=== PATIENT | male | born 1955 | race African-American/Black ===

== ENCOUNTER 2018-06-23 20:30 | Emergency (ER) | payer BC ==
--- NOTE | 2018-06-23 20:44 | ED ---
Back Pain - HPI Summary HPI Summary: The pt is a 63 y/o male presenting to [facility] c/o sudden onset mid back pain since 2 days ago. The pain rated 7/10 in severity radiates to the neck and UE and is aggravated by lying down, turning his head and sudden movement. He took a hot bath to temporary relief. The pt denies CP, abd pain, and SOB. He has never had similar sx before. The pt reports a Mhx of hyperhidrosis and back surgery. - History of Current Complaint Chief Complaint: EDBackInjuryPain Stated Complaint: BACK PAIN Time Seen by Provider: 06/23/18 20:39 Hx Obtained From: Patient Onset/Duration: Sudden Onset, Lasting Days, Still Present Timing: Constant Back Pain Location: Is Discrete @ - mid back, Radiates To - Neck, UEs Severity Initially: Moderate Severity Currently: Moderate Pain Intensity: 7 Pain Scale Used: 0-10 Numeric Aggravating Symptom(s): Movement, Other - Turning his head, Lying down Alleviating Symptom(s): Other - Taking a hot bath - Allergies/Home Medications Allergies/Adverse Reactions: Allergies Allergy/AdvReac Type Severity Reaction Status Date / Time No Known Allergies Allergy Verified 08/15/16 09:25 PMH/Surg Hx/FS Hx/Imm Hx Previously Healthy: No - Hx of hyperhydrosis Endocrine/Hematology History: Denies: Hx Diabetes Cardiovascular History: Reports: Hx Hypertension - OFF MEDS FOR 2 YEARS Sensory History: Denies: Hx Deafness - Cancer History Cancer Type, Location and Year: None reported - Surgical History Surgery Procedure, Year, and Place: Ganglion vasectomy (pt is unsure of the full name) Infectious Disease History: No Infectious Disease History: Denies: Traveled Outside the [place] in Last 30 Days - Family History Known Family History: Positive: Hypertension - Social History Occupation: Unemployed Lives: Alone Alcohol Use: Occasionally Substance Use Type: Reports: None Smoking Status (MU): Never Smoked Tobacco Review of Systems Negative: Chest Pain Negative: Shortness Of Breath Negative: Abdominal Pain Musculoskeletal: Other - Positive: mid-back pain, UE pain, neck pain All Other Systems Reviewed And Are Negative: Yes Physical Exam - Summary Physical Exam Summary: Appearance: Well-appearing, Well-nourished, lying in bed comfortably Skin: Warm, dry, no obvious rash Eyes: sclera anicteric, no conjunctival pallor ENT: mucous membranes moist, pharynx appears normal Neck: Supple, nontender Respiratory: Clear to auscultation, no signs of respiratory distress Cardiovascular: Normal S1, S2. No murmurs. Normal distal pulses in tibial and radial bilaterally.Markedly elevated BP Abdomen: Soft, nontender, normal active bowel sounds present Musculoskeletal: Normal, Strength/ROM Intact Neurological: A&Ox3, awake and alert, mentation is normal, speech is fluent and appropriate Psychiatric: affect is normal, does not appear anxious or depressed Triage Information Reviewed: Yes Vital Signs On Initial Exam: Initial Vitals Temp Pulse Resp BP Pulse Ox 98.3 F 85 18 227/126 95 06/23/18 20:32 06/23/18 20:32 06/23/18 20:32 06/23/18 20:32 06/23/18 20:32 Vital Signs Reviewed: Yes Diagnostics - Vital Signs Vital Signs Temp Pulse Resp BP Pulse Ox 06/23/18 20:32 98.3 F 85 18 227/126 95 - Laboratory Result Diagrams: 06/23/18 20:52 06/23/18 20:52 Lab Statement: Any lab studies that have been ordered have been reviewed, and results considered in the medical decision making process. - CT Chest /Thorax CTA CT Interpretation Completed By: Radiologist - IMPRESSION: No pulmonary embolism.No aortic dissection.The ED physician reviewed this radiology report. 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 The pain rated 7/10 in severity radiates to the neck and UE and is aggravated by lying down, turning his head and sudden movement. The pt denies CP, abd pain, and SOB.A physical exam revealed markedly elevated BP. A Chest/Thorax CTA unremarkable. An EKG reveals RBBB and LAVB. In the ED course, pt was given Iodixanol 100ml IV, Labetalol 20 mg IV, Morphine 10 mg Iv and N.s 0.9% 1000 ml IV which improved the symptoms. Allergies noted. Discharge - Discharge Plan Condition: Good Disposition: HOME Prescriptions: Lisinopril/HCTZ 20/12.5(NF) [Zestoretic 20/12.5(NF)] 1 tab PO DAILY #30 tab traMADol TAB* [Ultram*] 50 mg PO Q6HR PRN #15 tab MDD 6 tabs PRN Reason: Pain Patient Education Materials: Hypertension (ED), Thoracic Back Strain (ED) Referrals: Katrin Simpson MD [Primary Care Provider] - - Attestation Statements Document Initiated by Scribe: Yes Documenting Scribe: Paula Issa Provider For Whom Scribe is Documenting (Include Credential): Dr. Mark Zurita MD Scribe Attestation: Paula Guardado , scribed for Dr. Mark Zurita MD on 06/23/18 at 2210.
[2018-06-23] MEDS ORDERED: Morphine VIAL* 4 MG/ML VIAL (1 ml vial) IV ONE (20:45)
[2018-06-23] MEDS ORDERED: Labetalol IV* 5 MG/ML 20 ML VIAL IV PUSH ONE (20:46)
[2018-06-23] MEDS ORDERED: NS 0.9% 1000 ML* 1,000 ML IV ONE (20:46)
[2018-06-23 21:04] LABS: ABS Basophils 0.1 10^3/ul (0-0.2); ABS Eosinophils 0.3 10^3/ul (0-0.6); ABS Lymphocytes 3.4 10^3/ul (1.0-4.8); ABS Monocytes 0.7 10^3/ul (0-0.8); ABS Neutrophils 4.1 10^3/ul (1.5-7.7); ABS Nucleated RBC 0 10^3/ul; Hematocrit 41 % (42-52); Lymphocyte % 39.9 % (25-47); Mean Corpuscular HGB Conc 34 g/dl (31-36); Mean Corpuscular Hemoglobin 31 pg (27-31); Mean Corpuscular Volume 91 fL (80-94); Mean Platelet Volume 8.4 fL (7.4-10.4); Nucleated Red Blood Cells % 0.2; Platelet Count 270 10^3/ul (150-450); Red Cell Distribution Width 14 % (10.5-15); White Blood Count 8.6 10^3/ul (3.5-10.8)
[2018-06-23] MEDS ORDERED: Iodixanol 320 (CONTRAST) 100 ML SDV IV ONE (21:16)
[2018-06-23 21:26] LABS: EGFR Non-African American 69.6 (>60)
[2018-06-23 22:28] VITALS: BP 157/96
== END 2018-06-23 22:29 | disposition home or self-care (01) ==
LOC: ED 20:30
DX: M54.6 Pain in thoracic spine (principal)
CPT/HCPCS: 36415; 71275; 80053; 80320; 83605; 84484; 85025; 93005; 96361; 96374; 96375; 99283; G0480; J2270; Q9967

== ENCOUNTER 2019-05-25 11:27 | Emergency (ER) | payer MEDICARE ==
[2019-05-25] MEDS ORDERED: hydrALAZINE IV* 20 MG/ML VIAL IV SLOW PU ONE ×2 (12:30→13:37)
--- NOTE | 2019-05-25 12:31 | ED ---
Hypertension - HPI Summary HPI Summary: The patient is a 64 y/o M presenting to [facility] with a chief complaint of elevated blood pressure this morning. He reports he was at Dr. Matos, urology, office because there was a tumor found in his bladder after having episodes of hematuria. While there, his blood pressure was noted to be high. He has a history of hypertension, but he states he doesnt remember the last time he took the medications because he ran out of them and didnt have them refilled. He denies any chest pain, shortness of breath, headache, or dizziness. Currently, his symptoms are rated 0/10 in severity. PMHx: HTN, hyperhidrosis. FHx: HTN. Nonsmoker, occasional EtOH, no substance use. Medications reviewed. Allergies noted. - History of Current Complaint Chief Complaint: EDHypertension Stated Complaint: HIGH BLOOD PRESSURE PER PT Hx Obtained From: Patient Onset/Duration: Started Hours Ago, Still Present Timing: Lasting Hours Aggravating Factor(s): Other: - not medication-compliant Alleviating Factor(s): Nothing Associated Signs & Symptoms: Other: - Negative: chest pain, shortness of breath , dizziness, headache - Allergies/Home Medications Allergies/Adverse Reactions: Allergies Allergy/AdvReac Type Severity Reaction Status Date / Time No Known Allergies Allergy Verified 08/15/16 09:25 PMH/Surg Hx/FS Hx/Imm Hx Endocrine/Hematology History: Denies: Hx Diabetes Cardiovascular History: Reports: Hx Hypertension - OFF MEDS FOR 2 YEARS Denies: Hx Hypercholesterolemia History: Denies: Hx Dialysis, Hx Renal Disease Sensory History: Denies: Hx Deafness - Cancer History Cancer Type, Location and Year: None reported - Surgical History Surgical History: Yes Surgery Procedure, Year, and Place: Ganglion vasectomy (pt is unsure of the full name), hyperhidrosis Infectious Disease History: No Infectious Disease History: Denies: Traveled Outside the [place] in Last 30 Days - Family History Known Family History: Positive: Hypertension - Social History Alcohol Use: Occasionally Hx Substance Use: No Substance Use Type: Reports: None Hx Tobacco Use: No Smoking Status (MU): Never Smoked Tobacco Review of Systems Positive: Other - elevated blood pressure. Negative: Chest Pain Negative: Shortness Of Breath Neurological: Other - Negative: dizziness. Positive: Headache All Other Systems Reviewed And Are Negative: Yes Physical Exam - Summary Physical Exam Summary: VITAL SIGNS: Reviewed. GENERAL: Patient is a well-developed and nourished male who is lying comfortable in the stretcher. Patient is not in any acute respiratory distress. HEAD AND FACE: No signs of trauma. No ecchymosis, hematomas or skull depressions. No sinus tenderness. EYES: PERRLA, EOMI x 2, No injected conjunctiva, no nystagmus. EARS: Hearing grossly intact. Ear canals and tympanic membranes are within normal limits. MOUTH: Oropharynx within normal limits. NECK: Supple, trachea is midline, no adenopathy, no JVD, no carotid bruit, no c- spine tenderness, neck with full ROM. CHEST: Symmetric, no tenderness at palpation. LUNGS: Clear to auscultation bilaterally. No wheezing or crackles. CVS: Regular rate and rhythm, S1 and S2 present, no murmurs or gallops appreciated. ABDOMEN: Soft, non-tender. No signs of distention. No rebound, no guarding, and no masses palpated. Bowel sounds are normal. EXTREMITIES: FROM in all major joints, no edema, no cyanosis or clubbing. NEURO: Alert and oriented x 3. No acute neurological deficits. Speech is normal and follows commands. SKIN: Dry and warm. Triage Information Reviewed: Yes Vital Signs On Initial Exam: Initial Vitals Temp Pulse Resp BP Pulse Ox 97.8 F 74 18 215/137 100 05/25/19 11:40 05/25/19 11:40 05/25/19 11:40 05/25/19 11:40 05/25/19 11:40 Vital Signs Reviewed: Yes Procedures - Sedation Patient Received Moderate/Deep Sedation with Procedure: No Diagnostics - Vital Signs Vital Signs Temp Pulse Resp BP Pulse Ox 05/25/19 11:40 97.8 F 74 18 215/137 100 - Laboratory Result Diagrams: 05/25/19 12:31 05/25/19 12:31 Lab Statement: Any lab studies that have been ordered have been reviewed, and results considered in the medical decision making process. - Radiology Chest X-Ray Radiology Interpretation Completed By: Radiologist Summary of Radiographic Findings: Impression: No active cardiopulmonary disease is noted. ED physician has reviewed this report. - EKG 1223 Cardiac Rate: NL - 70 bpm EKG Rhythm: Sinus Rhythm Summary of EKG Findings: EKG at 1223 reveals NSR at [address] elevations. ED physician has reviewed and interpreted this EKG. Re-Evaluation - Re-Evaluation First Eval Re-Evaluation Time: 13:00 Change: Unchanged Comment: Patient continues to be hypertensive after Hydralazine. Second Eval Re-Evaluation Time: 15:20 Change: Unchanged Comment: Patient continues to be hypertensive after Hydralazine. We will order Labetalol. Hypertension Course/Dx - Course Assessment/Plan: Patient is a 64 y/o M who has history of HTN with a chief complaint of elevated blood pressure this morning at Dr. Matos office without any associated symptoms of chest pain, shortness of breath, dizziness, or headache. He has not been medication compliant for an unknown amount of time. Blood work without a significant abnormality. EKG shows a normal sinus rhythm without ST elevations. Chest x-ray shows no acute pathology. In the ED course the patient was given 40 mg of hydralazine, and the patient is still hypertensive. The patient was given 20 mg of labetalol and the patient is hypotensive. The patient continues to be asymptomatic. I discussed my physical exam and findings with Dr. Sanford from the hospitalist services who accepted the patient for admission. Addendum: Dr. Snyder from the hospitalist services reports that she tried to admit the patient and he refuses. The patient will sign AGAINST MEDICAL ADVICE. I extensively discussed with the patient the benefits and risk of leaving AMA. I also discussed the alternatives to leaving AMA, however, the patient still insist to leave the hospital AMA. The patient is clinically sober, free from distracting injury, appears to have intact insight and judgment and reason and in my opinion has the capacity to make decisions. Patient has full capacity and is cognitively intact. The patient presents with uncontrolled hypertension, I have explained that I am concerned with these symptoms and may represent Angina, AR, CVA and . The patient verbalizes understanding of my concerns. I have also explained the results of the labs and even though they are normal. The primary nurse and the charge nurse also strongly recommended that the patient should not leave AMA. Patient understands the risks of leaving AMA, which includes but is not restricted to . Patient signed the AMA form. Patient was also advised to return to ED if he changes his mind or if the symptoms worsen or other symptoms appear. Patient understands and agrees. Again, I discussed all the findings and test results with the patient. Patient was instructed to return to the emergency room immediately if any of the symptoms return or worsen. Plan of care was discussed with the patient and understands and agrees. All questions were answered at patient satisfaction. There were no further complaints or concerns. Patient signed AMA and he was discharged AMA. - Diagnoses Provider Diagnoses: Uncontrolled hypertension - Physician Notifications Discussed Care Of Patient With: Nini Sanford - hospitalist Time Discussed With Above Provider: 14:20 Instructed by Provider To: Other - I discussed the patients case with Dr. Sanford, who accepts the patient for admission. Dr. Snyder from the hospitalist services reports that the patient is declining admission. She states she will send prescriptions for hypertensive medications, and she has set up an appointment for him at [facility]. Discharge ED - Sign-Out/Discharge Documenting (check all that apply): Patient Departure - Patient will leave AMA. - Discharge Plan Condition: Stable Disposition: AGAINST MEDICAL ADVICE Prescriptions: Amlodipine Besylate [Norvasc] 10 mg PO DAILY #30 tablet Hydrochlorothiazide TAB* [Hydrodiuril TAB*] 25 mg PO DAILY 30 Days #30 tab Referrals: Katrin Simpson MD [Primary Care Provider] - [facility] [Outside] - Billing Disposition and Condition Condition: STABLE Disposition: Against Medical Advice - Attestation Statements Document Initiated by Sharda: Yes Documenting Scribe: Camilla Gaming Provider For Whom Sharda is Documenting (Include Credential): Dr. Maury Fowler MD Scribe Attestation: Camilla Guardado scribed for Dr. Maury Fowler MD on 05/25/19 at 1858. Scribe Documentation Reviewed: Yes Provider Attestation: The documentation as recorded by the Camilla carrizales accurately reflects the service I personally performed and the decisions made by me, Dr. Maury Fowler MD Status of Scribdarrius Document: Viewed
[2019-05-25] MEDS ORDERED: HYDROmorphone INJ* 0.5 MG/0.5 ML SYRINGE IV ONE (12:33)
[2019-05-25] MEDS ORDERED: hydrALAZINE IV* 20 MG/ML VIAL ONE (12:35)
[2019-05-25 12:58] LABS: ABS Basophils 0.1 10^3/ul (0-0.2); ABS Eosinophils 0.1 10^3/ul (0-0.6); ABS Lymphocytes 1.5 10^3/ul (1.0-4.8); ABS Monocytes 0.5 10^3/ul (0-0.8); ABS Neutrophils 4.2 10^3/ul (1.5-7.7); Hematocrit 44 % (42-52); Hemoglobin 14.7 g/dL (14.0-18.0); Lymphocyte % 23.7 %; Mean Corpuscular HGB Conc 34 g/dL (31-36); Mean Corpuscular Hemoglobin 31 pg (27-31); Mean Corpuscular Volume 91 fL (80-94); Mean Platelet Volume 8.4 fL (7.4-10.4); Nucleated Red Blood Cells % 0.1; Platelet Count 219 10^3/uL (150-450); Red Blood Count 4.78 10^6 /uL (4.18-5.48); Red Cell Distribution Width 14 % (10-15); White Blood Count 6.4 10^3/uL (3.5-10.8)
[2019-05-25 13:14] LABS: Albumin 4.4 g/dL (3.2-5.2); Albumin/Globulin Ratio 1.8 (1-3); BUN/Creatinine Ratio 16.5 (8-20); Calcium 9.4 mg/dL (8.6-10.3); EGFR African American 87.7 (>60); EGFR Non-African American 72.5 (>60); Globulin 2.5 g/dL (2-4); Total Bilirubin 0.4 mg/dL (0.2-1.0); Total Protein 6.9 g/dL (6.4-8.9)
[2019-05-25 13:16] LABS: Troponin I 0.01 ng/mL (<0.04)
[2019-05-25 13:18] LABS: CKMB ng/mL 2.6 ng/mL (0.6-6.3)
[2019-05-25 13:39] LABS: TSH (Thyroid Stimulating Horm) 1.01 mcIU/mL (0.34-5.60)
[2019-05-25] MEDS ORDERED: Labetalol IV* 5 MG/ML 20 ML VIAL IV PUSH ONE ×2 (15:23→15:25)
--- NOTE | 2019-05-25 16:15 | CONSULT ---
Subjective Date of Service: 05/25/19 Interval History: Medicine Consult Note 64 M PMH HTN, bladder mass concerning for cancer currently in outpt workup., he presented to clinic this morning and wa found to be hypertensive to systolic 200s and thus was referred ot the ED He had no GUTIÉRREZ, visual sx, chest pain, shortness of breath, GI or MSK complaints. He has a history of HTN and has been off meds for svereal years, he otherwise considers himself healthy. He has no other complaints, he recently relocated from [place] and hasnt reestablished with primary care. He eats a fairly healthy varied diet and exercises by riding his bike daily never with chest pain ER course: 215/130s, Recd 40mg IV Hydral with improvement to 170s, Labetalol 20mg IV, mild improvement tot the 160s. I offered pt inpatient mgmt., starting oral meds and monitoring of which he has declined. He understands the risks pof being d/c to home and feels strongly he would feel calmer and have better BP at home none theless. Family History: Findings - + HTN Cataract Glaucoma Social History: Findings - Lives with sister, 20 pack year smoker quit in 2003, 1-2 beers per week, never illicits Past Medical History: Unchanged from Admission Review of Systems - Measurements Intake and Output: Intake and Output Last 24 Hours 05/23/19 05/24/19 05/25/19 05/26/19 06:59 06:59 06:59 06:59 Weight 200 lb - Review of Systems General Comments: see HPI Objective Vital Signs - 8 hr 05/25/19 05/25/19 11:40 13:32 Temperature 97.8 F Pulse Rate 74 Respiratory 18 Rate Blood Pressure 215/137 218/110 (mmHg) O2 Sat by Pulse 100 Oximetry Appearance: Pleasant man in NAD Eyes: No Scleral Icterus, PERRLA Ears/Nose/Mouth/Throat: NL Teeth, Lips, Gums Neck: NL Appearance and Movements; NL JVP, Trachea Midline Respiratory: Symmetrical Chest Expansion and Respiratory Effort, Clear to Auscultation Cardiovascular: NL Sounds; No Murmurs; No JVD, RRR Abdominal: NL Sounds; No Tenderness; No Distention Lymphatic: No Cervical Adenopathy, No Axillary Adenopathy Extremities: No Edema Skin: No Rash or Ulcers Neurological: Alert and Oriented x 3, NL Sensation, NL Gait, NL Muscle Strength and Tone Result Diagrams: 05/25/19 12:31 05/25/19 12:31 Assessment/Plan - Billing 64 M PMH HTN, bladder mass concerning for cancer currently in outpt workup presented with HTN urgency likely form untreated essential HTN #HTN Urgency: His BP has been brought down nicely in the ER to systolic 160s/ diastolic 90s, though it is still labile -We would recommend initiation of Amlodipine 5mg and HCTZ 25mg, based on dual drug therapy trials in black patients showing CCB and thiazide like diruetics most efficacious -I have actually sent these in electronically to [facility] -Needs FU with PCP and given info for [facility] #Bladder mass: FU with Dr Barlow Overall he has elected to go home against medical advice, I will optimize him to the bes tof my ability with dual agent anti HTN
[2019-05-25 16:21] VITALS: BP 188/96
== END 2019-05-25 16:21 | disposition left against medical advice (07) ==
LOC: ED 11:27
DX: I10 Essential (primary) hypertension (principal); R61 Generalized hyperhidrosis; Z87.891 Personal history of nicotine dependence
CPT/HCPCS: 36415; 71046; 80053; 82550; 82553; 83605; 83880; 84443; 84484; 85025; 93005; 96374; 96375; 96376; 99283; J0360

== ENCOUNTER 2019-08-06 06:49 | Inpatient (IN) | payer MEDICARE ==
--- NOTE | 2019-07-21 07:31 | HP ---
HISTORY AND PHYSICAL: DATE OF PLANNED ADMISSION AND SURGERY: 08/06/19 HISTORY OF PRESENT ILLNESS: Mr. Seymour is a 64-year-old male who is admitted with multiple bladder tumors for cystoscopy and transurethral resection of bladder tumors. Mr. Seymour presented to my office about 2 months ago with a 1-month history of recurrent episodes of total gross painless hematuria. There was no associated flank or abdominal pain and no voiding symptoms. He also did not have any symptoms of urinary tract infections. The patient was worked up for the gross hematuria and had a CT urogram, which showed normal kidneys without any hydronephrosis or abnormal filling defects in the collecting systems or the ureters. There were multiple bladder lesions noted involving both the right and left esparza of the bladder. No extravesical invasion by the bladder tumors. The prostate looked enlarged. There was no lymphadenopathy noted. 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 The patient was also worked up for the prostate enlargement and had a PSA, which was markedly elevated at 32, confirmed on repeat. Rectal examination showed a moderately enlarged prostate with firmness in the left lobe but no induration. Because of the elevated PSA, the patient had transrectal ultrasound and multiple prostate biopsies. Pathology showed bulky [place] 7 (3+4) adenocarcinoma of the prostate involving all the 6 biopsy cores obtained from the left lobe. There was a very small focus of Koby 6 adenocarcinoma on 1 of the 6 biopsies from the right lobe. The patient had bone scan ordered for metastatic workup of the prostate cancer. Past history is otherwise completely negative. No past history of renal diseases or calculi. No voiding symptoms. PAST MEDICAL HISTORY AND SYSTEM REVIEW: He is in very good health. He denies any cardiac or pulmonary diseases or symptoms. He has very good exercise tolerance. No history of mental health problems. MEDICATIONS: He is on no chronic medications. He denies any recreational drug use. ALLERGIES: He reports being allergic to Cephalosporins. FAMILY HISTORY: Negative for prostate carcinoma. SOCIAL HISTORY: The patient has a past history of smoking and he smoked half a pack per day for about 5 years and stopped 20 years ago. He works as a industrial custodian. PHYSICAL EXAMINATION GENERAL: Pleasant and healthy looking black male who looks his age. VITAL SIGNS: Blood pressure 130/80, pulse of 70. LUNGS: Clear. HEART: Regular and rhythmic. No murmurs. ABDOMEN: Soft. No masses, no tenderness, and no CVA tenderness. EXTERNAL GENITALIA: Circumcised. No penile lesions. Normal testes and no inguinal hernias. EXTREMITIES: no edema. RECTAL: Moderately enlarged prostate with firmness but no induration of the left lobe. IMPRESSION: 1. Multiple bladder tumors both on cystoscopy and on CT urogram with no hydronephrosis and no abnormal filling defects in the ureters or in the collecting systems. 2. Bulky Koby 7 adenocarcinoma of the prostate with PSA of 32 and pending bone scan. PLAN: Plan is for cystoscopy and transurethral resection of multiple bladder tumors. I discussed the above operation in detail with the patient, some of the potential complications including hematuria and bladder perforation. Depending upon the pathological staging of the bladder tumors, and on the result of the bone scan (which was not done yet at the time of this dictation), will decide on the definitive treatment of both the bladder cancer and the prostate cancer. [id number] #: [id number] MTDD
[~2019-08-06 06:49] MED LIST: Buffered Lidocaine 1% SYRIN* 1 ML/SYRINGE INTRADERM ONE; Lactated Ringers 1000 ML Bag* 1,000 ML IV SCH
[2019-08-06] MEDS ORDERED: Acetaminophen TAB* 325 MG ONE ×2 (07:35→10:51)
[2019-08-06] MEDS ORDERED: Gabapentin CAP(*) 300 MG ONE ×2 (07:35→10:51)
[2019-08-06] MEDS ORDERED: Famotidine IV* 10 MG/ML 2 ML (20 mg) ONE ×2 (07:36→16:37)
[2019-08-06] MEDS ORDERED: Buffered Lidocaine 1% SYRIN* 1 ML/SYRINGE INTRADERM ONE (07:36)
[2019-08-06] MEDS ORDERED: Levofloxacin 750 MG IVPREMIX(* 750 MG/150 ML BAG ONE (07:36)
[2019-08-06] MEDS: Famotidine IV* 10 MG/ML 2 ML (20 mg) IV ONE (08:08)
[2019-08-06] MEDS: Gabapentin CAP(*) 300 MG PO ONE ×2 (08:08→10:54)
[2019-08-06] MEDS: Acetaminophen TAB* 325 MG PO ONE ×2 (08:09→10:54)
[2019-08-06] MEDS ORDERED: fentaNYL* 50 MCG/ML 2 ML VIAL (100 MCG VIAL) ONE ×5 (08:23→16:43)
[2019-08-06] MEDS ORDERED: Midazolam* 1 MG/ML 2 ML VIAL (2 MG) ONE ×2 (08:23→16:43)
[2019-08-06] MEDS ORDERED: Ondansetron INJ* 2 MG/ML VIAL ONE ×2 (08:24→18:04)
[2019-08-06] MEDS ORDERED: Lidocaine 2% PF * 5 ML VIAL ONE ×2 (08:24→16:43)
[2019-08-06] MEDS ORDERED: Propofol* 10 MG/ML 20 ML BTL ONE (08:24)
[2019-08-06] MEDS ORDERED: Dexamethasone IV* 4 MG/ML 1 ML (4 MG) ONE (08:24)
[2019-08-06] MEDS ORDERED: Ketorolac INJ* 30 MG/ML 1 ML VIAL ONE (08:24)
[2019-08-06] MEDS ORDERED: EPHEDrine (Pressors)* 50 MG/ML VIAL ONE ×2 (08:56→17:35)
[2019-08-06] MEDS ORDERED: Ondansetron INJ* 2 MG/ML VIAL IV PRN ×2 (09:01→17:44)
[2019-08-06] MEDS ORDERED: Naloxone* 0.4 MG/ML 1 ML VIAL IV PRN (09:01)
[2019-08-06] MEDS ORDERED: DiMENhydriNATE IV* 50 MG/ML VIAL IV PUSH PRN ×2 (09:01→17:44)
[2019-08-06] MEDS ORDERED: diPHENhydraMINE IV* 50 MG/ML 1 ml VIAL (BENADRYL) IV PRN (09:01)
[2019-08-06] MEDS ORDERED: HYDROcodone/ACETAMIN 5-325 MG* 1 TAB PO PRN ×2 (09:01→17:44)
[2019-08-06] MEDS ORDERED: Cisatracurium* 2 MG/ML MDV 5 ML ONE ×2 (09:15→09:43)
[2019-08-06] MEDS ORDERED: Fluorescein 10% INJ* 100 MG/ML AMP ONE (09:47)
[2019-08-06] MEDS ORDERED: Neostigmine Methylsulfate* 3 MG/3 ML SYRINGE ONE (10:22)
[2019-08-06] MEDS ORDERED: Glycopyrrolate IV* 0.2 MG/ML 1 ML VIAL ONE (10:23)
[2019-08-06] MEDS ORDERED: Metoprolol Tartrate IV* 1 MG/ML 5 ML VIAL ONE (10:35)
[2019-08-06] MEDS ORDERED: Oxybutynin TAB* 5 MG ONE (10:51)
[2019-08-06] MEDS ORDERED: oxyCODONE/Acetamin 5/325 MG* TAB ONE (11:35)
[2019-08-06] MEDS: fentaNYL* 50 MCG/ML 2 ML VIAL (100 MCG VIAL) IV PRN ×4 (11:36→14:51)
[2019-08-06] MEDS: hydrALAZINE IV* 20 MG/ML VIAL IV SLOW PU PRN ×2 (14:04→14:51)
[2019-08-06] MEDS ORDERED: hydrALAZINE IV* 20 MG/ML VIAL ONE (14:15)
[2019-08-06] MEDS ORDERED: Rocuronium* 10 MG/ML VIAL ONE (16:43)
[2019-08-06] MEDS ORDERED: Succinylcholine* 20 MG/ML 10 ML VIAL ONE (16:55)
[2019-08-06] MEDS ORDERED: fentaNYL* 50 MCG/ML 2 ML VIAL (100 MCG VIAL) IV PRN (17:44)
[2019-08-06] MEDS ORDERED: Acetaminophen IV 1GM/100ML * 100 ML ONE (17:45)
[2019-08-06 17:49] LABS: Hematocrit 34 % (42-52); Hemoglobin 11.7 g/dL (14.0-18.0)
[2019-08-06 18:05] LABS: Calcium 8.3 mg/dL (8.6-10.3); EGFR African American 71.5 (>60); EGFR Non-African American 59.1 (>60); Potassium 4.1 mmol/L (3.5-5.0)
[2019-08-06] MEDS ORDERED: Labetalol IV* 5 MG/ML 20 ML VIAL ONE (18:12)
--- NOTE | 2019-08-06 19:22 | OP ---
OPERATIVE REPORT: DATE OF OPERATION: 08/06/19 DATE OF : 53 SURGEON: Dany Ho MD ANESTHESIOLOGIST: Dr. Kyler Mishra. ANESTHESIA: General endotracheal. PRE-OP DIAGNOSES: 1. Extensive multiple bladder tumors. 2. Prostate carcinoma with bladder outlet obstruction. POST-OP DIAGNOSES: 1. Extensive multiple bladder tumors. 2. Prostate carcinoma with bladder outlet obstruction. OPERATIVE PROCEDURE: 1. Cystoscopy. 2. Transurethral resection of multiple bladder tumors (6 to 7 cm). INDICATIONS FOR PROCEDURE: Mr. Seymour is a 64-year-old -Mal[place] male who presented to my office because of recurrent episodes of gross hematuria. On his initial evaluation, he was found to have a firm prostate and an elevated PSA of 32. Cystoscopy showed extensive bladder tumors. CT urogram showed normal upper tracts, normal ureters without any abnormal filling defects or any hydronephrosis. There was no evidence of extension of the tumors outside the bladder by CT scan. Prostate biopsies showed Koby 7 adenocarcinoma of the prostate. Bone scan showed no metastatic disease. The patient is admitted for transurethral resection of the bladder tumors for therapeutic and diagnostic purposes. PATHOLOGY: At cystoscopy, the penile and bulbar urethrae looked normal. The prostatic urethra was obstructing, measuring 3.5 cm in length. Examination of the bladder showed multiple bladder tumors. There were tumors involving the anterior bladder neck, extending into the proximal prostatic urethra. There were large bulk of tumors involving the right anterolateral bladder wall extending into the level of the bladder neck. There were also multiple tumors in the base of the bladder and a large bulk of tumor in the left lateral and anterolateral bladder wall. 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 The trigone was not involved with the tumors, and the ureteral orifices intact. DESCRIPTION OF PROCEDURE: After successful general anesthesia with the patient in the dorsal lithotomy position and after proper scrubbing and draping, cystoscopy was performed. The bladder was carefully inspected and the above findings were noted. The resectoscope was then introduced inside the bladder. Water was used for irrigation and the inflow and outflow were adjusted to avoid overdistention of the bladder. The bladder tumors involving the anterior bladder neck and the proximal prostatic urethra were first resected down to muscle. The bleeders were electrocoagulated. Because of an early obturator reflex that was noted when the right lateral wall tumors were resected, the patient was then converted from an LMA to an endotracheal intubation and the patient was paralyzed. Even with the paralysis, there was small degree of obturator reflex, but not enough to cause any bladder perforation. The setting on the cutting current was then reduced and the tumor was resected without triggering any obturator reflex. All the tumors that were visualized were resected down to muscle. The bleeders were electrocoagulated. Final inspection showed a deep area of resection at 1 o' clock just proximal to the bladder neck and that was the site of the first obturator reflex that was noted. There did not seem to be a bladder perforation , but the bladder wall was very thin. The bladder was irrigated and all the resected tissue was evacuated and sent for pathology. The patient was given 0.5 cc of fluorescein to allow better visualization of the ureteral orifices were. Good efflux was seen coming from the right, but no efflux was noted from the left side, although the left orifice was visualized and was intact and there was no resection or fulguration done in the left trigone. After making sure there was good hemostasis and no gross residual tumors and no residual floating tissue, the resectoscope was removed and a size 20-[place] Hill catheter was passed inside the bladder and the balloon inflated with 20 cc of water. Irrigations yielded clear returns. The patient tolerated the procedure well and left the operating room in good condition. The blood loss was estimated at less than 100 cc. The specimen was bladder tumors. Because of the extent of resection, the decision was made not to give the patient mitomycin-C for fear of systemic absorption. The plan is to discharge the patient home on a Hill catheter drainage. [id number]/[facility] #: [id number] [facility]
--- NOTE | 2019-08-06 19:29 | CONSULT ---
Subjective Date of Service: 08/06/19 Interval History: Patient seen in consultation in recovery room at the Request of Dr. Ho for Hypertension. This is a 64 y/o male admitted for Bladder tumor resection diagnosed recently as outpatient during routine work up for hematuria. He was admitted and underwent cystoscopy with transurethral resection of bladder tumore. Intra-op his BP was noted to elevated in the 160-180 and required IV labetolol. I was asked to evaluate patient and manage his BP. Patient states he normally takes HCTZ 25 mg at home. No history of CAD or DM. No chest pain no dizziness and no history of CVA. Denies tobacco or alcohol use Family History: Unchanged from Admission Social History: Findings - No Alcohol or tobacco use. Single no children Past Medical History: Findings - Hypertension, Bladder and prostate cancer Review of Systems - Measurements Intake and Output: Intake and Output Last 24 Hours 08/04/19 08/05/19 08/06/19 08/07/19 06:59 06:59 06:59 06:59 Intake Total 4500 Output Total 400 Balance 4100 Weight 185 lb 9.6 oz Intake: IV Fluids 4100 LR 4100 Oral 400 Output: Hill 400 - Review of Systems Constitutional Symptoms: Negative: Weight Gain, Fatigue Dermatology: Negative: Normal HEENT: Negative: Normal, Sinus Problem Eyes: Negative: Normal, Eye Pain Thyroid: Negative: Normal, Goiter Pulmonary: Negative: Normal, Cough Cardiology: Negative: Chest Pain, Syncope Gastroenterology: Negative: Normal, Abdominal Pain Genital - Urinary: Positive: Hematuria Genitourinary - Male: Positive: Other - prostate cancer Musculoskeletal: Negative: Joint Pain Neurology: Negative: Normal, Headache Psychiatry: Negative: Depression, Anxiety Objective Active Medications: Acetaminophen (Tylenol Tab*) 650 mg PO ONCE ONE Stop: 08/06/19 06:01 Last Admin: 08/06/19 10:54 Dose: 650 mg Hydrocodone Bitart/Acetaminophen ([place] 5-325 Tab*) 1 tab PO ONCE PRN PRN Reason: PAIN - MODERATE Hydrocodone Bitart/Acetaminophen ([place] 5-325 Tab*) 1 tab PO ONCE PRN PRN Reason: PAIN - MODERATE Dimenhydrinate (Dramamine Iv*) 25 mg IV PUSH ONCE PRN PRN Reason: NAUSEA/VOMITING Dimenhydrinate (Dramamine Iv*) 25 mg IV PUSH ONCE PRN PRN Reason: NAUSEA/VOMITING Diphenhydramine HCl (Benadryl Iv*) 25 mg IV ONCE PRN PRN Reason: ITCHING Famotidine (Pepcid Iv*) 20 mg IV ONCE ONE Stop: 08/06/19 06:01 Last Admin: 08/06/19 08:08 Dose: 20 mg Fentanyl Citrate (Fentanyl*) 50 mcg IV Q5M PRN PRN Reason: PAIN - MODERATE Last Admin: 08/06/19 14:51 Dose: 50 mcg Fentanyl Citrate (Fentanyl*) 50 mcg IV Q5M PRN PRN Reason: PAIN - MODERATE Gabapentin (Neurontin Cap(*)) 300 mg PO ONCE ONE Stop: 08/06/19 06:01 Last Admin: 08/06/19 10:54 Dose: 300 mg Hydralazine HCl (Apresoline Iv*) 5 mg IV SLOW PU Q20M PRN PRN Reason: SBP greater than 170 Last Admin: 08/06/19 14:51 Dose: 5 mg Lactated Ringer's (Lactated Ringers 1000 Ml Bag*) 1,000 mls @ 125 mls/hr IV PER RATE [facility] Last Admin: 08/06/19 08:07 Dose: 125 mls/hr Lidocaine/Sodium Bicarbonate (Buffered Lidocaine 1% Syrin*) 0.2 ml INTRADERM ONCE ONE Stop: 08/05/19 11:11 Last Admin: 08/06/19 08:07 Dose: 0.2 ml Naloxone HCl (Narcan*) 0.08 mg IV Q2M PRN PRN Reason: severe induced resp depression Ondansetron HCl (Zofran Inj*) 4 mg IV ONCE PRN PRN Reason: NAUSEA/VOMITING Ondansetron HCl (Zofran Inj*) 4 mg IV ONCE PRN PRN Reason: NAUSEA/VOMITING Vital Signs - 8 hr 08/06/19 08/06/19 08/06/19 11:36 11:42 12:00 Temperature Pulse Rate 62 65 Respiratory 18 12 11 Rate Blood Pressure 198/106 (mmHg) O2 Sat by Pulse 100 99 Oximetry 08/06/19 08/06/19 08/06/19 12:01 12:30 12:32 Temperature Pulse Rate 70 82 Respiratory 15 18 16 Rate Blood Pressure 195/105 193/115 (mmHg) O2 Sat by Pulse 99 100 Oximetry 08/06/19 08/06/19 08/06/19 14:07 14:11 14:13 Temperature Pulse Rate 92 95 Respiratory 18 Rate Blood Pressure 223/131 (mmHg) O2 Sat by Pulse 100 100 Oximetry 08/06/19 08/06/19 08/06/19 14:16 14:31 14:46 Temperature Pulse Rate 95 84 Respiratory Rate Blood Pressure 212/135 198/115 172/104 (mmHg) O2 Sat by Pulse 100 98 Oximetry 08/06/19 08/06/19 08/06/19 14:51 15:00 15:01 Temperature 98.6 F Pulse Rate 82 91 Respiratory 14 Rate Blood Pressure 152/80 (mmHg) O2 Sat by Pulse 100 99 Oximetry 08/06/19 08/06/19 08/06/19 15:15 15:31 16:02 Temperature Pulse Rate 96 95 Respiratory Rate Blood Pressure 157/88 173/90 181/105 (mmHg) O2 Sat by Pulse 98 99 Oximetry 08/06/19 08/06/19 08/06/19 16:05 16:15 16:31 Temperature Pulse Rate 94 101 Respiratory Rate Blood Pressure 186/110 175/96 (mmHg) O2 Sat by Pulse 98 100 Oximetry 08/06/19 08/06/19 08/06/19 18:20 18:21 18:24 Temperature 97.3 F Pulse Rate Respiratory 16 11 Rate Blood Pressure 151/88 (mmHg) O2 Sat by Pulse Oximetry 08/06/19 08/06/19 08/06/19 18:26 18:31 18:36 Temperature Pulse Rate 76 76 Respiratory 12 16 17 Rate Blood Pressure 156/106 136/81 137/79 (mmHg) O2 Sat by Pulse 100 99 Oximetry 08/06/19 08/06/19 08/06/19 18:46 19:00 19:01 Temperature Pulse Rate 77 70 Respiratory 16 15 16 Rate Blood Pressure 143/79 133/77 (mmHg) O2 Sat by Pulse 99 100 Oximetry 08/06/19 19:16 Temperature Pulse Rate Respiratory 22 Rate Blood Pressure 141/88 (mmHg) O2 Sat by Pulse Oximetry Oxygen Devices in Use Now: None Appearance: awake, alert no acute distress. Eyes: No Scleral Icterus, - - EOMI Ears/Nose/Mouth/Throat: NL Teeth, Lips, Gums, Mucous Membranes Moist Neck: Trachea Midline Respiratory: Symmetrical Chest Expansion and Respiratory Effort, Clear to Auscultation Cardiovascular: NL Sounds; No Murmurs; No JVD, RRR Abdominal: NL Sounds; No Tenderness; No Distention, No Hepatosplenomegaly, - - Hill in place with CBI in progress Extremities: No Edema Skin: No Rash or Ulcers Neurological: Alert and Oriented x 3 Result Diagrams: 08/06/19 17:30 08/06/19 17:30 Assessment/Plan - Billing Plan By Medical Problem: 64 y/o AA male admitted for Hematuria related to Bladder tumor underwent cystoscopy and transurethral bladder tumor resection currently on CBI with BP seemed to be uncontrolled 1. Hypertension - Continue HCTZ 25 mg as per home. Took his this morning will continue QAM - Will add lisinopril 10 mg tonight and QAM - Will place PRN hydralazine 10 mg IV Q4hrs PRN for SBP above 160 2. Prostate and Bladder cancer - As per Dr. Ho Thank you for allowing us to be part of [facility]. Will follow up in morning for further recommendation as required
[2019-08-06] MEDS ORDERED: hydrALAZINE IV* 20 MG/ML VIAL IV SLOW PU PRN (20:04)
[2019-08-06] MEDS ORDERED: oxyCODONE/Acetamin 5/325 MG* TAB PO PRN (23:08)
[2019-08-06] MEDS ORDERED: Oxybutynin TAB* 5 MG PO PRN (23:09)
[2019-08-06] MEDS ORDERED: Lidocaine 2% JELLY* 6 ML JELLY TOPICAL PRN (23:09)
--- NOTE | 2019-08-06 23:37 | OP ---
OPERATIVE REPORT: DATE OF OPERATION: 08/06/19 DATE OF : 53 SURGEON: Dany Ho MD ANESTHESIOLOGIST: Dr. Kyler Mishra. ANESTHESIA: General. PRE-OP DIAGNOSIS: Post transurethral resection bleeding. POST-OP DIAGNOSES: 1. Post transurethral resection bleeding. 2. Clot urinary retention. OPERATIVE PROCEDURE: 1. Cystoscopy. 2. Evacuation of clot retention. 3. Extensive fulguration of bladder bleeders. INDICATIONS: Mr. Seymour is a 64-year-old male, who was diagnosed with extensive bladder tumors. This morning, he underwent transurethral resection of all the bladder tumors seen. The resection was extensive and fulguration of all the bleeders was performed. At the end of the procedure, his urine was clear. He was kept on catheter drainage. Later on while still in the recovery room, the urine became bloody. He then went to clot retention. He was irrigated and then placed on continuous bladder irrigation. He continues to have gross hematuria. Because of the above history and the persistent hematuria, the patient is taken to the operating room on an urgent basis for cystoscopy and fulguration of the bleeders. PATHOLOGY: At cystoscopy, there were multiple clots inside the bladder. After evacuation of all the clots, there was venous oozing from several areas at the sites of the resection. There were no arterial bleeders noted. No specific area of large venous oozing that was noted that could have explained his clot retention. There was no evidence of any bladder perforation. DESCRIPTION OF PROCEDURE: After successful general anesthesia, the patient was placed in the lithotomy position and was prepped and draped for a cystoscopy. The resectoscope was introduced inside the bladder. The bladder was then thoroughly irrigated and all the clots were evacuated. Careful inspection was then carried. All the bed of the resected tumors were extensively fulgurated. All the oozing that was encountered was also fulgurated extensively. There was some oozing noted from the proximal prostatic urethra where resection was done and it also thoroughly fulgurated. Specific attention was carried to the 1 o'clock area proximal to the bladder neck where there was a deep cut when the patient had an obturator reflex. No bleeding was noted from that area and there did not seem like he had any bladder perforation there. Care was taken not to fulgurate in the area of the trigone to avoid injuring the orifices. At the end of the procedure, the irrigation was stopped and inspection was carried and there was no venous oozing noted. The resectoscope was then removed and a size 24-Kinyarwanda three-way catheter was passed inside the bladder and balloon inflated with 30 cc of water. A gentle traction was applied and the Hill was taped to the right thigh of the patient. Continuous bladder irrigation was instituted and the outflow was cleared at low CBI rate. The patient tolerated the procedure well and left the operating room in good condition. The plan is to observe the patient overnight. [id number]/[facility] #: [id number] [facility]CTOR[facility]
[2019-08-06] MEDS: Lactated Ringers 1000 ML Bag* 1,000 ML IV SCH (23:41)
[2019-08-06] MEDS: Lisinopril TAB* 10 MG PO SCH (23:41)
[2019-08-07 05:33] LABS: Hematocrit 30 % (42-52); Hemoglobin 10.7 g/dL (14.0-18.0)
[2019-08-07 05:49] LABS: BUN/Creatinine Ratio 12.9 (8-20); Calcium 8.2 mg/dL (8.6-10.3); EGFR African American 76.5 (>60); EGFR Non-African American 63.2 (>60)
[2019-08-07] MEDS: Lactated Ringers 1000 ML Bag* 1,000 ML IV SCH (06:05)
[2019-08-07] MEDS: Lisinopril TAB* 10 MG PO SCH (08:44)
[2019-08-07] MEDS ORDERED: Oxybutynin TAB* 5 MG PO PRN (09:00)
[2019-08-07] MEDS ORDERED: Levofloxacin TAB* 500 MG PO ONE (09:00)
[2019-08-07] MEDS ORDERED: Hydrochlorothiazide TAB* 25 MG PO SCH (09:00)
--- NOTE | 2019-08-07 10:20 | PN ---
Subjective Date of Service: 08/07/19 Interval History: Patient, seen BP has improved this morning BP from 223/131 to 113/56. Some of his BP most likely due to anisa-op Pain and anesthesia. nonetheless his baseline at home range in the SBP 150's. He tolerated lisinopril 10 mg well. No adverse effect. I will decrease his home HCTZ 25 mg and will change to Lisinopril -HCTZ combo 10/12.5, more effective and will have potassium sparing component to it. Currently resting in bed no chest pain. He will be going home with beltran as per urology recommendations Social History: Findings - No Alcohol or tobacco use. Single no children Past Medical History: Unchanged from Admission - Hypertension, Bladder and prostate cancer Objective Active Medications: Hydralazine HCl (Apresoline Iv*) 10 mg IV SLOW PU Q6H PRN PRN Reason: BLOOD PRESSURE Hydrochlorothiazide (Hydrodiuril Tab*) 25 mg PO DAILY [facility] Last Admin: 08/07/19 08:44 Dose: 25 mg Lactated Ringer's (Lactated Ringers 1000 Ml Bag*) 1,000 mls @ 150 mls/hr IV PER RATE [facility] Last Admin: 08/07/19 06:05 Dose: 150 mls/hr Lidocaine HCl (Lidocaine 2% Jelly*) 1 applic TOPICAL Q1H PRN PRN Reason: AROUND MEATUS Last Admin: 08/07/19 06:08 Dose: 1 applic Lisinopril (Prinivil Tab*) 10 mg PO DAILY [facility] Last Admin: 08/07/19 08:44 Dose: 10 mg Oxybutynin Chloride (Ditropan Tab*) 5 mg PO Q6H PRN PRN Reason: BLADDER SPASMS Oxycodone/Acetaminophen (Percocet 5/325 Tab*) 2 tab PO Q4H PRN PRN Reason: Pain Last Admin: 08/07/19 07:12 Dose: 1 tab Vital Signs - 8 hr 08/07/19 08/07/19 08/07/19 07:12 07:39 08:46 Temperature 99.6 F Pulse Rate 67 Respiratory 18 14 18 Rate Blood Pressure 113/56 (mmHg) O2 Sat by Pulse 98 Oximetry Oxygen Devices in Use Now: None Appearance: Awake, alert no distress Eyes: No Scleral Icterus, - - EOMI Ears/Nose/Mouth/Throat: NL Teeth, Lips, Gums, Clear Oropharnyx, Mucous Membranes Moist Neck: NL Appearance and Movements; NL JVP, Trachea Midline Respiratory: Symmetrical Chest Expansion and Respiratory Effort, Clear to Auscultation Cardiovascular: NL Sounds; No Murmurs; No JVD, RRR, No Edema Abdominal: NL Sounds; No Tenderness; No Distention Neurological: Alert and Oriented x 3, NL Muscle Strength and Tone Result Diagrams: 08/07/19 05:26 08/07/19 05:26 Assess/Plan/Problems-Billing Plan By Medical Problem: 64 y/o AA male admitted for Hematuria related to Bladder tumor underwent cystoscopy and transurethral bladder tumor resection currently on CBI with BP seemed to be uncontrolled - Patient Problems (1) Hypertension Current Visit: Yes Status: Acute Code(s): I10 - ESSENTIAL (PRIMARY) HYPERTENSION SNOMED Code(s): 78854948 Comment: - BP significantly improved - Will decrease home HCTZ to 12.5 mg daily and add lisinopril 10 mg daily - Tolerated well in house. Rx for Lisinopril/HCTZ 10/12.5 mg has been send to his pharmacy - Follow up with PCP 1-2 weeks for routine BP and Lab check in 1-2 weeks - He was instructed to stop taking his HCTZ 25 mg at home (2) Bladder cancer Current Visit: Yes Status: Acute Comment: - s/p cystoscopy and transurethral bladder tumor resection 08/06/[address] Ho (3) Prostate cancer Current Visit: Yes Status: Acute Code(s): C61 - MALIGNANT NEOPLASM OF PROSTATE SNOMED Code(s): 662159520
[2019-08-07] MEDS ORDERED: Lactated Ringers 1000 ML Bag* 1,000 ML IV SCH (11:00)
[2019-08-07 11:07] VITALS: BP 101/59
== END 2019-08-07 15:00 | disposition home or self-care (01) | DRG 663 ==
LOC: OR 06:49 → SSU 21:56
PROVIDERS: ADMIT Urology; ATTEND Urology
PROC: 0W3R8ZZ Control Bleeding in Genitourinary Tract, Via Natural or Artificial Opening Endoscopic (ICD-10-PCS; 2019-08-06)
PROC: 0TBD8ZZ Excision of Urethra, Via Natural or Artificial Opening Endoscopic (ICD-10-PCS; 2019-08-06)
PROC: 0TCB8ZZ Extirpation of Matter from Bladder, Via Natural or Artificial Opening Endoscopic (ICD-10-PCS; 2019-08-06)
PROC: 0TBC8ZZ Excision of Bladder Neck, Via Natural or Artificial Opening Endoscopic (ICD-10-PCS; principal; 2019-08-06 08:30)
DX: C67.9 Malignant neoplasm of bladder, unspecified (principal); N13.8 Other obstructive and reflux uropathy; N99.820 Postprocedural hemorrhage of a genitourinary system organ or structure following a genitourinary system procedure; I10 Essential (primary) hypertension; R31.9 Hematuria, unspecified; C61 Malignant neoplasm of prostate; R33.8 Other retention of urine; Y83.8 Other surgical procedures as the cause of abnormal reaction of the patient, or of later complication, without mention of misadventure at the time of the procedure; Y92.234 Operating room of hospital as the place of occurrence of the external cause; Z88.1 Allergy status to other antibiotic agents; Z87.891 Personal history of nicotine dependence
CPT/HCPCS: 36415; 80048; 85014; 85018; 86850; 86900; 86901; 88305; A9270-GY; J0330; J0360; J1100; J1885; J2250; J2405; J2704; J2710; J3010; J3490

== ENCOUNTER 2019-09-22 08:55 | Observation (INO) | payer MEDICARE, OTHER ==
[2019-09-22] MEDS ORDERED: NS 0.9% 1000 ML** 1,000 ML IV ONE (09:09)
[2019-09-22] MEDS ORDERED: hydrALAZINE IV* 20 MG/ML VIAL IV SLOW PU ONE (09:09)
--- NOTE | 2019-09-22 09:14 | ED ---
HPI Cardiac - HPI Summary HPI Summary: 64 year old M presenting to [facility] accompanied by EMS complains of palpitations and dizziness since this morning 09/19/2019. EMS states an EKG reported negative STEMI and that his BP was in the 200s. Patient reported mild CP but not as of now. Patient denies change in vision or abd pain. Elevated BP in the 200s with a baseline of around 150 noted. PMHx of HTN which he is on meds for. He recently switched to lisinopril/hctz a month ago. No PMHx of diabetes, GA, or thyroid problem. 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 The patient denies current pain. Symptoms aggravated by nothing. Symptoms alleviated by nothing. - History of Current Complaint Stated Complaint: PALPITATIONS/DIZZINESS PER EMS Hx Obtained From: Patient Onset/Duration: Started Hours Ago, Still Present Timing: Constant Current Severity: Mild Pain Intensity: 0 Pain Scale Used: 0-10 Numeric Aggravating Factor(s): Nothing Alleviating Factor(s): Nothing Associated Signs and Symptoms: Positive: Dizziness, Palpitations, Other: - negative - changes in vision. Negative: Chest Pain - not currently, Abdominal Pain - Additional Pertinent History Primary Care Physician: [id number] - Allergy/Home Medications Allergies/Adverse Reactions: Allergies Allergy/AdvReac Type Severity Reaction Status Date / Time No Known Allergies Allergy Verified 08/06/19 07:51 Home Medications: Home Medications Aspirin EC TAB* [Ecotrin EC TAB*] 325 mg PO DAILY PRN 09/22/19 [History Confirmed 09/22/19] PMH/Surg Hx/FS Hx/Imm Hx Endocrine/Hematology History: Denies: Hx Diabetes Cardiovascular History: Reports: Hx Hypertension - OFF MEDS FOR 2 YEARS Denies: Hx Hypercholesterolemia History: Denies: Hx Dialysis, Hx Renal Disease Sensory History: Reports: Hx Contacts or Glasses - glasses Denies: Hx Deafness, Hx Hearing Aid Opthamlomology History: Reports: Hx Contacts or Glasses - glasses Neurological History: Denies: Hx Headaches Psychiatric History: Denies: Hx Anxiety, Hx Depression - Cancer History Cancer Type, Location and Year: PROSTATE Hx Chemotherapy: No - Surgical History Surgery Procedure, Year, and Place: Ganglion vasectomy (pt is unsure of the full name), hyperhidrosis Hx Anesthesia Reactions: No Infectious Disease History: No Infectious Disease History: Denies: Traveled Outside the [place] in Last 30 Days - Family History Known Family History: Positive: Hypertension - Social History Alcohol Use: Occasionally Hx Substance Use: No Substance Use Type: Reports: None Hx Tobacco Use: No Smoking Status (MU): Never Smoked Tobacco Review of Systems Eyes: Negative - no change in vision Positive: Palpitations. Negative: Chest Pain - none right now Negative: Abdominal Pain Neurological: Other - Dizziness All Other Systems Reviewed And Are Negative: Yes Physical Exam - Summary Physical Exam Summary: Constitutional: Well-developed, Well-nourished, Alert. (-) Distressed Skin: Warm, Dry HENT: Normocephalic; Atraumatic Eyes: Conjunctiva normal Neck: Musculoskeletal ROM normal neck. (-) JVD, (-) Stridor, (-) Tracheal deviation Cardio: Rhythm regular, rate normal, Heart sounds normal; Intact distal pulses; The pedal pulses are 2+ and symmetric. Radial pulses are 2+ and symmetric. (-) Murmur Pulmonary/Chest wall: Effort normal. (-) Respiratory distress, (-) Wheezes, (-) Rales Abd: Soft, (-) tenderness, (-) Distension, (-) Guarding, (-) Rebound Musculoskeletal: (-) Edema Lymph: (-) Cervical adenopathy Neuro: Alert, Oriented x3 Psych: Mood and affect Normal Triage Information Reviewed: Yes Vital Signs On Initial Exam: Initial Vitals Temp Pulse Resp BP Pulse Ox 98.5 F 80 16 207/114 98 09/22/19 08:57 09/22/19 08:57 09/22/19 08:57 09/22/19 08:57 09/22/19 08:57 Vital Signs Reviewed: Yes - García Coma Scale Best Eye Response: 4 - Spontaneous Best Motor Response: 6 - Obeys Commands Best Verbal Response: 5 - Oriented Coma Scale Total: 15 Procedures - Sedation Patient Received Moderate/Deep Sedation with Procedure: No Diagnostics - Vital Signs Vital Signs Temp Pulse Resp BP Pulse Ox 09/22/19 08:57 98.5 F 80 16 207/114 98 - Laboratory Result Diagrams: 09/22/19 09:17 09/22/19 09:17 Lab Statement: Any lab studies that have been ordered have been reviewed, and results considered in the medical decision making process. - CT CT Brain CT Interpretation Completed By: Radiologist Summary of CT Findings: IMPRESSION: NO ACUTE INTRACRANIAL PATHOLOGY. has reviewed this report. - EKG 0917 Cardiac Rate: NL EKG Rhythm: Sinus Rhythm Summary of EKG Findings: EKG at 0917 reveal sinus rhythm at a rate of 75 bpm. RBBB. No ischemic changes. has reviewed and interpreted this EKG. Disposition - Course Course Of Treatment: 64 year old M presenting to [facility] accompanied by EMS complains of palpitations and dizziness since this morning 09/19/2019. EMS states a 12 lead EKG reported negative STEMI and that his BP was in the 200s. Physical exam findings: nml. Bloodwork results with no significant abnormalities except for L Hgb, L Hct, H Glucose. EKG at 0917 reveal sinus rhythm at a rate of [address] bpm. RBBB. No ischemic changes. CT Brain showed: NO ACUTE INTRACRANIAL PATHOLOGY per radiologist. In the ED course, the patient was given Ns, 20 mg hydralazine, 5 mg Labetalol IV, 25 mg Meclizine. We discussed patient care with at 1449 who recommended admission. The patient will be admitted to the hospitalist. The patient is agreeable with this plan. - Diagnoses Provider Diagnoses: Hypertensive urgency - Physician Notifications Discussed Care Of Patient With: Scar Mari - admit Time Discussed With Above Provider: 14:49 Instructed by Provider To: Admit As Inpatient Discharge ED - Sign-Out/Discharge Documenting (check all that apply): Patient Departure - admit - Discharge Plan Condition: Stable Disposition: ADMITTED TO [facility] - Billing Disposition and Condition Condition: STABLE Disposition: Admitted to [facility] - Attestation Statements Document Initiated by Solangee: Yes Documenting Scribe: Gee Neves Provider For Whom Sharda is Documenting (Include Credential): Skyler Fisher DO Scribe Attestation: Gee Guardado scribed for Skyler Fisher DO on 09/22/19 at 1743. Scribe Documentation Reviewed: Yes Provider Attestation: The documentation as recorded by the Gee carrizales accurately reflects the service I personally performed and the decisions made by , Skyler Fisher DO Status of Scribe Document: Viewed
[2019-09-22 09:27] LABS: ABS Basophils 0.1 10^3/ul (0-0.2); ABS Eosinophils 0.1 10^3/ul (0-0.6); ABS Lymphocytes 1.1 10^3/ul (1.0-4.8); ABS Monocytes 0.5 10^3/ul (0-0.8); ABS Neutrophils 3.7 10^3/ul (1.5-7.7); Hematocrit 40 % (42-52); Hemoglobin 13.4 g/dL (14.0-18.0); Lymphocyte % 19.7 %; Mean Corpuscular HGB Conc 34 g/dL (31-36); Mean Corpuscular Hemoglobin 30 pg (27-31); Mean Corpuscular Volume 89 fL (80-94); Mean Platelet Volume 7.7 fL (7.4-10.4); Nucleated Red Blood Cells % 0.1; Platelet Count 341 10^3/uL (150-450); Red Blood Count 4.43 10^6 /uL (4.18-5.48); Red Cell Distribution Width 14 % (10-15); White Blood Count 5.4 10^3/uL (3.5-10.8)
[2019-09-22 09:44] LABS: Albumin 4.3 g/dL (3.2-5.2); Albumin/Globulin Ratio 1.5 (1-3); BUN/Creatinine Ratio 11.8 (8-20); Calcium 9.5 mg/dL (8.6-10.3); EGFR African American 88.7 (>60); EGFR Non-African American 73.3 (>60); Globulin 2.8 g/dL (2-4); Potassium 3.8 mmol/L (3.5-5.0); Total Bilirubin 0.4 mg/dL (0.2-1.0); Total Protein 7.1 g/dL (6.4-8.9)
[2019-09-22 09:45] LABS: Troponin I 0.01 ng/mL (<0.03)
[2019-09-22 10:27] LABS: TSH (Thyroid Stimulating Horm) 1.44 mcIU/mL (0.34-5.60)
[2019-09-22] MEDS ORDERED: Labetalol IV* 5 MG/ML 20 ML VIAL IV PUSH ONE (11:42)
[2019-09-22] MEDS ORDERED: Meclizine TAB* 12.5 MG PO ONE (12:31)
[2019-09-22] MEDS ORDERED: Lisinopril TAB* 10 MG PO ONE (14:57)
[2019-09-22] MEDS ORDERED: amLODIPine TAB* 5 MG PO ONE ×2 (14:58→18:06)
[2019-09-22] MEDS ORDERED: Hydrochlorothiazide TAB* 25 MG PO SCH (15:00)
[2019-09-22] MEDS ORDERED: Lisinopril TAB* 10 MG PO SCH (15:06)
[2019-09-22] MEDS ORDERED: Lisinopril TAB* 10 MG ONE (15:07)
--- NOTE | 2019-09-22 15:57 | ADMNOTE ---
Subjective Date of Service: 09/22/19 Interval History: ADMISSION HISTORY AND PHYSICAL EXAM: Allergies Allergy/AdvReac Type Severity Reaction Status Date / Time No Known Allergies Allergy Verified 08/06/19 07:51 Home Medications Medication Instructions Recorded Confirmed Type Lisinopril/Hydrochlorothiazide 1 each PO DAILY 30 Days #30 tablet 08/07/1909/22 Rx [Lisinopril-Hctz 10-12.5 mg Tab] Aspirin EC TAB* [Ecotrin EC TAB*] 325 mg PO DAILY PRN 09/22/19 09/22/19 History HPI: The patient was in his usual state of health until this AM when he took his BP at home and it was high. He did not take his BP meds this AM, did take them yesterday. He could not say why he has not taken his meds this AM. Family History: Findings - HTN. Social History: Findings - Quit smoking 2005. No alcohol abuse. Retired. Lives with his sister who is his SDM. Never , no children. Past Medical History: Findings - Spine surgery for hyperhidrosis at [facility] 1996. HTN. Bladder and prostate cancer, s/p TURB. Review of Systems - Measurements Intake and Output: Intake and Output Last 24 Hours 09/20/19 09/21/19 09/22/19 09/23/19 06:59 06:59 06:59 06:59 Weight 180 lb - Review of Systems Constitutional Symptoms: Positive: Weight Loss Dermatology: Positive: Normal HEENT: Positive: Normal Eyes: Positive: Normal Thyroid: Positive: Normal Pulmonary: Positive: Normal Cardiology: Positive: Other - HTN Gastroenterology: Positive: Normal Genital - Urinary: Positive: Normal Objective Active Medications: Hydrochlorothiazide (Hydrodiuril Tab*) 25 mg PO DAILY [facility] Last Admin: 09/22/19 15:10 Dose: Not Given Lisinopril (Prinivil Tab*) 20 mg PO DAILY [facility] Last Admin: 09/22/19 15:10 Dose: Not Given Vital Signs - 8 hr 09/22/19 09/22/19 09/22/19 08:56 08:57 09:26 Temperature 98.5 F Pulse Rate 74 80 74 Respiratory 15 16 15 Rate Blood Pressure 207/114 207/114 170/106 (mmHg) O2 Sat by Pulse 99 98 100 Oximetry 09/22/19 09/22/19 09/22/19 09:56 10:00 10:16 Temperature Pulse Rate 67 74 Respiratory 20 17 16 Rate Blood Pressure 194/116 169/97 (mmHg) O2 Sat by Pulse 100 100 Oximetry 09/22/19 09/22/19 09/22/19 10:26 10:56 11:00 Temperature Pulse Rate 76 78 Respiratory 17 18 21 Rate Blood Pressure 195/110 183/102 (mmHg) O2 Sat by Pulse 100 100 Oximetry 09/22/19 09/22/19 09/22/19 11:29 11:50 12:00 Temperature Pulse Rate Respiratory 12 21 Rate Blood Pressure 202/107 187/105 (mmHg) O2 Sat by Pulse Oximetry 09/22/19 09/22/19 09/22/19 12:05 12:20 12:35 Temperature Pulse Rate Respiratory 16 15 Rate Blood Pressure 158/92 152/96 189/108 (mmHg) O2 Sat by Pulse Oximetry 09/22/19 09/22/19 09/22/19 12:50 13:00 13:05 Temperature Pulse Rate Respiratory 15 18 16 Rate Blood Pressure 156/93 160/101 (mmHg) O2 Sat by Pulse Oximetry 09/22/19 09/22/19 09/22/19 13:20 13:24 14:19 Temperature Pulse Rate 79 72 Respiratory 20 18 17 Rate Blood Pressure 165/98 179/108 171/97 (mmHg) O2 Sat by Pulse 99 100 Oximetry 09/22/19 09/22/19 09/22/19 14:20 14:35 14:40 Temperature Pulse Rate 74 71 Respiratory 15 17 Rate Blood Pressure 175/93 191/103 200/120 (mmHg) O2 Sat by Pulse 100 95 Oximetry 09/22/19 09/22/19 09/22/19 14:50 15:05 15:29 Temperature Pulse Rate 78 85 Respiratory Rate Blood Pressure 172/89 171/102 (mmHg) O2 Sat by Pulse 100 100 Oximetry 09/22/19 15:36 Temperature Pulse Rate Respiratory Rate Blood Pressure 158/88 (mmHg) O2 Sat by Pulse Oximetry Oxygen Devices in Use Now: None Appearance: Alert, partly up on ED stretcher. Somewhat anxious, otherwise looks comfortable. Eyes: No Scleral Icterus Ears/Nose/Mouth/Throat: Clear Oropharnyx, Mucous Membranes Moist Neck: NL Appearance and Movements; NL JVP, No Thyroid Enlargement, Masses Respiratory: Symmetrical Chest Expansion and Respiratory Effort, Clear to Auscultation, Clear to Percussion Cardiovascular: NL Sounds; No Murmurs; No JVD, RRR, No Edema, - Abdominal: NL Sounds; No Tenderness; No Distention, No Hepatosplenomegaly, - Extremities: No Edema, No Clubbing, Cyanosis, - Skin: No Rash or Ulcers, No Nodules or Sclerosis, - Neurological: Alert and Oriented x 3, NL Sensation Result Diagrams: 09/22/19 09:17 09/22/19 09:17 Assess/Plan/Problems-Billing Assessment: - Patient Problems (1) Hypertension Current Visit: No Status: Acute Code(s): I10 - ESSENTIAL (PRIMARY) HYPERTENSION SNOMED Code(s): 78199069 Comment: Given IV hydralazine and IV labetalol in ED, then lisinopril 10 mg po and amlodipine 5 mg po. Lisinopril 10 mg, amlodipine 5 mg, thiazide 25 mg ordered daily. Pt does not use a 7-day pill container and likely misses many doses. (2) Bladder cancer Current Visit: No Status: Acute Comment: - s/p cystoscopy and transurethral bladder tumor resection 08/06/[address] Ho. Pt missed his appt with Dr. Mayberry to discuss treatment (3) Prostate cancer Current Visit: No Status: Acute Code(s): C61 - MALIGNANT NEOPLASM OF PROSTATE SNOMED Code(s): 772057262 Comment: Pt missed his appt with Dr. Mayberry to discuss treatment (4) Depression Current Visit: Yes Status: Acute Code(s): F32.9 - MAJOR DEPRESSIVE DISORDER , SINGLE EPISODE, UNSPECIFIED SNOMED Code(s): 42145161 Comment: Pt has anorexia, weight loss, insomnia, depression. Start mirtazapine 15 mg hs 2/. (5) Urinary frequency Current Visit: Yes Status: Acute Code(s): R35.0 - FREQUENCY OF MICTURITION SNOMED Code(s): 065119234 Comment: On day of discharge, PVR was 127 ml.
[2019-09-22] MEDS ORDERED: Mirtazapine TAB* 15 MG PO PRN (16:00)
[2019-09-22] MEDS ORDERED: Metoprolol Tartrate IV* 1 MG/ML 5 ML VIAL IV PRN (18:05)
[2019-09-23] MEDS ORDERED: amLODIPine TAB* 5 MG PO SCH ×2 (09:00)
[2019-09-23] MEDS ORDERED: Lisinopril TAB* 10 MG PO SCH (09:00)
[2019-09-23] MEDS ORDERED: Hydrochlorothiazide TAB* 25 MG PO SCH (09:00)
[2019-09-23 12:07] VITALS: BP 141/80
--- NOTE | 2019-09-23 13:44 | DS ---
CC: Dr. Ho; Dr. Chong; Dr. Vieira DISCHARGE SUMMARY: DATE OF ADMISSION: DATE OF DISCHARGE: 09/23/19 HISTORY OF PRESENT ILLNESS/HOSPITAL COURSE: This 64-year-old man presented complaining of his blood pressure taken at home was high. He had a little bit of dizziness. He had not taken his meds the morning of admission. He could not explain why he had not taken his meds that day. Rest of the history is detailed in dictated admission note. The patient was given some intravenous medication in the ER, but in the evening he was given oral amlodipine and lisinopril and he was continued on amlodipine, lisinopril, and hydrochlorothiazide. The following morning, about 2 hours after his morning dose, his blood pressure was 140/80. It had been good all night. The patient felt the mirtazapine helped him sleep, but it hopefully will help with his depression in time, perhaps it will help with his appetite as well. His postvoid residual is 127 mL. It might not have been done immediately after he voided. He said he had quite a bit of trouble with nocturia and urinary frequency during the day, although he tried to limit his fluids in the evening. I told him to make an appointment with Dr. Ho which he had missed to follow up on his prostate and bladder cancer treatment. I also advised him to get a 7-day pill container to make sure he has close to perfect compliance with his blood pressure medications as possible. FINAL DIAGNOSES: 1. Hypertension. 2. Bladder cancer. 3. Prostate cancer. 4. Depression. CONDITION ON DISCHARGE: Improved. DISPOSITION ON DISCHARGE: Discharge home. [id number]/[facility] #: [id number] MARIA VICTORIA
== END 2019-09-23 13:40 | disposition home or self-care (01) ==
LOC: ED 08:55 → MEDTELE 15:26
PROVIDERS: ADMIT Internal Medicine; ATTEND Internal Medicine
DX: I10 Essential (primary) hypertension (principal); R42 Dizziness and giddiness; R00.2 Palpitations; C61 Malignant neoplasm of prostate; C67.9 Malignant neoplasm of bladder, unspecified; F32.9 Major depressive disorder, single episode, unspecified; F41.9 Anxiety disorder, unspecified; Z87.891 Personal history of nicotine dependence; R35.0 Frequency of micturition; Z79.899 Other long term (current) drug therapy
CPT/HCPCS: 36415; 70450; 80053; 84443; 84484; 85025; 93005; 96374; 96375; 99285; A9270-GY; G0378; J0360

== ENCOUNTER 2019-10-12 14:55 | Inpatient (IN) | payer OTHER ==
[2019-10-12] MEDS ORDERED: NS 0.9% 1000 ML** 1,000 ML IV ONE ×2 (15:07→18:02)
[2019-10-12] MEDS ORDERED: Lorazepam PYXIS KEY PRN (15:11)
[2019-10-12] MEDS ORDERED: LORazepam INJ* 2 MG/ML 1 ML VIAL IV PUSH ONE (15:11)
[2019-10-12] MEDS ORDERED: Lorazepam PYXIS KEY ONE (15:15)
--- NOTE | 2019-10-12 15:27 | ED ---
Complex/Multi-Sys Presentation - HPI Summary HPI Summary: Patient is a 64 y/o M presenting to [facility] via EMS for SI, anxiety, hyperventilation, tachycardia, chest pain, SOB and GUTIÉRREZ. It is reported that the patient was recently diagnosed with bladder and prostate cancer. EMS reports end -tidal less than 10, respiration rate of 30s-40s, HR in 100s BPM, non- diagnostic EKG. Family called EMS. It is noted that the patient made suicidal statements to family. He states that "I can't live like this" and "There's just so much going on". Patient reports that he has been experiencing SI intermittently but denies plan of suicide. He currently has SI. Sleep disturbance and decreased appetite noted. NKDA reported. Home medications and allergies are reviewed. Home Medications Medication Instructions Recorded Confirmed Type Hydrochlorothiazide TAB* 25 mg PO DAILY #30 tab 09/23/19 10/12/19 Rx [Hydrodiuril TAB*] Lisinopril TAB* [Prinivil TAB 10 10 mg PO DAILY #30 tab 09/23/19 10/12/19 Rx MG*] Mirtazapine TAB* [Remeron TAB*] 15 mg PO BEDTIME PRN #30 tab 09/23/19 10/12/19 Rx amLODIPine TAB* [Norvasc 5 mg TAB*] 10 mg PO DAILY #30 tab 09/23/19 10/12/19 Rx - History Of Current Complaint Hx Obtained From: Patient Onset/Duration: Still Present Timing: Intermittent, Lasting: Location: Pain At: - chest, head Associated Signs And Symptoms: Positive: Headache, SOB, Chest Pain, Other - positive - SI, anxiety, hyperventilation, tachycardia - Allergies/Home Medications Allergies/Adverse Reactions: Allergies Allergy/AdvReac Type Severity Reaction Status Date / Time No Known Allergies Allergy Verified 08/06/19 07:51 Home Medications: Home Medications Hydrochlorothiazide TAB* [Hydrodiuril TAB*] 25 mg PO DAILY #30 tab 09/23/19 [Rx Confirmed 10/12/19] Lisinopril TAB* [Prinivil TAB 10 MG*] 10 mg PO DAILY #30 tab 09/23/19 [Rx Confirmed 10/12/19] Mirtazapine TAB* [Remeron TAB*] 15 mg PO BEDTIME PRN #30 tab 02/06/20 [Rx Confirmed 10/12/19] amLODIPine TAB* [Norvasc 5 mg TAB*] 10 mg PO DAILY #30 tab 09/23/19 [Rx Confirmed 10/12/19] PMH/Surg Hx/FS Hx/Imm Hx Endocrine/Hematology History: Denies: Hx Diabetes Cardiovascular History: Reports: Hx Hypertension - OFF MEDS FOR 2 YEARS Denies: Hx Hypercholesterolemia History: Denies: Hx Dialysis, Hx Renal Disease Sensory History: Reports: Hx Contacts or Glasses - glasses Denies: Hx Deafness, Hx Hearing Aid Opthamlomology History: Reports: Hx Contacts or Glasses - glasses Neurological History: Denies: Hx Headaches Psychiatric History: Denies: Hx Anxiety, Hx Depression - Cancer History Cancer Type, Location and Year: PROSTATE Hx Chemotherapy: No - Surgical History Surgery Procedure, Year, and Place: Ganglion vasectomy (pt is unsure of the full name), hyperhidrosis Hx Anesthesia Reactions: No Infectious Disease History: No Infectious Disease History: Denies: Traveled Outside the [place] in Last 30 Days - Family History Known Family History: Positive: Hypertension - Social History Alcohol Use: Occasionally Hx Substance Use: No Substance Use Type: Reports: None Hx Tobacco Use: No Smoking Status (MU): Never Smoked Tobacco Review of Systems Positive: Chest Pain Respiratory: Other - positive - hyperventilation Positive: Shortness Of Breath Positive: Headache Psychological: Other - positive - SI Positive: Anxious All Other Systems Reviewed And Are Negative: Yes Physical Exam - Summary Physical Exam Summary: Constitutional: Well-developed, Well-nourished, Alert. Hyperventilating, Anxious. Skin: Warm, Dry HENT: Normocephalic; Atraumatic Eyes: Conjunctiva normal Neck: Musculoskeletal ROM normal neck. (-) JVD, (-) Stridor, (-) Tracheal deviation Cardio: Rhythm regular, tachycardic, Heart sounds normal; Intact distal pulses; The pedal pulses are 2+ and symmetric. Radial pulses are 2+ and symmetric. (-) Murmur Pulmonary/Chest wall: Hyperventilating, increased respiration rate. (-) Respiratory distress, (-) Wheezes, (-) Rales Abd: Soft, (-) tenderness, (-) Distension, (-) Guarding, (-) Rebound Musculoskeletal: (-) Edema Lymph: (-) Cervical adenopathy Neuro: Alert, Oriented x3 Psych: Anxious, positive SI Triage Information Reviewed: Yes Vital Signs On Initial Exam: Initial Vitals Temp Pulse Resp BP Pulse Ox 97.7 F 106 38 242/120 100 10/12/19 14:58 10/12/19 14:58 10/12/19 14:58 10/12/19 14:58 10/12/19 14:58 Vital Signs Reviewed: Yes Procedures - Sedation Patient Received Moderate/Deep Sedation with Procedure: No Diagnostics - Vital Signs Vital Signs Temp Pulse Resp BP Pulse Ox 10/12/19 15:16 28 10/12/19 14:58 97.7 F 106 38 242/120 100 - Laboratory Result Diagrams: 10/12/19 15:30 10/15/19 07:39 Lab Statement: Any lab studies that have been ordered have been reviewed, and results considered in the medical decision making process. - Radiology CXR Radiology Interpretation Completed By: Radiologist Summary of Radiographic Findings: CXR IMPRESSION: #. No acute pulmonary or cardiac process evident. THIS REPORT WAS REVIEWED BY ED PHYSICIAN. - EKG 1518 Cardiac Rate: NL - rate of 94 BPM EKG Rhythm: Sinus Rhythm Summary of EKG Findings: EKG showed sinus rhythm with rate of 94 BPM, RBBB, baseline wander noted. No ischemic changes. ED physician has reviewed and interpreted this EKG. Re-Evaluation - Re-Evaluation 1st re-eval Re-Evaluation Time: 19:25 Change: Unchanged Comment: As per Dr. Malik, pt will be admitted to [facility] with dx of depressive disorder. Complex Multi-Symp Course/Dx Course Of Treatment: Patient is a 64 y/o M presenting to [facility] via EMS for SI, anxiety, hyperventilation, tachycardia, chest pain, SOB and GUTIÉRREZ. It is reported that the patient was recently diagnosed with bladder and prostate cancer. EMS reports end-tidal less than 10, respiration rate of 30s-40s, HR in 100s BPM, non -diagnostic EKG. Family called EMS. It is noted that the patient made suicidal statements to family. He states that "I can't live like this" and "There's just so much going on". Patient reports that he has been experiencing SI intermittently but denies plan of suicide. He currently has SI. Sleep disturbance and decreased appetite noted. NKDA reported. On physical exam, patient is noted to be anxious, hyperventilating, and tachycardic. SI is reported. Lungs are clear but patient with increased respiration rate. CXR IMPRESSION: #. No acute pulmonary or cardiac process evident. EKG showed sinus rhythm with rate of 94 BPM, RBBB, baseline wander, no ischemic changes. Bloodwork was obtained and within normal limits with exception of Hgb 13, Hct 39 , potassium 3.2, carbon dioxide 13, glucose 110. UA showed 1+ ketones, 3+ blood , trace WBC and 3+ RBC. Tox screen was negative. Patient received Klor Con Er Tab 40 meq PO, Ativan 1 mg IV, apresoline 15 mg IV, fluids. Patient was medically cleared for [facility]. Patient is signed out to Dr. Talamantes at 1900 10/12/19 shift change pending MH disposition. - Diagnoses Provider Diagnoses: Depressive disorder, Hypertensive crisis Discharge ED - Sign-Out/Discharge Documenting (check all that apply): Sign-Out Patient Signing out patient TO: Traci Talamantes - Discharge Plan Condition: Stable Disposition: PSYCHIATRIC FACILITY-[facility] - Billing Disposition and Condition Condition: STABLE Disposition: Psychiatric Facility [facility] - Attestation Statements Document Initiated by Scribe: Yes Documenting Scribe: AKSHAT HUYNH Provider For Whom Scribe is Documenting (Include Credential): MELISSA MEJIA DO Scribe Attestation: IAKSHAT scribed for MELISSA MEJIA DO on 10/20/19 at 0717. Scribe Documentation Reviewed: Yes Provider Attestation: The documentation as recorded by the AKSHAT carrizales accurately reflects the service I personally performed and the decisions made by me, MELISSA MEJIA DO Status of Scribe Document: Viewed
[2019-10-12 15:38] LABS: ABS Lymphocytes 1.6 10^3/ul (1.0-4.8); ABS Monocytes 0.4 10^3/ul (0-0.8); ABS Neutrophils 4.8 10^3/ul (1.5-7.7); Eosinophil % 0.7 %; Hematocrit 39 % (42-52); Lymphocyte % 23.1 %; Mean Corpuscular HGB Conc 34 g/dL (31-36); Mean Corpuscular Hemoglobin 30 pg (27-31); Mean Corpuscular Volume 89 fL (80-94); Mean Platelet Volume 7.8 fL (7.4-10.4); Nucleated Red Blood Cells % 0.1; Platelet Count 287 10^3/uL (150-450); Red Blood Count 4.34 10^6 /uL (4.18-5.48); Red Cell Distribution Width 14 % (10-15); White Blood Count 6.9 10^3/uL (3.5-10.8)
[2019-10-12 15:39] LABS: Urine Appearance Clear; Urine Bilirubin Negative (Negative); Urine Blood 3+ (Negative); Urine Color Straw; Urine Glucose Negative (Negative); Urine Ketones 1+ (Negative); Urine Nitrite Negative (Negative); Urine Protein Negative (Negative); Urine Specific Gravity 1.005 (1.010-1.030); Urine Urobilinogen Negative (Negative)
[2019-10-12 15:44] LABS: Urine Bacteria Absent (Absent); Urine Red Blood Cell 3+(>10/hpf) (Absent); Urine White Blood Cell Trace(0-5/hpf) (Absent)
[2019-10-12 16:03] LABS: Urine Benzodiazepine Screen None Detected (None Detect); Urine Opiates Screen None Detected (None Detect)
[2019-10-12 16:04] LABS: ALT 21 U/L (7-52); AST 19 U/L (13-39); Albumin 4.3 g/dL (3.2-5.2); Albumin/Globulin Ratio 1.5 (1-3); Alkaline Phosphatase 72 U/L (34-104); Anion Gap 13 mmol/L (2-11); BUN/Creatinine Ratio 10.2 (8-20); Blood Urea Nitrogen 10 mg/dL (6-24); CO2 Carbon Dioxide 19 mmol/L (22-32); Calcium 9.4 mg/dL (8.6-10.3); Chloride 105 mmol/L (101-111); EGFR African American 92.9 (>60); EGFR Non-African American 76.8 (>60); Globulin 2.8 g/dL (2-4); Glucose 110 mg/dL (70-100); Potassium 3.2 mmol/L (3.5-5.0); Sodium 137 mmol/L (135-145); Total Protein 7.1 g/dL (6.4-8.9)
[2019-10-12 16:16] LABS: Alcohol < 10 mg/dL (<10); Salicylate < 2.50 mg/dL (<30)
[2019-10-12 16:20] LABS: Acetaminophen < 15 mcg/mL
[2019-10-12 16:46] LABS: TSH (Thyroid Stimulating Horm) 1.71 mcIU/mL (0.34-5.60)
[2019-10-12] MEDS ORDERED: Potassium Chlor TAB* 20 MEQ TAB.ER PO ONE (16:54)
[2019-10-12] MEDS ORDERED: hydrALAZINE IV* 20 MG/ML VIAL IV SLOW PU ONE (18:02)
--- NOTE | 2019-10-12 19:16 | ED ---
Progress - Progress Note Progress Note: Pt is a signout from Dr. Fisher at 1900 on 10/12/19 pending disposition. Re-Evaluation - Re-Evaluation 1st re-eval Re-Evaluation Time: 19:25 Change: Unchanged Comment: As per Dr. Malik, pt will be admitted to [facility] with dx of depressive disorder. Course/Dx - Diagnoses Provider Diagnoses: Depressive disorder, Hypertensive crisis Discharge ED - Sign-Out/Discharge Documenting (check all that apply): Patient Departure, Receiving Sign-Out Receiving patient FROM: Martir Fisher - Discharge Plan Condition: Stable Disposition: PSYCHIATRIC FACILITY-[facility] Referrals: [facility] [Outside] - Billing Disposition and Condition Condition: STABLE Disposition: Psychiatric Facility [facility] - Attestation Statements Document Initiated by Scribe: Yes Documenting Scribe: Kristin Hollins Provider For Whom Scribe is Documenting (Include Credential): Traci Talamantes MD. Scribe Attestation: IKristin, scribed for Traci Talamantes MD. on 10/12/19 at 2026. Scribe Documentation Reviewed: Yes Provider Attestation: The documentation as recorded by the scribeKristin accurately reflects the service I personally performed and the decisions made by me, Traci Talamantes MD. Status of Scribe Document: Viewed
[2019-10-12] MEDS ORDERED: Acetaminophen TAB* 325 MG PO PRN (21:28)
[2019-10-12] MEDS ORDERED: Al Hydrox/Mg Hydrox/Simet LIQ* 30 ML UDC PO PRN (21:28)
[2019-10-12] MEDS ORDERED: Mirtazapine TAB* 15 MG PO SCH (22:00)
[2019-10-13] MEDS: Lisinopril TAB* 10 MG PO SCH (10:35)
[2019-10-13] MEDS: Hydrochlorothiazide TAB* 25 MG PO SCH (10:35)
[2019-10-13] MEDS: amLODIPine TAB* 5 MG PO SCH (10:35)
[2019-10-13] MEDS: Vitamin THERAPEUTIC TAB PO SCH (10:35)
[2019-10-13] MEDS ORDERED: Ibuprofen TAB* 600 MG PO PRN (14:37)
--- NOTE | 2019-10-13 16:49 | HP ---
PSYCHIATRIC HISTORY AND PHYSICAL: DATE OF ADMISSION: 10/12/19 JUSTIFICATION FOR ADMISSION: The patient is in need of 24-hour supervision and care secondary to suicidal ideations. CHIEF COMPLAINT: "I have been developing insomnia, it is getting worse." HISTORY OF PRESENT ILLNESS: The patient is a 64-year-old single, never , male with no previous psychiatric history who arrived at the hospital complaining of having an anxiety attack as well as feelings of suicide without plan. He later told the crisis sack cleaning hand that if he had access to a Glock that he would shoot himself. The patient was tearful, hypertensive and could not contract for safety and was therefore admitted to the hospital on a voluntary status. When I meet with him he indicates that his insomnia has been progressive for approximately the past 2 months. In July 2019, he had tumors resected from his bladder by local urologist Dr. Ho. The patient is quoted as saying "I found it traumatizing. There were catheters in me and blood everywhere when I woke up on the table. They had to put me back under in order to cauterize the wounds inside me. I just do not want anymore of that." The concern apparently is that he has also been identified as having prostate cancer. Urology recommended a course of treatment that the patient claims he has no energy or desire for given the difficulties he experienced with his first procedure. He has been experiencing severe urinary frequency which has been interrupting his sleep. Recently, the patient was hospitalized for hypertensive crisis on the hospitalist service in early September and at that time they identified depression and insomnia as problems. The patient was started on mirtazapine; however, he states that it was not working for sleep and that it left him feeling groggy and sedated in the morning, therefore he only took it intermittently and has essentially stopped taking it at this point. The patient has experienced suicidal ideations for the past few weeks, feeling increasingly desperate about his inability to sleep. He also notes that when his blood pressure is high, he experiences severe ringing in his ears. I asked him about other stressors in his social life, which he denied. Symptomatically, he endorses insomnia, anhedonia, lethargy, poor concentration, decreased appetite with 15-pound weight loss and suicidal ideations. He did deny any feelings of guilt or symptoms of psychomotor retardation. PSYCHIATRIC HISTORY: The patient denies any history of psychiatric hospitalization or any prior therapy, psychiatric medications or psychiatric interventions. He denies any history of suicide attempts. He has no history of violence or homicidality towards others. He has no history of traumatic brain injuries. SUBSTANCE ABUSE HISTORY: Negative for alcohol or illicit drugs. He is a previous cigarette smoker having quit in approximately 2005. PAST MEDICAL HISTORY: Significant for spine surgery for hyperhidrosis at the [facility] in 1996. He has hypertension; bladder and prostate cancer, status post TURB. CURRENT MEDICATIONS: Include: 1. Lisinopril 10 mg daily. 2. Hydrochlorothiazide 25 mg daily. 3. Amlodipine 10 mg daily. 4. Mirtazapine 15 mg p.o. q.h.s. ALLERGIES: He has no known drug allergies. FAMILY HISTORY: Negative for suicides in the family or family history of mental illness. SOCIAL HISTORY: The patient was born in [place], raised in [place] to an intact family where he is the middle child of 7 total children. Interestingly, all of his siblings are females; currently he lives in [place] with his sister Nehal who has 2 adopted children at the age of 12. The patient himself has never had children and has never been . 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 He has no history of service. He was brought up [facility] and occasionally goes to [employer] [facility]. He has no history of legal problems. His hobbies include biking and playing percussion in the band. REVIEW OF SYSTEMS: The patient is endorsing tinnitus as well as fatigue. He denies current headache or double vision. He denies sore throat, cough, chest pain, difficulty breathing. Denies abdominal pain, nausea, vomiting, diarrhea, or constipation. Denies difficulty ambulating, enlarged lymph nodes, fevers or rashes. PHYSICAL EXAMINATION VITAL SIGNS: Blood pressure 144/83, heart rate 77, respiratory rate 16, temperature 99.0 degrees Fahrenheit, oxygen saturation is 100% on room air. HEENT: Head is normocephalic, atraumatic. NECK: Supple. CHEST: Clear to auscultation bilaterally. CARDIAC: Exam reveals normal heart sounds. ABDOMEN: Soft and nontender. MUSCULOSKELETAL: Exam reveals no sign of edema. NEUROLOGIC: He is grossly intact with no focal deficits. SKIN: Warm and dry. DIAGNOSTIC STUDIES/LAB DATA: CBC revealed mild anemia with hemoglobin of 13.0 , hematocrit of 39. Complete metabolic panel, glucose slightly elevated at 110. Urinalysis is significant for 3+ blood, urine drug screen is negative for all substances. His serum alcohol was 0. MENTAL STATUS EXAM: The patient is middle-aged male who is dressed in a nieves jogging suit. He is calm, cooperative, easy to establish a rapport with. Speech has a normal rate, tone and volume. Mood is depressed with a somewhat constricted affect. Thought process is linear and goal- directed. Thought content is significant for his desire to be able to sleep better. He is currently denying suicidal or homicidal ideations. He denies auditory or visual hallucinations. Insight and judgment are fair given his willingness to seek voluntary treatment. Cognitively, he is awake and alert with what would appear to be an average intellect. DIAGNOSES: [place] I: Major depressive disorder, single episode, moderate. [place] II: Deferred. IMPRESSION: The patient is a 64-year-old single, never , male with no psychiatric history who took himself to the hospital seeking voluntary hospitalization for several months of worsening insomnia punctuated by several weeks of suicidal ideations. It seems that his biggest issue is lack of sleep which is very much complicated by his prostate issue. I am hoping that if we can get him decent night sleep with some type of soporific that perhaps he would have a more optimistic view of his prostate issues and that he would seek perhaps a second opinion for ongoing treatment. He is agreeable with med management as well as attending groups and other milieu activities here on the unit. PLAN: The patient is admitted to the adult behavioral health unit where he is placed on q.15 minute checks for his own safety. I will discontinue mirtazapine given the fact that he is not tolerating it well and replace it with a trial of paroxetine 20 mg p.o. q.h.s. I will augment this with Ambien 5 mg p.o. q.h.s. in the hopes that a return to restless sleep will change his spirits. He will need outpatient mental health as well as a referral to a primary care provider which it sounds like he does not currently have. I would encourage the patient to receive a second opinion in terms of his prostate status and perhaps social work can assist him with this prior to discharge. While he is here, certainly encourage to avail himself of all milieu activities including individual and group psychotherapies. [id number]/[facility] #: [id number] MARIA VICTORIA
[2019-10-13] MEDS: Zolpidem TAB* 5 MG PO SCH (21:01)
[2019-10-13] MEDS: PARoxetine HCL TAB* 20 MG PO SCH (21:01)
[2019-10-14] MEDS: amLODIPine TAB* 5 MG PO SCH (07:16)
[2019-10-14] MEDS: Hydrochlorothiazide TAB* 25 MG PO SCH (07:16)
[2019-10-14] MEDS: Lisinopril TAB* 10 MG PO SCH ×3 (07:16→20:40)
[2019-10-14 07:21] LABS: HDL Cholesterol 69.6 mg/dL
[2019-10-14] MEDS: Vitamin THERAPEUTIC TAB PO SCH (07:42)
[2019-10-14] MEDS: Labetalol TAB* 100 MG PO SCH ×2 (11:14→20:43)
--- NOTE | 2019-10-14 12:13 | PN ---
Subjective - Subjective Date of Service: 10/14/19 Service Type: 18618 Hosp care 15 min low complexity Subjective: Doc is doing "OK" today. His sleep was interrupted last night by urinary frequency and routine staff checks. He has hypertensive urgency this morning and was seen promptly by the Hospitalist service, who added labetolol to his antihypertensive regimen. Doc hasn't had suicidal thoughts so far today but is worried about being discharged too soon. He is tolerating paroxetine and zolpidem well thus far. Objective - General Observations Appearance: Neat, Well Groomed Appears Stated Age: Yes Stature: WNL Posture: WNL Eye Contact: Average Behavior/Activity: WNL - Interaction Observations Attitude Towards Examiner: Cooperative Stated Mood: Anxious Affect: Full Speech Pattern/Tone: Clear, Appropriate Thought Process: Coherent Perception: WNL Thought Content: WNL Hallucination Type: None Delusion Type: None - Cognitive Function Orientation: A&O x 4 Level of Consciousness: Awake Cognition: WNL Estimated Intelligence: Normal Insight: WNL Judgment Within Normal Limits: Yes - Medication Compliance Cooperative with Inpatient Medication Regimen: Yes - Group Participation Participates in Group Activities: Yes Assessment - Assessment Merits Inpatient Hospitalization: For Immediate Safety, For Stabilization Inpatient DSM-V Dx: F32.1 Clinical Impression: 64 y.o. single, AA male with no previous psychiatric illness who has a medical history of poorly controlled HTN, bladder and prostate cancers, arrives by ambulance seeking voluntary hospitalization for worsening insomnia, depression and passive SI. BSU: Problem List - Patient Problems (1) Major depressive disorder, single episode, moderate Current Visit: Yes Status: Acute Priority: High Plan - Plan Treatment Plan: Name: DOC BARBOZA Birthdate: 1955 [id number] The patient has been taken off mirtazapine and placed on paroxetine 20mg PO qhs and zolpidem 5mg PO qhs. Appreciate Hospitalist input for HTN. The patient would benefit from further inpatient care to reduce the risk of resumption of SI. Continued Medication Management: Start Medication Medications: Current Medications Acetaminophen (Tylenol Tab*) 650 mg PO Q4H PRN PRN Reason: PAIN or TEMP > 101 F Al Hydrox/Mg Hydrox/Simethicone (Maalox Plus*) 30 ml PO Q4H PRN PRN Reason: INDIGESTION Amlodipine Besylate (Norvasc Tab*) 10 mg PO DAILY [facility] Last Admin: 10/14/19 07:16 Dose: 10 mg Hydrochlorothiazide (Hydrodiuril Tab*) 25 mg PO DAILY [facility] Last Admin: 10/14/19 07:16 Dose: 25 mg Ibuprofen (Motrin Tab*) 600 mg PO Q6H PRN PRN Reason: PAIN - MILD Labetalol HCl (Trandate Tab*) 100 mg PO BID [facility] Last Admin: 10/14/19 11:14 Dose: 100 mg Lisinopril (Prinivil Tab*) 10 mg PO DAILY [facility] Last Admin: 10/14/19 07:16 Dose: 10 mg Multivitamins (Theragran Tab*) 1 tab PO DAILY [facility] Last Admin: 10/14/19 07:42 Dose: Not Given Paroxetine HCl (Paxil Tab*) 20 mg PO BEDTIME [facility] Last Admin: 10/13/19 21:01 Dose: 20 mg Zolpidem Tartrate (Ambien Tab*) 5 mg PO BEDTIME [facility] Last Admin: 10/13/19 21:01 Dose: 5 mg - Discharge Plan Discharge Plan: Inpatient Hospitalization
--- NOTE | 2019-10-14 12:58 | PN ---
BSU: Group Therapy Note - Service Type Service Type: [id number] Group Psychotherapy - Cognitive Behavioral Group Therapy ( CBT):Patient was attentive and participatory in CBT programming this morning, and remained in good behavioral control. Patient expressed positive insights regarding relevant treatment interventions and goals.
--- NOTE | 2019-10-14 16:15 | PN ---
BSU: Group Therapy Note - Service Type Service Type: [id number] Group Psychotherapy - Medication Education Group: Patient attended group and presented with bright affect. Although responsive to direct prompts to respond to questions, patient did not engage in spontaneous conversation.
[2019-10-14] MEDS ORDERED: Potassium Chloride* LIQUID 20 MEQ/15 ML UDC PO ONE (17:30)
--- NOTE | 2019-10-14 18:15 | CONS ---
CONSULTATION REPORT: DATE OF CONSULT: 10/14/18 REQUESTED BY: Dr. Malik. ATTENDING PHYSICIAN: Dr. Stone (being dictated by Lucila Pearl NP) REASON FOR CONSULT: Hypertension. HISTORY OF PRESENT ILLNESS: Mr. Seymour is a 64-year-old male who presented to the [facility] Emergency Department via EMS on 10/12/19 for SI, anxiety, hyperventilation, tachycardia, chest pain, shortness of breath and headache. It was reported per ED provider note that the patient was recently diagnosed with bladder and prostate cancer. He was making suicidal statements to his family prior to being brought in to the hospital that day. He was later admitted to BSU. He has been noted since arrival to have elevated blood pressures. When he originally came in, his blood pressure was 242/120 and his systolic has remained high in the mid to high 100s and diastolic has remained in the 80s to low 100s. The patient states that he can tell when his blood pressure is really high. He states that he will have ringing in his ears. He says that he heard ringing in his ears last night, was slightly worse to the right side. He stated that he had been taking his medications as usual prior to coming into the hospital. Denies any visual changes, headache, chest pain, shortness of breath, nausea, vomiting, diarrhea, continued urinary frequency, fevers, chills, numbness or tingling. He does complain of some occasional stinging with urination. He stated this did happen once last night. Denies any lower abdominal pain. Denies any blood in his urine. He states that he is concerned for when he goes home and is worried about if he starts feeling anxious and seems to be having increased anxiety, how he will cope with that and avoid an anxiety attack. It is noted that he started paroxetine during this current admission. He did have a prior admission in early September for hypertensive urgency. Again, he does state that he has been taking his medications regularly since discharge. Due to his consistently elevated blood pressure, Hospital Medicine was asked to consult on this patient. PAST MEDICAL HISTORY: 1. Prostate cancer. 2. Bladder cancer. 3. Hypertension. 4. Hypertensive urgency. PAST SURGICAL HISTORY: 1. Spinal surgery in 1976. 2. TURB. 3. Removal of a tumor to his right chest as a child, the patient unsure of type of tumor. HOME MEDICATIONS: 1. Amlodipine 10 mg p.o. daily. 2. Mirtazapine 15 mg p.o. at bedtime p.r.n. 3. Lisinopril 10 mg p.o. daily. 4. Hydrochlorothiazide 25 mg p.o. daily. ALLERGIES: No known drug allergies. FAMILY HISTORY: Sister with heart disease and MD. Father with scalp hidrosis, from an MD. Mother with Alzheimer's disease, also . SOCIAL HISTORY: Quit smoking tobacco in 2005, states he smoked approximately 1 pack per day for about 10 to 15 years. He states rare alcohol use. Denies any illicit drug use. He lives with his sister. No children. Retired last year. He was previously a alley worker. He states that a surrogate decision maker for him would be his sister, Nehal Gomez. REVIEW OF SYSTEMS: A 10-point review of systems was completed with this patient. Please see HPI for all pertinent positives and negatives. PHYSICAL EXAM: Constitutional: The patient is sitting up in bed, appears comfortable, in no acute distress. Last Vital Signs: Temp 97.2, heart rate 69 , respiratory rate 20, O2 sat 100%, BP 183/106. HEENT: No scleral icterus noted. Mucous membranes moist. Cardiovascular: Heart rate regular. S1, S2 present. No murmurs, rubs, or gallops noted. No edema. Respiratory: Lung sounds clear bilaterally throughout. Normal respiratory effort. GI: Bowel sounds throughout. Abdomen: Soft, nontender. No CVA tenderness. Quiet bruit to left renal artery noted. Musculoskeletal: Range of motion and strength 5/5 to all extremities. Skin: Dry and intact. Neuro: Alert and oriented x3. Psych: Responds appropriately. Currently denies SI or HI. DIAGNOSTIC STUDIES/LAB DATA: EKG from today shows sinus rhythm with a rate of 78. There is a left axis deviation with biphasic block, RBBB and LAFB. Meets LVH criteria. Poor R-wave progression. When compared to prior EKGs back to 2018, there are no significant changes. This was reviewed with . Labs from 10/14/19, hemoglobin A1c 5.7, triglycerides 81, cholesterol 185, LDL 95, HDL 69.6. TSH from 10/12/19 of 1.71. ASSESSMENT AND PLAN: Mr. Seymour is a 64-year-old male with a past medical history significant for hypertension, hypertensive urgency, prostate cancer and bladder cancer. He was admitted to BSU on 10/12/19 for suicidal ideation. His BPs have remained high throughout this admission. Hospital Medicine was asked to consult on this patient. 1. Suicidal ideation with inpatient treatment. Currently, denies suicidal ideation. Management of this condition per BSU providers. 2. Hypertension. Labetalol ordered to start earlier today. Additional dose of lisinopril to be given tonight with an increase in daily dosage, will start with lisinopril 20mg daily tomorrow as HTN seems to be resistant to labetalol at this time. Continue to follow BPs more frequently during the day. Bruit over L renal artery noted on exam however pt can f/u as outpatient to r/o any secondary cause for his htn. Referral for [facility]. 3. Insomnia. Ambien ordered per BSU provider. however we will add in a one time dose of melatonin this evening to see if this provides any additional benefit. Pt did c/o very poor sleep last night as well. He is concerned that poor sleep quality is a catalyst to his increase in anxiety and "negative thoughts". 4. Prostate cancer. He will have to follow up outpatient with Urology. 5. Bladder cancer. He will have to follow up outpatient with Urology. 6. Dysuria. UA on admission shows no convincing evidence for UTI. Remains afebrile with no other symptoms. States frequency has decreased and is more normal. No need for further workup at this time. 7. FEN: Continue with current diet. 8. Code status: Full code. 9. DVT prophylaxis: Per BSU provider. Disposition: BSU. Thank you for allowing us to participate in the care of this patient. We will follow during this admission. This plan has been discussed with my attending physician, Dr. Stone and he agrees with this plan. LUCILA PEARL, DAVID [id number]/CPS #: [id number] MARIA VICTORIA
[2019-10-14] MEDS: Senna TAB 8.6 mg* TAB PO PRN ×2 (20:37→20:41)
[2019-10-14] MEDS: PARoxetine HCL TAB* 20 MG PO SCH (20:38)
[2019-10-14] MEDS: Melatonin 3 MG TAB PO ONE ×2 (20:38→20:39)
[2019-10-14] MEDS: Zolpidem TAB* 5 MG PO SCH (20:41)
[2019-10-15] MEDS ORDERED: diPHENhydraMINE PO* 50 MG ONE (01:33)
[2019-10-15] MEDS: Hydrochlorothiazide TAB* 25 MG PO SCH (07:53)
[2019-10-15] MEDS: Labetalol TAB* 100 MG PO SCH ×2 (07:53→22:14)
[2019-10-15] MEDS: Vitamin THERAPEUTIC TAB PO SCH (07:53)
[2019-10-15] MEDS: amLODIPine TAB* 5 MG PO SCH (07:53)
[2019-10-15] MEDS: Lisinopril TAB* 10 MG PO SCH (07:54)
[2019-10-15 08:06] LABS: BUN/Creatinine Ratio 12.9 (8-20); Calcium 9.1 mg/dL (8.6-10.3); EGFR African American 89.7 (>60); EGFR Non-African American 74.1 (>60); Potassium 3.9 mmol/L (3.5-5.0)
--- NOTE | 2019-10-15 15:42 | PN ---
Subjective - Subjective Date of Service: 10/15/19 Service Type: [id number] Hosp care 15 min low complexity Subjective: Doc is doing OK today. He didn't get much sleep last night and then woke up with a systolic BP again in the 180s. He is an active participant in groups and is social with peers and pleasant on interview. He denies SI but would like to make sure this is resolved before pursuing discharge. He is tolerating his medications well. Objective - General Observations Appearance: Well Groomed Appears Stated Age: Yes Stature: WNL Posture: WNL Eye Contact: Average Behavior/Activity: WNL - Interaction Observations Attitude Towards Examiner: Cooperative Stated Mood: Anxious Affect: Full Speech Pattern/Tone: Clear, Appropriate Thought Process: Coherent Perception: WNL Thought Content: WNL Hallucination Type: None Delusion Type: None - Cognitive Function Orientation: A&O x 4 Level of Consciousness: Awake Cognition: WNL Estimated Intelligence: Normal Insight: WNL Judgment Within Normal Limits: Yes - Medication Compliance Cooperative with Inpatient Medication Regimen: Yes - Group Participation Participates in Group Activities: Yes Assessment - Assessment Merits Inpatient Hospitalization: For Immediate Safety, For Stabilization Inpatient DSM-V Dx: F32.1 Clinical Impression: 64 y.o. single, AA male with no previous psychiatric illness who has a medical history of poorly controlled HTN, bladder and prostate cancers, arrives by ambulance seeking voluntary hospitalization for worsening insomnia, depression and passive SI. BSU: Problem List - Patient Problems (1) Major depressive disorder, single episode, moderate Current Visit: Yes Status: Acute Priority: High Plan - Plan Treatment Plan: Name: DOC BARBOZA Birthdate: 1955 [id number] The patient has been taken off mirtazapine and placed on paroxetine 20mg PO qhs and zolpidem 5mg PO qhs. Appreciate Hospitalist input for HTN. The patient would benefit from further inpatient care to reduce the risk of resumption of SI. Continued Medication Management: Different Medication Medications: Current Medications Acetaminophen (Tylenol Tab*) 650 mg PO Q4H PRN PRN Reason: PAIN or TEMP > 101 F Al Hydrox/Mg Hydrox/Simethicone (Maalox Plus*) 30 ml PO Q4H PRN PRN Reason: INDIGESTION Amlodipine Besylate (Norvasc Tab*) 10 mg PO DAILY [facility] Last Admin: 10/15/19 07:53 Dose: 10 mg Hydrochlorothiazide (Hydrodiuril Tab*) 25 mg PO DAILY [facility] Last Admin: 10/15/19 07:53 Dose: 25 mg Ibuprofen (Motrin Tab*) 600 mg PO Q6H PRN PRN Reason: PAIN - MILD Labetalol HCl (Trandate Tab*) 100 mg PO BID [facility] Last Admin: 10/15/19 07:53 Dose: 100 mg Lisinopril (Prinivil Tab*) 20 mg PO DAILY [facility] Last Admin: 10/15/19 07:54 Dose: 20 mg Multivitamins (Theragran Tab*) 1 tab PO DAILY [facility] Last Admin: 10/15/19 07:53 Dose: 1 tab Paroxetine HCl (Paxil Tab*) 20 mg PO BEDTIME [facility] Last Admin: 10/14/19 20:38 Dose: 20 mg Senna (Senokot 8.6 Mg Tab*) 1 tab PO DAILY PRN PRN Reason: CONSTIPATION Last Admin: 10/14/19 20:41 Dose: 1 tab Zolpidem Tartrate (Ambien Tab*) 5 mg PO BEDTIME [facility] Last Admin: 10/14/19 20:41 Dose: 5 mg - Discharge Plan Discharge Plan: Inpatient Hospitalization Lab Results - Lab Results Lab Results: 10/12/19 10/12/19 10/14/19 15:25 15:30 06:21 Sodium 137 Potassium 3.2 L Chloride 105 Carbon Dioxide 19 L Anion Gap 13 H BUN 10 Creatinine 0.98 Est GFR ( Amer) 92.9 Est GFR (Non-Af Amer) 76.8 BUN/Creatinine Ratio 10.2 Glucose 110 H Hemoglobin A1c Calcium 9.4 Total Bilirubin 0.20 AST 19 ALT 21 Alkaline Phosphatase 72 Troponin I 0.00 Total Protein 7.1 Albumin 4.3 Globulin 2.8 Albumin/Globulin Ratio 1.5 Triglycerides 81 Cholesterol 185 LDL Cholesterol 99 HDL Cholesterol 69.6 TSH 1.71 Salicylates < 2.50 Urine Opiates Screen None detected Acetaminophen < 15 Ur Barbiturates Screen None detected Ur Phencyclidine Scrn None detected Ur Amphetamines Screen None detected U Benzodiazepines Scrn None detected Urine Cocaine Screen None detected U Cannabinoids Screen None detected Serum Alcohol < 10 10/14/19 10/15/19 06:21 07:39 Sodium 139 Potassium 3.9 Chloride 107 Carbon Dioxide 24 Anion Gap 8 BUN 13 Creatinine 1.01 Est GFR ( Amer) 89.7 Est GFR (Non-Af Amer) 74.1 BUN/Creatinine Ratio 12.9 Glucose 113 H Hemoglobin A1c 5.7 H Calcium 9.1 Total Bilirubin AST ALT Alkaline Phosphatase Troponin I Total Protein Albumin Globulin Albumin/Globulin Ratio Triglycerides Cholesterol LDL Cholesterol HDL Cholesterol TSH Salicylates Urine Opiates Screen Acetaminophen Ur Barbiturates Screen Ur Phencyclidine Scrn Ur Amphetamines Screen U Benzodiazepines Scrn Urine Cocaine Screen U Cannabinoids Screen Serum Alcohol
--- NOTE | 2019-10-15 17:50 | PN ---
Subjective Date of Service: 10/15/19 Interval History: Patient reports he feels well today. Reports ringing in ears improving today. Denies headaches, cp, palpitations, sob. Objective Active Medications: Acetaminophen (Tylenol Tab*) 650 mg PO Q4H PRN PRN Reason: PAIN or TEMP > 101 F Al Hydrox/Mg Hydrox/Simethicone (Maalox Plus*) 30 ml PO Q4H PRN PRN Reason: INDIGESTION Amlodipine Besylate (Norvasc Tab*) 10 mg PO DAILY [facility] Last Admin: 10/15/19 07:53 Dose: 10 mg Hydrochlorothiazide (Hydrodiuril Tab*) 25 mg PO DAILY [facility] Last Admin: 10/15/19 07:53 Dose: 25 mg Ibuprofen (Motrin Tab*) 600 mg PO Q6H PRN PRN Reason: PAIN - MILD Labetalol HCl (Trandate Tab*) 100 mg PO BID [facility] Last Admin: 10/15/19 07:53 Dose: 100 mg Lisinopril (Prinivil Tab*) 20 mg PO DAILY [facility] Last Admin: 10/15/19 07:54 Dose: 20 mg Multivitamins (Theragran Tab*) 1 tab PO DAILY [facility] Last Admin: 10/15/19 07:53 Dose: 1 tab Paroxetine HCl (Paxil Tab*) 20 mg PO BEDTIME [facility] Last Admin: 10/14/19 20:38 Dose: 20 mg Senna (Senokot 8.6 Mg Tab*) 1 tab PO DAILY PRN PRN Reason: CONSTIPATION Last Admin: 10/14/19 20:41 Dose: 1 tab Zolpidem Tartrate (Ambien Tab*) 5 mg PO BEDTIME [facility] Last Admin: 10/14/19 20:41 Dose: 5 mg Vital Signs - 8 hr 10/15/19 10/15/19 13:23 17:07 Temperature 97.5 F Pulse Rate 85 80 Respiratory 14 16 Rate Blood Pressure 146/79 136/81 (mmHg) O2 Sat by Pulse 100 100 Oximetry Oxygen Devices in Use Now: None Appearance: Comfortable, NAD Eyes: No Scleral Icterus Ears/Nose/Mouth/Throat: Clear Oropharnyx, Mucous Membranes Moist Neck: NL Appearance and Movements; NL JVP Respiratory: Symmetrical Chest Expansion and Respiratory Effort, Clear to Auscultation Cardiovascular: NL Sounds; No Murmurs; No JVD, RRR, No Edema Abdominal: NL Sounds; No Tenderness; No Distention Extremities: No Edema Skin: No Rash or Ulcers Neurological: Alert and Oriented x 3 Nutrition: Taking PO's Result Diagrams: 10/12/19 15:30 10/15/19 07:39 Additional Lab and Data: Laboratory Results - last 24 hr 10/15/19 07:39 Sodium 139 Potassium 3.9 Chloride 107 Carbon Dioxide 24 Anion Gap 8 BUN 13 Creatinine 1.01 Est GFR ( Amer) 89.7 Est GFR (Non-Af Amer) 74.1 BUN/Creatinine Ratio 12.9 Glucose 113 H Calcium 9.1 Microbiology and Other Data: Microbiology 10/12/19 15:25 Urine Culture - Final Urine No Growth (<1,000 CFU/mL) Assess/Plan/Problems-Billing Assessment: 64 yr old male with pmh of prostate ca, bladder ca, htn, hypertensive urgency; who was admitted to [facility] for suicidal ideation and medicine was consulted due to hypertension. - Patient Problems (1) Hypertension Comment: - Labetalol added yesterday in addition to increase dose of lisinopril - Improved SBP today after medications. nurse reviewer SBP 180 and afternoon SBP 146 - Would still benefit from outpatient imaging of kidneys and referral - Would benefit from recheck of BMP Friday (2) Suicidal ideation Comment: - Management per psych (3) Insomnia Comment: - Ambien per psych - Melatonin given last evening and patient reported improvement in sleep, therfore, prn melatonin ordered (4) Bladder cancer Comment: - Defer to outpatient urologist - Will also need pcp. Referral to [facility] as discharge (5) Prostate cancer Comment: - As above Status and Disposition: Dispo per [facility] Attending: Anthony Stone
[2019-10-15] MEDS ORDERED: Melatonin 3 MG TAB PO PRN (17:54)
[2019-10-15] MEDS: PARoxetine HCL TAB* 20 MG PO SCH (22:14)
[2019-10-15] MEDS: Zolpidem TAB* 5 MG PO SCH (22:14)
[2019-10-16] MEDS: Labetalol TAB* 100 MG PO SCH ×2 (08:53→20:28)
[2019-10-16] MEDS: Lisinopril TAB* 10 MG PO SCH (08:53)
[2019-10-16] MEDS: Hydrochlorothiazide TAB* 25 MG PO SCH (08:54)
[2019-10-16] MEDS: amLODIPine TAB* 5 MG PO SCH (08:54)
[2019-10-16] MEDS: Vitamin THERAPEUTIC TAB PO SCH (08:55)
[2019-10-16] MEDS ORDERED: hydrOXYzine HCL TAB* 50 MG PO PRN (14:08)
--- NOTE | 2019-10-16 14:59 | PN ---
Subjective - Subjective Date of Service: 10/16/19 Subjective: Found in bed in the middle of the day. He complains of feeling tired because of poor sleep in the last 3 nights. He reports the Ambien 5 mg was not effective and he is willing to try 10 mg today. He endorses anxiety related to his health issues. He is receptive to psycho-education to stay out of bed during the day and consents to addition of Hydroxyzine prn for anxiety, He denies side effects from the prescribed Paroxetine. His BP was 147/99 upon waking, now 146/84. Hospitalist service continues to folow-up. Per staff: he remains seclusive to his room. Objective - General Observations Appearance: Neat Appears Stated Age: Yes Stature: WNL Posture: Other (See Comment) - Lying in bed Eye Contact: Average Behavior/Activity: Slowed - Interaction Observations Attitude Towards Examiner: Cooperative Stated Mood: Dysphoric, Anxious Affect: Restricted Speech Pattern/Tone: Clear Thought Process: Coherent, Goal Directed Perception: WNL Thought Content: WNL Hallucination Type: None Delusion Type: None - Cognitive Function Orientation: A&O x 4 Level of Consciousness: Alert Cognition: WNL Estimated Intelligence: Normal Judgment Within Normal Limits: Yes - Medication Compliance Cooperative with Inpatient Medication Regimen: Yes - Group Participation Participates in Group Activities: Yes Assessment - Assessment Merits Inpatient Hospitalization: For Ongoing Evaluation, Consolidate Improvements, For Discharge Planning Inpatient DSM-V Dx: F32.1 Clinical Impression: 64 y.o. single, AA male with no previous psychiatric illness who has a medical history of poorly controlled HTN, bladder and prostate cancers, arrives by ambulance seeking voluntary hospitalization for worsening insomnia, depression and passive SI. Doc continues to endorse high level of distress, denying SI and oh for safety. Med management has continued trial of Paroxetine, increased Zolpidem to 10 mg PO QHS for better control of insomnia and added Hydroxyzine prn for anxiety. He continues to require inpatient level of care for stabilization. Plan - Plan Treatment Plan: Name: DOC BARBOZA Birthdate: 1955 [id number] The patient has been taken off mirtazapine and placed on paroxetine 20mg PO qhs and zolpidem 10 mg PO qhs. Appreciate Hospitalist input for HTN. The patient would benefit from further inpatient care to reduce the risk of resumption of SI. Medications: Current Medications Acetaminophen (Tylenol Tab*) 650 mg PO Q4H PRN PRN Reason: PAIN or TEMP > 101 F Al Hydrox/Mg Hydrox/Simethicone (Maalox Plus*) 30 ml PO Q4H PRN PRN Reason: INDIGESTION Amlodipine Besylate (Norvasc Tab*) 10 mg PO DAILY [facility] Last Admin: 10/16/19 08:54 Dose: 10 mg Hydrochlorothiazide (Hydrodiuril Tab*) 25 mg PO DAILY [facility] Last Admin: 10/16/19 08:54 Dose: 25 mg Hydroxyzine HCl (Atarax Tab*) 50 mg PO Q6H PRN PRN Reason: .ANXIETY Ibuprofen (Motrin Tab*) 600 mg PO Q6H PRN PRN Reason: PAIN - MILD Labetalol HCl (Trandate Tab*) 100 mg PO BID [facility] Last Admin: 10/16/19 08:53 Dose: 100 mg Lisinopril (Prinivil Tab*) 20 mg PO DAILY [facility] Last Admin: 10/16/19 08:53 Dose: 20 mg Melatonin (Melatonin) 3 mg PO BEDTIME PRN PRN Reason: SLEEP Last Admin: 10/15/19 22:14 Dose: 3 mg Multivitamins (Theragran Tab*) 1 tab PO DAILY [facility] Last Admin: 10/16/19 08:55 Dose: 1 tab Paroxetine HCl (Paxil Tab*) 20 mg PO BEDTIME [facility] Last Admin: 10/15/19 22:14 Dose: 20 mg Senna (Senokot 8.6 Mg Tab*) 1 tab PO DAILY PRN PRN Reason: CONSTIPATION Last Admin: 10/14/19 20:41 Dose: 1 tab Zolpidem Tartrate (Ambien Tab*) 10 mg PO BEDTIME [facility] - Discharge Plan Discharge Plan: Outpatient Follow Up Outpatient Program: [facility]
--- NOTE | 2019-10-16 18:07 | PN ---
Hospitalist Progress Note Date of Service: 10/16/19 BP improving with addition of BB and increase in lisinopril. As mentioned in previous consult would recommend outpatient work up for secondary hypertension such as renal disease. Would also recommend repeat BMP to assess electrolytes and creatinine after the increase in lisinopril. Will continue to follow distantly. Thank you for allowing us to participate in the care of this patient.
[2019-10-16] MEDS: PARoxetine HCL TAB* 20 MG PO SCH (21:30)
[2019-10-16] MEDS: Zolpidem TAB* 10 MG PO SCH (21:31)
[2019-10-17] MEDS: amLODIPine TAB* 5 MG PO SCH (08:55)
[2019-10-17] MEDS: Hydrochlorothiazide TAB* 25 MG PO SCH (08:55)
[2019-10-17] MEDS: Lisinopril TAB* 10 MG PO SCH (08:55)
[2019-10-17] MEDS: Labetalol TAB* 100 MG PO SCH ×2 (08:55→21:36)
[2019-10-17] MEDS: Vitamin THERAPEUTIC TAB PO SCH (08:55)
[2019-10-17] MEDS: PARoxetine HCL TAB* 20 MG PO SCH (21:35)
[2019-10-17] MEDS: Zolpidem TAB* 10 MG PO SCH (21:36)
[2019-10-18] MEDS: Hydrochlorothiazide TAB* 25 MG PO SCH (11:11)
[2019-10-18] MEDS: Labetalol TAB* 100 MG PO SCH ×2 (11:11→20:35)
[2019-10-18] MEDS: amLODIPine TAB* 5 MG PO SCH (11:11)
[2019-10-18] MEDS: Lisinopril TAB* 10 MG PO SCH (11:11)
--- NOTE | 2019-10-18 11:12 | PN ---
Subjective - Subjective Date of Service: 10/18/19 Service Type: [id number] Hosp care 15 min low complexity Subjective: Doc remains distressed and not sleeping well, although he continues to deny further SI. On exam he is in bed under the covers saying that he feels "exhausted." He does not believe the zolpidem is helping as he cannot sleep through the night and then wakes up feeling "shaky" and "dizzy." He is willing to change this to clonazepam. He continues to complain of intense ringing in his ears. Objective - General Observations Appearance: Well Groomed Appears Stated Age: Yes Stature: WNL Posture: Slumped Eye Contact: Average Behavior/Activity: WNL - Interaction Observations Attitude Towards Examiner: Cooperative Stated Mood: Dysphoric Affect: Restricted Speech Pattern/Tone: Clear Thought Process: Coherent Thought Content: WNL Hallucination Type: None Delusion Type: None - Cognitive Function Orientation: A&O x 4 Level of Consciousness: Awake Cognition: WNL Estimated Intelligence: Normal Insight: WNL Judgment Within Normal Limits: Yes - Medication Compliance Cooperative with Inpatient Medication Regimen: Yes - Group Participation Participates in Group Activities: Yes Assessment - Assessment Merits Inpatient Hospitalization: For Immediate Safety, For Stabilization Inpatient DSM-V Dx: F32.1 Clinical Impression: 64 y.o. single, AA male with no previous psychiatric illness who has a medical history of poorly controlled HTN, bladder and prostate cancers, arrives by ambulance seeking voluntary hospitalization for worsening insomnia, depression and passive SI. BSU: Problem List - Patient Problems (1) Major depressive disorder, single episode, moderate Current Visit: Yes Status: Acute Priority: High Plan - Plan Treatment Plan: Name: DOC BARBOZA Birthdate: 1955 [id number] The patient has been taken off mirtazapine and placed on paroxetine 20mg PO qhs and zolpidem 10 mg PO qhs. Will d/c zolpidem in favor of clonazepam 1mg PO qhs. Appreciate Hospitalist input for HTN. The patient would benefit from further inpatient care to reduce the risk of resumption of SI. Continued Medication Management: Different Medication Medications: Current Medications Acetaminophen (Tylenol Tab*) 650 mg PO Q4H PRN PRN Reason: PAIN or TEMP > 101 F Al Hydrox/Mg Hydrox/Simethicone (Maalox Plus*) 30 ml PO Q4H PRN PRN Reason: INDIGESTION Amlodipine Besylate (Norvasc Tab*) 10 mg PO DAILY [facility] Last Admin: 10/17/19 08:55 Dose: 10 mg Clonazepam (Klonopin Tab(*)) 1 mg PO BEDTIME [facility] Hydrochlorothiazide (Hydrodiuril Tab*) 25 mg PO DAILY [facility] Last Admin: 10/17/19 08:55 Dose: 25 mg Hydroxyzine HCl (Atarax Tab*) 50 mg PO Q6H PRN PRN Reason: .ANXIETY Last Admin: 10/16/19 19:14 Dose: 50 mg Ibuprofen (Motrin Tab*) 600 mg PO Q6H PRN PRN Reason: PAIN - MILD Labetalol HCl (Trandate Tab*) 100 mg PO BID [facility] Last Admin: 10/17/19 21:36 Dose: 100 mg Lisinopril (Prinivil Tab*) 20 mg PO DAILY [facility] Last Admin: 10/17/19 08:55 Dose: 20 mg Multivitamins (Theragran Tab*) 1 tab PO DAILY [facility] Last Admin: 10/17/19 08:55 Dose: 1 tab Paroxetine HCl (Paxil Tab*) 20 mg PO BEDTIME [facility] Last Admin: 10/17/19 21:35 Dose: 20 mg Senna (Senokot 8.6 Mg Tab*) 1 tab PO DAILY PRN PRN Reason: CONSTIPATION Last Admin: 10/14/19 20:41 Dose: 1 tab - Discharge Plan Discharge Plan: Inpatient Hospitalization
[2019-10-18] MEDS: Vitamin THERAPEUTIC TAB PO SCH (11:14)
[2019-10-18] MEDS: clonazePAM TAB(*) 1 MG PO SCH (20:33)
[2019-10-18] MEDS: PARoxetine HCL TAB* 20 MG PO SCH (20:35)
--- NOTE | 2019-10-19 07:06 | PN ---
Hospitalist Progress Note Date of Service: 10/19/19 Mr. Seymour's blood pressure has been well controlled over last > 24 hours on current regimen. Recommend that patient continues on these medications and continues blood pressure monitoring. The hospitalist team will sign off at this time. Thank you for allowing us to participate in the care of this patient. Please to do not hesitate to reconsult if any concerns arise.
[2019-10-19] MEDS: amLODIPine TAB* 5 MG PO SCH (09:49)
[2019-10-19] MEDS: Labetalol TAB* 100 MG PO SCH ×2 (09:50→20:52)
[2019-10-19] MEDS: Lisinopril TAB* 10 MG PO SCH (09:50)
[2019-10-19] MEDS: Vitamin THERAPEUTIC TAB PO SCH (09:50)
[2019-10-19] MEDS: Hydrochlorothiazide TAB* 25 MG PO SCH (09:51)
--- NOTE | 2019-10-19 12:11 | PN ---
Subjective - Subjective Date of Service: 10/19/19 Service Type: [id number] Hosp care 15 min low complexity Subjective: Steve is feeling better today and prefers the clonazepam for his insomnia over the zolpidem. He denies SI. Steve called his sister Nehal, with whom he has been staying, and she is agreeable with allowing him to return there but requested that he wait an additional day for discharge so that she could make arrangements. Objective - General Observations Appearance: Well Groomed Appears Stated Age: Yes Stature: WNL Posture: WNL Eye Contact: Average Behavior/Activity: WNL - Interaction Observations Attitude Towards Examiner: Cooperative Stated Mood: Euthymic Affect: Full Speech Pattern/Tone: Clear, Appropriate Thought Process: Coherent Perception: WNL Thought Content: WNL Hallucination Type: None Delusion Type: None - Cognitive Function Orientation: A&O x 4 Level of Consciousness: Awake Cognition: WNL Estimated Intelligence: Normal Insight: WNL Judgment Within Normal Limits: Yes - Medication Compliance Cooperative with Inpatient Medication Regimen: Yes - Group Participation Participates in Group Activities: Yes Assessment - Assessment Merits Inpatient Hospitalization: Consolidate Improvements, Pending Safe DC Plan Inpatient DSM-V Dx: F32.1 Clinical Impression: 64 y.o. single, AA male with no previous psychiatric illness who has a medical history of poorly controlled HTN, bladder and prostate cancers, arrives by ambulance seeking voluntary hospitalization for worsening insomnia, depression and passive SI. BSU: Problem List - Patient Problems (1) Major depressive disorder, single episode, moderate Current Visit: Yes Status: Acute Priority: High Plan - Plan Treatment Plan: Name: STEVE BARBOZA Birthdate: 1955 [id number] The patient has been taken off mirtazapine and placed on paroxetine 20mg PO qhs and clonazepam 1mg PO qhs. Will target discharge for tomorrow (10/19). Continued Medication Management: Start Medication Medications: Current Medications Acetaminophen (Tylenol Tab*) 650 mg PO Q4H PRN PRN Reason: PAIN or TEMP > 101 F Al Hydrox/Mg Hydrox/Simethicone (Maalox Plus*) 30 ml PO Q4H PRN PRN Reason: INDIGESTION Amlodipine Besylate (Norvasc Tab*) 10 mg PO DAILY [facility] Last Admin: 10/19/19 09:49 Dose: 10 mg Clonazepam (Klonopin Tab(*)) 1 mg PO BEDTIME [facility] Last Admin: 10/18/19 20:33 Dose: 1 mg Hydrochlorothiazide (Hydrodiuril Tab*) 25 mg PO DAILY [facility] Last Admin: 10/19/19 09:51 Dose: 25 mg Hydroxyzine HCl (Atarax Tab*) 50 mg PO Q6H PRN PRN Reason: .ANXIETY Last Admin: 10/16/19 19:14 Dose: 50 mg Ibuprofen (Motrin Tab*) 600 mg PO Q6H PRN PRN Reason: PAIN - MILD Labetalol HCl (Trandate Tab*) 100 mg PO BID [facility] Last Admin: 10/19/19 09:50 Dose: 100 mg Lisinopril (Prinivil Tab*) 20 mg PO DAILY [facility] Last Admin: 10/19/19 09:50 Dose: 20 mg Multivitamins (Theragran Tab*) 1 tab PO DAILY [facility] Last Admin: 10/19/19 09:50 Dose: 1 tab Paroxetine HCl (Paxil Tab*) 20 mg PO BEDTIME [facility] Last Admin: 10/18/19 20:35 Dose: 20 mg Senna (Senokot 8.6 Mg Tab*) 1 tab PO DAILY PRN PRN Reason: CONSTIPATION Last Admin: 10/14/19 20:41 Dose: 1 tab - Discharge Plan Discharge Plan: Outpatient Follow Up Outpatient Program: [facility]
[2019-10-19] MEDS: PARoxetine HCL TAB* 20 MG PO SCH (20:51)
[2019-10-19] MEDS: clonazePAM TAB(*) 1 MG PO SCH (20:51)
[2019-10-20] MEDS: Lisinopril TAB* 10 MG PO SCH (09:37)
[2019-10-20] MEDS: Vitamin THERAPEUTIC TAB PO SCH (09:38)
[2019-10-20] MEDS: Hydrochlorothiazide TAB* 25 MG PO SCH (09:38)
[2019-10-20] MEDS: amLODIPine TAB* 5 MG PO SCH (09:38)
[2019-10-20] MEDS: Labetalol TAB* 100 MG PO SCH (09:38)
[2019-10-20 10:02] VITALS: BP 136/82
--- NOTE | 2019-10-20 12:14 | DS ---
CC: Dr. Vieira DISCHARGE SUMMARY: DATE OF ADMISSION: 10/12/19 DATE OF DISCHARGE: 10/20/19 DISCHARGE DIAGNOSES: As follows: [place] I: Major depressive disorder, single episode, severe, without psychotic features. [place] II: Deferred. CONDITION AT THE TIME OF DISCHARGE: Improved. The patient has been steadfastly denying suicidal sagar ations since the time of admission. He is tolerating his medications well. He has been going to maame ups and feels safe to receive treatment in a less restrictive setting. Mr. Seymour has been safe on al l checks and we see no barriers to him receiving definitive care in the community setting. We have r eached his sister, Nehal, on the phone, who is willing to have Steve return to live with her. She is in agreement with the discharge plan. At this point, Steve's followup appointments with both [facility] as well as mental health services in the community have been established and he is very mu ch looking forward to continuing his treatment in that setting. MENTAL STATUS EXAM: At the time of discharge, Steve is a middle-aged male of [place], who is clean, well groomed, casually dressed in jeans and a nieves sweatshirt. His speech oliver s normal rate, tone, and volume. Mood appears to be euthymic with a full affect. Thought process is linear and goal directed. Thought content is significant for his desire to be [facility]. He is denying suicidal or homicidal ideations. He denies auditory or visual hallucinations . Insight and judgment are fair given his willingness to follow up in the outpatient setting. Cogni tively, he is awake and alert with would appear to be an average intellect. DISCHARGE INSTRUCTIONS TO THE PATIENT: As follows: A. Medications: He is takin. Paroxetine 20 mg p.o. q.h.s. 2. Senokot 8.6 mg 1 tablet daily as a p.r.n. for constipation. 3. Lisinopril 20 mg p.o. daily. 4. Labetalol 100 mg p.o. b.i.d. 5. Klonopin 1 mg p.o. q.h.s. 6. Hydrochlorothiazide 25 mg p.o. daily. 7. Amlodipine 10 mg p.o. daily. B. Diet is regular. C. Activities: As tolerated. The patient is a nonsmoker. There are no laboratory or diagnostic st udies pending at the time of discharge. D. Followup care: The patient will follow up with Dr. Babar Vieira at the [facility] on , 10/21/19 at 9 a.m. He will also follow up at the [facility] where his intake is established for 10/22/19 at 9:30 a.m. E. Substance abuse followup is nonapplicable. F. Disposition: The patient is being discharged to his sister's apartment. HOSPITAL COURSE: Part A: Reason for admission: The patient is a 64-year-old single, never A frican [place] male, with no previous psychiatric history, who arrived at our hospital complaining o f having an anxiety attack as well as feelings of suicide without plan. He later told the crisis ginette jacobator that if he had access to a Glock pistol that he would shoot himself. The patient was tearful, hypertensive and could not contract for safety and was therefore admitted to the hospital on a volun tary status. When I initially met with him, he indicated that his insomnia had been progressive for approximately the past 2 months. In July 2019, he had tumors [facility] from [facility] bladder [facility], Dr. Ho. The patient is quoted as saying "I found it traumatizing, there were cath eters in me and blood everywhere when I woke up on the table, they had to put me back under in order to cauterize the wounds inside me, I just do not want any more of that." The concern apparently is t hat he has been also identified as having prostate cancer. Urology recommends a course of treatment that the patient claims that he has no energy or desire for given the difficulties he experienced wit h his bladder surgery. He has been experiencing severe urinary frequency and hematuria, which have b een interrupting his sleep. Recently, the patient was hospitalized for hypertensive crisis on the spitalist service in early September and at that time they identified depression and insomnia as probl ems. The patient was started on mirtazapine; however, he states that it was not working for sleep an d that it left him feeling groggy and sedated in the morning; therefore, he only took it intermittent ly and has essentially stopped taking it at the point of admission. The patient has experienced suici david ideations for the past several weeks, feeling increasingly desperate about his inability to sleep . He also notes that when his blood pressure is high, he experiences severe ringing in his ears. I asked him about other stressors in his social life, which he denied. Symptomatically, he endorsed in somnia, anhedonia, lethargy, poor concentration, decreased appetite with 15-pound weight loss, and cesar icidal ideations. He did deny any feelings of guilt or symptoms of psychomotor retardation. Part B: Psychiatric treatment rendered: The patient was admitted to the [facility] where he was placed on q.15-minute checks for his own safety. In general, Steve was adherent with treatment expectations here. He frequently went to groups and was an active participant in [facility]. He was kind and cooperative throughout his stay. One initial concern that we had was marcellus s extremely elevated blood pressure. He had levels that frequently measured in the 180s range systol ically. For this reason, we promptly requested hospitalist consultation. They continued him on hydr ochlorothiazide and amlodipine, but increased his lisinopril from 10 to 20 mg daily as well as adding a trial of labetalol 100 mg p.o. b.i.d. The patient's blood pressures improved thereafter. We ident ified sleep as a major concern and so he was started on zolpidem initially 5 mg nightly, but increase d to 10 mg nightly. Unfortunately, this made him feel dizzy and fatigued in the morning and for this reason was switched to a trial of clonazepam 1 mg p.o. q.h.s., which he tolerated much better. Araseli use he met criteria for a major depressive episode, we also added a trial of paroxetine 20 mg p.o. q. h.s. and we formally discontinued mirtazapine. Steve tolerated his medications well, although he do es complain of mild sedation. He is believing at this point that this may be secondary to antihypert ensives and we encouraged him to bring up this issue with Dr. Vieira when he is seen for intake tomorro w. Otherwise, Steve has done quite well here and he is agreeable to receiving treatment in a less r estrictive setting. We wish Steve all the best for a safe and healthy future. [id number]/[facility] #: [id number]
== END 2019-10-20 13:10 | disposition home or self-care (01) | DRG 751 ==
LOC: ED 14:55 → BSU 21:13 → ED 22:45 → BSU 10-13 13:51
PROVIDERS: ADMIT Psychiatry & Neurology Psychiatry; ATTEND Psychiatry & Neurology Psychiatry
PROC: GZHZZZZ Group Psychotherapy (ICD-10-PCS; principal; 2019-10-14)
DX: F32.2 Major depressive disorder, single episode, severe without psychotic features (principal); R45.851 Suicidal ideations; I16.9 Hypertensive crisis, unspecified; I10 Essential (primary) hypertension; G47.00 Insomnia, unspecified; R30.0 Dysuria; Z79.899 Other long term (current) drug therapy; Z85.46 Personal history of malignant neoplasm of prostate; Z85.51 Personal history of malignant neoplasm of bladder; Z87.891 Personal history of nicotine dependence; Z28.21 Immunization not carried out because of patient refusal
CPT/HCPCS: 36415; 71045; 80048; 80053; 80061; 80307; 80320; 80329; 81003; 81015; 83036; 84443; 84484; 85025; 87086; 90853; 93005; 96361; 96374; 99222; 99231; 99284; A9270-GY; G0480; J0360; J2060

== ENCOUNTER 2021-11-12 08:33 | Inpatient (IN) ==
[2021-11-12 09:49] LABS: ABS Basophils 0.1 10^3/ul (0-0.2); ABS Eosinophils 0.1 10^3/ul (0-0.6); ABS Lymphocytes 0.7 10^3/ul (1.0-4.8); ABS Monocytes 0.3 10^3/ul (0-0.8); Eosinophil % 2.7 %; Hematocrit 37 % (42-52); Hemoglobin 12.5 g/dL (14.0-18.0); Lymphocyte % 17.4 %; Mean Corpuscular HGB Conc 34 g/dL (31-36); Mean Corpuscular Hemoglobin 30 pg (27-31); Mean Corpuscular Volume 89 fL (80-94); Platelet Count 209 10^3/uL (150-450); Red Blood Count 4.17 10^6 /uL (4.18-5.48); Red Cell Distribution Width 16 % (10-15); White Blood Count 4.2 10^3/uL (3.5-10.8)
[2021-11-12 10:48] LABS: Albumin/Globulin Ratio 1.5 (1-3); Alkaline Phosphatase 353 U/L (35-149); Blood Urea Nitrogen 8 mg/dL (6-24); CO2 Carbon Dioxide 26 mmol/L (22-32); Calcium 9.4 mg/dL (8.6-10.3); Chloride 104 mmol/L (101-111); Globulin 2.6 g/dL (2-4); Glucose 145 mg/dL (70-100); Lipase 149 U/L (11.0-82.0); Sodium 142 mmol/L (135-145); Total Protein 6.6 g/dL (6.4-8.9); eGFR CKD-EPI 82.5 (>60)
[2021-11-12 10:51] LABS: Anion Gap 12 mmol/L (2-11)
[2021-11-12] MEDS ORDERED: Iohexol 300 (CONTRAST) 10 ML SDV IV ONE (11:06)
[2021-11-12 11:15] LABS: Urine Appearance Clear; Urine Bilirubin Negative (Negative); Urine Blood 2+ (Negative); Urine Color Amber; Urine Glucose Negative (Negative); Urine Ketones Negative (Negative); Urine Nitrite Negative (Negative); Urine Protein Negative (Negative); Urine Specific Gravity 1.003 (1.002-1.030); Urine Urobilinogen Negative (Negative)
[2021-11-12 11:24] LABS: Urine Bacteria Absent (Absent); Urine Red Blood Cell Trace(0-2/hpf) (Absent); Urine White Blood Cell Absent (Absent)
[2021-11-12 11:34] LABS: GGTP 431 U/L (9-64.0); Indirect Bilirubin 3.3 mg/dL (0.3-1.0)
[2021-11-12 13:46] LABS: ALT 613 U/L (7-52)
[2021-11-12 14:03] LABS: Potassium Redraw 3.6 mmol/L (3.5-5.0)
[2021-11-12 16:39] LABS: INR 1.26 (0.86-1.15)
[2021-11-12] MEDS ORDERED: Heparin 5000 UNITS/ML 1 mL VIAL SUBCUT ONE (19:00)
[2021-11-13 06:08] LABS: ABS Basophils 0.1 10^3/ul (0-0.2); ABS Eosinophils 0.2 10^3/ul (0-0.6); ABS Lymphocytes 1.4 10^3/ul (1.0-4.8); ABS Monocytes 0.4 10^3/ul (0-0.8); ABS Neutrophils 2.3 10^3/ul (1.5-7.7); Eosinophil % 4.1 %; Hematocrit 35 % (42-52); Hemoglobin 12.1 g/dL (14.0-18.0); Lymphocyte % 32.6 %; Mean Corpuscular HGB Conc 35 g/dL (31-36); Mean Corpuscular Hemoglobin 31 pg (27-31); Mean Corpuscular Volume 88 fL (80-94); Mean Platelet Volume 8.8 fL (7.4-10.4); Nucleated Red Blood Cells % 0.2; Platelet Count 209 10^3/uL (150-450); Red Blood Count 3.95 10^6 /uL (4.18-5.48); Red Cell Distribution Width 17 % (10-15); White Blood Count 4.4 10^3/uL (3.5-10.8)
[2021-11-13 06:10] LABS: INR 1.27 (0.86-1.15)
[2021-11-13 06:31] LABS: Albumin 3.6 g/dL (3.2-5.2); Albumin/Globulin Ratio 1.6 (1-3); Globulin 2.3 g/dL (2-4); Magnesium 1.9 mg/dL (1.9-2.7); Potassium 3.8 mmol/L (3.5-5.0); Total Bilirubin 9.5 mg/dL (0.2-1.0); Total Protein 5.9 g/dL (6.4-8.9); eGFR CKD-EPI 78.7 (>60)
[2021-11-13] MEDS ORDERED: Magnesium Sulfate 2 gm BAG 2 GM/50 ML BAG IVPB ONE (06:38)
[2021-11-13 06:39] LABS: PSA Screening Total 40.111 ng/mL (0-4.000)
[2021-11-13] MEDS ORDERED: Piperacillin/Tazobac ADVAN 3.375 GM in NS 0.9% 100 ml BAG 100 ML IV ONE (15:41)
[2021-11-13] MEDS ORDERED: Piperacillin/Tazobac 3.375 GM BAG ONE ×2 (15:59→16:03)
[2021-11-13] MEDS ORDERED: Zosyn per Pharmacy NOTE FOLLOW UP SCH (16:00)
[2021-11-13] MEDS ORDERED: Lidocaine 2% PF 5 ML VIAL ONE (16:44)
[2021-11-13] MEDS ORDERED: Propofol 10 MG/ML 20 ML BTL ONE (16:44)
[2021-11-13] MEDS ORDERED: Rocuronium 50 mg VIAL 10 mg/ml 5 ml VIAL (50 mg) ONE (16:44)
[2021-11-13] MEDS ORDERED: fentaNYL 100 mcg/2 ml 50 MCG/ML VIAL ONE (16:44)
[2021-11-13] MEDS ORDERED: Midazolam 2 mg/2 ml VIAL 1 mg/ml 2 ml VIAL (2 mg) ONE (16:45)
[2021-11-13] MEDS ORDERED: Indomethacin 50 mg SUPP (NF) PR ONE (17:08)
[2021-11-13] MEDS ORDERED: Naloxone 0.4 mg VIAL 0.4 mg/ml 1 ml VIAL IV PRN (17:12)
[2021-11-13] MEDS ORDERED: DiMENhydriNATE IV 50 mg/ml 1 ml VIAL IV PUSH PRN (17:12)
[2021-11-13] MEDS ORDERED: fentaNYL 100 mcg/2 ml 50 MCG/ML VIAL IV PRN (17:12)
[2021-11-13] MEDS ORDERED: Glycopyrrolate IV 0.2 MG/ML 1 ML VIAL ONE (17:51)
[2021-11-13] MEDS ORDERED: Ondansetron 4 mg VIAL 2 MG/ML 2 ml VIAL ONE (18:06)
[2021-11-13] MEDS ORDERED: Dexamethasone IV 4 MG/ML VIAL 1 ml VIAL ONE (18:06)
[2021-11-13] MEDS ORDERED: Phenylephrine 40 mcg/mL 10mL (400mcg) SYRINGE ONE (18:25)
[2021-11-13] MEDS ORDERED: Enoxaparin 40 MG/0.4 ML SYR SUBCUT SCH (21:00)
[2021-11-13] MEDS: ZOSYN 3.375 GM Q8H per EXTENDED INFUSION IV SCH (22:19)
[2021-11-14] MEDS: ZOSYN 3.375 GM Q8H per EXTENDED INFUSION IV SCH ×3 (05:50→22:05)
[2021-11-14 06:09] LABS: Hematocrit 36 % (42-52); Hemoglobin 12.2 g/dL (14.0-18.0); Mean Corpuscular HGB Conc 34 g/dL (31-36); Mean Corpuscular Hemoglobin 30 pg (27-31); Mean Corpuscular Volume 89 fL (80-94); Mean Platelet Volume 9.3 fL (7.4-10.4); Platelet Count 223 10^3/uL (150-450); Red Blood Count 4.06 10^6 /uL (4.18-5.48); Red Cell Distribution Width 17 % (10-15); White Blood Count 7.9 10^3/uL (3.5-10.8)
[2021-11-14 06:22] LABS: Albumin 3.7 g/dL (3.2-5.2); Albumin/Globulin Ratio 1.7 (1-3); Alkaline Phosphatase 383 U/L (35-149); Blood Urea Nitrogen 13 mg/dL (6-24); CO2 Carbon Dioxide 26 mmol/L (22-32); Calcium 9.3 mg/dL (8.6-10.3); Chloride 108 mmol/L (101-111); Globulin 2.2 g/dL (2-4); Glucose 102 mg/dL (70-100); Magnesium 2.1 mg/dL (1.9-2.7); Sodium 142 mmol/L (135-145); Total Protein 5.9 g/dL (6.4-8.9); eGFR CKD-EPI 54.2 (>60)
[2021-11-14 06:28] LABS: Anion Gap 8 mmol/L (2-11)
[2021-11-14 06:40] LABS: ALT 648 U/L (7-52)
[2021-11-14] MEDS ORDERED: Midazolam 2 mg/2 ml VIAL 1 mg/ml 2 ml VIAL (2 mg) ONE ×2 (13:53→15:59)
[2021-11-14] MEDS ORDERED: fentaNYL 100 mcg/2 ml 50 MCG/ML VIAL ONE ×2 (13:53→15:57)
[2021-11-14] MEDS ORDERED: Iodixanol (CONTRAST) 320 MG/ML 100 ML SDV IV ONE (15:24)
[2021-11-14] MEDS: Heparin 5000 UNITS/ML 1 mL VIAL SUBCUT SCH (22:02)
[2021-11-15 05:43] LABS: Hematocrit 35 % (42-52); Hemoglobin 11.8 g/dL (14.0-18.0); Mean Corpuscular HGB Conc 33 g/dL (31-36); Mean Corpuscular Hemoglobin 30 pg (27-31); Mean Corpuscular Volume 91 fL (80-94); Mean Platelet Volume 9.5 fL (7.4-10.4); Platelet Count 207 10^3/uL (150-450); Red Blood Count 3.91 10^6 /uL (4.18-5.48); Red Cell Distribution Width 18 % (10-15); White Blood Count 5.9 10^3/uL (3.5-10.8)
[2021-11-15] MEDS: Heparin 5000 UNITS/ML 1 mL VIAL SUBCUT SCH ×2 (06:01→12:53)
[2021-11-15] MEDS: ZOSYN 3.375 GM Q8H per EXTENDED INFUSION IV SCH (06:01)
[2021-11-15 06:10] LABS: Albumin 3.6 g/dL (3.2-5.2); Albumin/Globulin Ratio 1.6 (1-3); Alkaline Phosphatase 348 U/L (35-149); Blood Urea Nitrogen 15 mg/dL (6-24); CO2 Carbon Dioxide 24 mmol/L (22-32); Calcium 8.6 mg/dL (8.6-10.3); Chloride 110 mmol/L (101-111); Globulin 2.3 g/dL (2-4); Glucose 109 mg/dL (70-100); Sodium 143 mmol/L (135-145); Total Protein 5.9 g/dL (6.4-8.9); eGFR CKD-EPI 75.2 (>60)
[2021-11-15 06:12] LABS: Anion Gap 9 mmol/L (2-11)
[2021-11-15 06:28] LABS: ALT 616 U/L (7-52)
[2021-11-15 07:18] LABS: Magnesium 1.9 mg/dL (1.9-2.7)
[2021-11-15] MEDS ORDERED: Heparin 5000 UNITS/ML 1 mL VIAL SUBCUT ONE (21:00)
[2021-11-16 06:15] LABS: Albumin 3.7 g/dL (3.2-5.2); Albumin/Globulin Ratio 1.5 (1-3); Calcium 9.1 mg/dL (8.6-10.3); Globulin 2.5 g/dL (2-4); Magnesium 1.8 mg/dL (1.9-2.7); Total Bilirubin 4.1 mg/dL (0.2-1.0); Total Protein 6.2 g/dL (6.4-8.9); eGFR CKD-EPI 87.7 (>60)
[2021-11-16 06:26] LABS: Carcinoembryonic Antigen 2.8 ng/mL (0.1-5.0)
[2021-11-16] MEDS ORDERED: Magnesium Sulfate IV 3 GM in NS 0.9% 100 ml BAG 100 ML IVPB ONE (06:34)
[2021-11-16] MEDS ORDERED: Magnesium Sulfate 1 GM IV 1 GM/100 ML BAG IV ONE (06:45)
[2021-11-16] MEDS ORDERED: Magnesium Sulfate 2 GM IV (Premix) IVPB ONE (07:15)
[2021-11-16] MEDS ORDERED: fentaNYL 100 mcg/2 ml 50 MCG/ML VIAL ONE (11:27)
[2021-11-16 14:49] VITALS: BP 141/122
== END 2021-11-16 17:52 | disposition home or self-care (01) | DRG 445 ==
LOC: ED 08:33 → EDHOLD 14:50 → SUATTDRO 14:50 → EDHOLD 17:32 → SSU 17:45
PROVIDERS: ADMIT Student in an Organized Health Care Education/Training Program; ATTEND Hospitalist

== ENCOUNTER 2021-12-10 10:49 | Inpatient (IN) ==
[2021-12-10] MEDS ORDERED: Zosyn per Pharmacy NOTE FOLLOW UP SCH (12:00)
[2021-12-10] MEDS ORDERED: HYDROmorphone 1 MG/1 ML SYRINGE ONE (12:21)
[2021-12-10] MEDS ORDERED: HYDROmorphone 1 MG/1 ML SYRINGE IV SCH (13:00)
[2021-12-10] MEDS ORDERED: Lorazepam PYXIS KEY ONE (13:27)
[2021-12-10] MEDS ORDERED: LORazepam 2 mg VIAL 1 ml ONE (13:27)
[2021-12-10 13:42] LABS: ABS Basophils 0.1 10^3/ul (0-0.2); ABS Eosinophils 0.1 10^3/ul (0-0.6); ABS Lymphocytes 1.2 10^3/ul (1.0-4.8); ABS Monocytes 0.6 10^3/ul (0-0.8); ABS Neutrophils 6.9 10^3/ul (1.5-7.7); Eosinophil % 0.8 %; Hematocrit 35 % (42-52); Lymphocyte % 13.9 %; Mean Corpuscular HGB Conc 34 g/dL (31-36); Mean Corpuscular Hemoglobin 30 pg (27-31); Mean Corpuscular Volume 88 fL (80-94); Mean Platelet Volume 8.8 fL (7.4-10.4); Platelet Count 283 10^3/uL (150-450); Red Blood Count 3.98 10^6 /uL (4.18-5.48); Red Cell Distribution Width 15 % (10-15); White Blood Count 8.9 10^3/uL (3.5-10.8)
[2021-12-10 13:49] LABS: Activated Partial Thrombo Time 24.8 seconds (26.0-38.0); INR 1.54 (0.86-1.15)
[2021-12-10 13:57] LABS: Albumin 4.1 g/dL (3.2-5.2); Calcium 10.1 mg/dL (8.6-10.3); Total Bilirubin 1.4 mg/dL (0.2-1.0)
[2021-12-10 14:03] LABS: Albumin/Globulin Ratio 1.1 (1-3); Globulin 3.8 g/dL (2-4); Total Protein 7.9 g/dL (6.4-8.9); eGFR CKD-EPI 65.6 (>60)
[2021-12-10] MEDS ORDERED: ZOSYN 3.375 GM x ONE DOSE over 30 miuntes IV (16:45)
[2021-12-10] MEDS: Enoxaparin 40 MG/0.4 ML SYR SUBCUT SCH ×2 (17:08→17:13)
[2021-12-10] MEDS: HYDROmorphone 1 MG/1 ML SYRINGE IV SCH ×5 (17:09→23:48)
[2021-12-10] MEDS: NS 0.9% 1000 ml BAG 1,000 ML IV SCH (17:10)
[2021-12-10] MEDS: Ondansetron 4 mg VIAL 2 MG/ML 2 ml VIAL IV PRN ×2 (17:12→21:58)
[2021-12-10] MEDS: ZOSYN 3.375 GM Q8H per EXTENDED INFUSION IV SCH (23:47)
[2021-12-11] MEDS: HYDROmorphone 1 MG/1 ML SYRINGE IV SCH ×12 (02:23→23:18)
[2021-12-11] MEDS: NS 0.9% 1000 ml BAG 1,000 ML IV SCH ×2 (02:55→16:08)
[2021-12-11 06:40] LABS: Albumin 3.6 g/dL (3.2-5.2); Albumin/Globulin Ratio 1.3 (1-3); Calcium 8.9 mg/dL (8.6-10.3); Globulin 2.8 g/dL (2-4); Potassium 3.9 mmol/L (3.5-5.0); Total Bilirubin 1.6 mg/dL (0.2-1.0); Total Protein 6.4 g/dL (6.4-8.9); eGFR CKD-EPI 49.1 (>60)
[2021-12-11 06:41] LABS: ABS Eosinophils 0.1 10^3/ul (0-0.6); ABS Monocytes 0.4 10^3/ul (0-0.8); ABS Neutrophils 3.7 10^3/ul (1.5-7.7); Eosinophil % 2.4 %; Hematocrit 30 % (42-52); Lymphocyte % 18.3 %; Mean Corpuscular HGB Conc 33 g/dL (31-36); Mean Corpuscular Hemoglobin 30 pg (27-31); Mean Corpuscular Volume 91 fL (80-94); Mean Platelet Volume 9.1 fL (7.4-10.4); Platelet Count 227 10^3/uL (150-450); Red Cell Distribution Width 16 % (10-15); White Blood Count 5.2 10^3/uL (3.5-10.8)
[2021-12-11] MEDS: ZOSYN 3.375 GM Q8H per EXTENDED INFUSION IV SCH ×3 (07:43→23:18)
[2021-12-11] MEDS: Ondansetron 4 mg VIAL 2 MG/ML 2 ml VIAL IV PRN ×3 (09:59→20:15)
[2021-12-11] MEDS ORDERED: fentaNYL 100 mcg/2 ml 50 MCG/ML VIAL ONE ×2 (13:14→13:41)
[2021-12-11] MEDS: Enoxaparin 40 MG/0.4 ML SYR SUBCUT SCH (21:18)
[2021-12-12] MEDS: HYDROmorphone 1 MG/1 ML SYRINGE IV SCH ×12 (01:10→23:20)
[2021-12-12] MEDS: NS 0.9% 1000 ml BAG 1,000 ML IV SCH ×2 (03:05→16:56)
[2021-12-12] MEDS: ZOSYN 3.375 GM Q8H per EXTENDED INFUSION IV SCH ×3 (08:23→23:20)
[2021-12-12 10:34] LABS: ABS Eosinophils 0.2 10^3/ul (0-0.6); ABS Lymphocytes 0.7 10^3/ul (1.0-4.8); ABS Monocytes 0.4 10^3/ul (0-0.8); ABS Neutrophils 3.7 10^3/ul (1.5-7.7); Eosinophil % 3.3 %; Hematocrit 27 % (42-52); Hemoglobin 9.4 g/dL (14.0-18.0); Lymphocyte % 13.8 %; Mean Corpuscular HGB Conc 35 g/dL (31-36); Mean Corpuscular Hemoglobin 31 pg (27-31); Mean Corpuscular Volume 88 fL (80-94); Mean Platelet Volume 8.3 fL (7.4-10.4); Platelet Count 220 10^3/uL (150-450); Red Blood Count 3.09 10^6 /uL (4.18-5.48); Red Cell Distribution Width 15 % (10-15); White Blood Count 4.9 10^3/uL (3.5-10.8)
[2021-12-12] MEDS: Ondansetron 4 mg VIAL 2 MG/ML 2 ml VIAL IV PRN ×3 (10:40→17:52)
[2021-12-12 10:43] LABS: Albumin 3.1 g/dL (3.2-5.2); Albumin/Globulin Ratio 1.2 (1-3); Calcium 8.6 mg/dL (8.6-10.3); Globulin 2.5 g/dL (2-4); Potassium 4.3 mmol/L (3.5-5.0); Total Bilirubin 2.9 mg/dL (0.2-1.0); Total Protein 5.6 g/dL (6.4-8.9); eGFR CKD-EPI 55.6 (>60)
[2021-12-12 10:59] LABS: Rapid COVID-19 Molecular Undetected (Undetected)
[2021-12-12] MEDS ORDERED: Ondansetron 4 mg VIAL 2 MG/ML 2 ml VIAL IV ONE (18:00)
[2021-12-12] MEDS: Enoxaparin 40 MG/0.4 ML SYR SUBCUT SCH (20:43)
[2021-12-13 00:20] VITALS: BP 132/71
[2021-12-13] MEDS: HYDROmorphone 1 MG/1 ML SYRINGE IV SCH (01:28)
== END 2021-12-13 01:40 | disposition short-term general hospital (02) | DRG 919 ==
LOC: CHOA 10:49 → SSU 16:19
PROVIDERS: ADMIT Internal Medicine Medical Oncology; ATTEND Internal Medicine Medical Oncology

== ENCOUNTER 2022-01-07 15:37 | Inpatient (IN) ==
[2022-01-07] MEDS ORDERED: Morphine 4 MG/ML VIAL (1 ml) IV ONE (16:27)
[2022-01-07] MEDS ORDERED: Ondansetron 4 mg VIAL 2 MG/ML 2 ml VIAL IV ONE (16:27)
[2022-01-07] MEDS ORDERED: Lactated Ringers 1000 ml BAG 1,000 ML IV ONE (16:27)
[2022-01-07 16:41] LABS: ABS Basophils 0.1 10^3/ul (0-0.2); ABS Eosinophils 0.4 10^3/ul (0-0.6); ABS Lymphocytes 0.6 10^3/ul (1.0-4.8); ABS Monocytes 0.4 10^3/ul (0-0.8); ABS Neutrophils 5.6 10^3/ul (1.5-7.7); Eosinophil % 6.2 %; Hematocrit 34 % (42-52); Hemoglobin 11.4 g/dL (14.0-18.0); Lymphocyte % 8.9 %; Mean Corpuscular HGB Conc 33 g/dL (31-36); Mean Corpuscular Hemoglobin 30 pg (27-31); Mean Corpuscular Volume 89 fL (80-94); Platelet Count 359 10^3/uL (150-450); Red Blood Count 3.85 10^6 /uL (4.18-5.48); Red Cell Distribution Width 16 % (10-15); White Blood Count 7.2 10^3/uL (3.5-10.8)
[2022-01-07 17:28] LABS: Albumin 3.4 g/dL (3.2-5.2); Albumin/Globulin Ratio 1.1 (1-3); C Reactive Protein 118.52 mg/L (<8.01); Calcium 8.6 mg/dL (8.6-10.3); Globulin 3.1 g/dL (2-4); Potassium 3.5 mmol/L (3.5-5.0); Total Bilirubin 1.6 mg/dL (0.2-1.0); Total Protein 6.5 g/dL (6.4-8.9); eGFR CKD-EPI 101.9 (>60)
[2022-01-07 18:28] LABS: Urine Appearance Cloudy; Urine Bilirubin Negative (Negative); Urine Blood 2+ (Negative); Urine Color Amber; Urine Glucose Negative (Negative); Urine Ketones 2+ (Negative); Urine Nitrite Negative (Negative); Urine Protein 2+(100 mg/dL) (Negative); Urine Specific Gravity 1.026 (1.002-1.030); Urine Urobilinogen Positive (Negative)
[2022-01-07 18:31] LABS: Urine Bacteria Absent (Absent); Urine Red Blood Cell 3+(>10/hpf) (Absent); Urine Squamous Epithelial Cell Present (Absent); Urine Transitional Epithelial Present (Absent); Urine White Blood Cell 3+(>20/hpf) (Absent)
[2022-01-07] MEDS ORDERED: Piperacillin/Tazobac ADVAN 3.375 GM in NS 0.9% 100 ml BAG 100 ML IV ONE (18:43)
[2022-01-07] MEDS ORDERED: Senna TAB 8.6 mg TAB PO PRN (19:44)
[2022-01-07] MEDS ORDERED: Methylnaltrexone SQ (NF) 12 MG/0.6 ML VIAL SUBCUT ONE (19:44)
[2022-01-07] MEDS ORDERED: Sodium Phosphate ADULT ENEMA 133 ML BTL PR PRN (19:44)
[2022-01-07] MEDS ORDERED: Zosyn per Pharmacy NOTE FOLLOW UP SCH (20:00)
[2022-01-07] MEDS: Morphine ER 30 mg TAB ** extended release PO SCH (22:09)
[2022-01-07] MEDS: HYDROmorphone 1 MG/1 ML SYRINGE IV SLOW PU PRN (22:13)
[2022-01-08] MEDS ORDERED: ZOSYN 3.375 GM x ONE DOSE over 30 miuntes IV ×2 (01:00→08:00)
[2022-01-08] MEDS: HYDROmorphone 1 MG/1 ML SYRINGE IV SLOW PU PRN ×6 (01:59→23:24)
[2022-01-08] MEDS: Lactated Ringers 1000 ml BAG 1,000 ML IV SCH ×2 (03:00→16:22)
[2022-01-08 05:27] LABS: ABS Basophils 0.1 10^3/ul (0-0.2); ABS Eosinophils 1.1 10^3/ul (0-0.6); ABS Lymphocytes 1.2 10^3/ul (1.0-4.8); ABS Monocytes 0.6 10^3/ul (0-0.8); ABS Neutrophils 3.8 10^3/ul (1.5-7.7); Eosinophil % 15.8 %; Hematocrit 29 % (42-52); Hemoglobin 9.2 g/dL (14.0-18.0); Lymphocyte % 17.5 %; Mean Corpuscular HGB Conc 32 g/dL (31-36); Mean Corpuscular Hemoglobin 28 pg (27-31); Mean Corpuscular Volume 88 fL (80-94); Mean Platelet Volume 7.6 fL (7.4-10.4); Platelet Count 325 10^3/uL (150-450); Red Blood Count 3.24 10^6 /uL (4.18-5.48); Red Cell Distribution Width 16 % (10-15); White Blood Count 6.8 10^3/uL (3.5-10.8)
[2022-01-08 06:16] LABS: Albumin 2.9 g/dL (3.2-5.2); Albumin/Globulin Ratio 1.1 (1-3); Calcium 8.5 mg/dL (8.6-10.3); Globulin 2.7 g/dL (2-4); Magnesium 1.6 mg/dL (1.9-2.7); Phosphorus 4.6 mg/dL (2.5-5.0); Potassium 3.8 mmol/L (3.5-5.0); Total Protein 5.6 g/dL (6.4-8.9); eGFR CKD-EPI 97.4 (>60)
[2022-01-08] MEDS: Morphine ER 30 mg TAB ** extended release PO SCH ×3 (06:19→22:08)
[2022-01-08] MEDS ORDERED: Magnesium Sulfate 2 gm BAG 2 GM/50 ML BAG IVPB ONE (06:28)
[2022-01-08 07:56] LABS: INR 1.33 (0.86-1.15)
[2022-01-08] MEDS ORDERED: ZOSYN 3.375 GM Q8H per EXTENDED INFUSION IV SCH (09:00)
[2022-01-08] MEDS: ZOSYN 3.375 GM Q8H per EXTENDED INFUSION IV SCH ×3 (09:28→17:10)
[2022-01-08] MEDS: Magnesium Hydroxide LIQ 30 ML UDC PO PRN (09:47)
[2022-01-08] MEDS: NS 0.9% 1000 ml BAG 1,000 ML IV SCH (22:08)
[2022-01-09] MEDS: ZOSYN 3.375 GM Q8H per EXTENDED INFUSION IV SCH ×3 (00:54→17:54)
[2022-01-09] MEDS: HYDROmorphone 1 MG/1 ML SYRINGE IV SLOW PU PRN ×5 (02:41→21:23)
[2022-01-09 05:21] LABS: ABS Basophils 0.1 10^3/ul (0-0.2); ABS Lymphocytes 1.2 10^3/ul (1.0-4.8); ABS Monocytes 0.6 10^3/ul (0-0.8); ABS Neutrophils 2.9 10^3/ul (1.5-7.7); Hematocrit 29 % (42-52); Hemoglobin 9.1 g/dL (14.0-18.0); Lymphocyte % 20.9 %; Mean Corpuscular HGB Conc 32 g/dL (31-36); Mean Corpuscular Hemoglobin 28 pg (27-31); Mean Corpuscular Volume 89 fL (80-94); Mean Platelet Volume 7.7 fL (7.4-10.4); Platelet Count 316 10^3/uL (150-450); Red Blood Count 3.24 10^6 /uL (4.18-5.48); Red Cell Distribution Width 16 % (10-15); White Blood Count 5.8 10^3/uL (3.5-10.8)
[2022-01-09] MEDS: Morphine ER 30 mg TAB ** extended release PO SCH ×3 (05:33→21:30)
[2022-01-09 05:44] LABS: Albumin 2.7 g/dL (3.2-5.2); Calcium 8.3 mg/dL (8.6-10.3); Globulin 2.6 g/dL (2-4); Potassium 3.6 mmol/L (3.5-5.0); Total Bilirubin 0.8 mg/dL (0.2-1.0); Total Protein 5.3 g/dL (6.4-8.9); eGFR CKD-EPI 98.9 (>60)
[2022-01-09 07:44] LABS: Magnesium 1.8 mg/dL (1.9-2.7)
[2022-01-09] MEDS: NS 0.9% 1000 ml BAG 1,000 ML IV SCH (07:53)
[2022-01-09 08:34] LABS: C Reactive Protein 79.28 mg/L (<8.01)
[2022-01-09] MEDS: Ondansetron 4 mg VIAL 2 MG/ML 2 ml VIAL IV PRN (12:38)
[2022-01-09] MEDS: Polyethylene Glycol 3350 17 GM PACKET PO PRN (12:38)
[2022-01-09 14:04] LABS: PSA Screening Total 20.841 ng/mL (0-4.000)
[2022-01-09 14:13] LABS: Ferritin 124.6 ng/mL (24-336)
[2022-01-09] MEDS ORDERED: Morphine 2 MG/ML SYRINGE IV PRN (17:54)
[2022-01-09] MEDS: Magnesium Hydroxide LIQ 30 ML UDC PO PRN (21:31)
[2022-01-10] MEDS: ZOSYN 3.375 GM Q8H per EXTENDED INFUSION IV SCH ×3 (01:33→17:09)
[2022-01-10] MEDS: Morphine ER 30 mg TAB ** extended release PO SCH ×2 (05:04→13:40)
[2022-01-10] MEDS ORDERED: Sterile Water for Inj 10 ML ONE (06:48)
[2022-01-10] MEDS ORDERED: Succinylcholine 200 mg VIAL 20 mg/ml 10 ml VIAL (200 mg) ONE (06:48)
[2022-01-10] MEDS ORDERED: Ondansetron 4 mg VIAL 2 MG/ML 2 ml VIAL ONE (06:48)
[2022-01-10] MEDS ORDERED: Dexamethasone IV 4 MG/ML VIAL 1 ml VIAL ONE (06:48)
[2022-01-10] MEDS ORDERED: Propofol 10 MG/ML 20 ML BTL ONE (06:48)
[2022-01-10] MEDS ORDERED: Midazolam 5 mg/5 ml VIAL 1 mg/ml 5 ml VIAL (5 mg) ONE (07:14)
[2022-01-10] MEDS ORDERED: fentaNYL 250 mcg/5 ml 50 MCG/ML 5 ml VIAL (250 MCG) ONE (07:15)
[2022-01-10] MEDS ORDERED: Ondansetron 4 mg VIAL 2 MG/ML 2 ml VIAL IV PRN (07:21)
[2022-01-10] MEDS ORDERED: Naloxone 0.4 mg VIAL 0.4 mg/ml 1 ml VIAL IV PRN (07:21)
[2022-01-10] MEDS ORDERED: fentaNYL 100 mcg/2 ml 50 MCG/ML VIAL IV PRN (07:21)
[2022-01-10] MEDS: Magnesium Hydroxide LIQ 30 ML UDC PO PRN (10:51)
[2022-01-10] MEDS: HYDROmorphone 1 MG/1 ML SYRINGE IV SLOW PU PRN ×4 (10:51→21:55)
[2022-01-11] MEDS: Morphine ER 30 mg TAB ** extended release PO SCH ×4 (00:30→20:27)
[2022-01-11] MEDS: ZOSYN 3.375 GM Q8H per EXTENDED INFUSION IV SCH ×3 (01:43→17:10)
[2022-01-11] MEDS: Magnesium Hydroxide LIQ 30 ML UDC PO PRN (01:44)
[2022-01-11] MEDS: HYDROmorphone 1 MG/1 ML SYRINGE IV SLOW PU PRN ×5 (06:04→22:18)
[2022-01-11 06:27] LABS: ABS Lymphocytes 0.6 10^3/ul (1.0-4.8); ABS Monocytes 0.6 10^3/ul (0-0.8); ABS Neutrophils 8.9 10^3/ul (1.5-7.7); Hematocrit 29 % (42-52); Hemoglobin 9.8 g/dL (14.0-18.0); Mean Corpuscular HGB Conc 33 g/dL (31-36); Mean Corpuscular Hemoglobin 29 pg (27-31); Mean Corpuscular Volume 88 fL (80-94); Platelet Count 324 10^3/uL (150-450); Red Blood Count 3.35 10^6 /uL (4.18-5.48); Red Cell Distribution Width 16 % (10-15); White Blood Count 10.1 10^3/uL (3.5-10.8)
[2022-01-11 06:57] LABS: Calcium 8.7 mg/dL (8.6-10.3); Magnesium 2.1 mg/dL (1.9-2.7); Potassium 4.3 mmol/L (3.5-5.0); eGFR CKD-EPI 58.2 (>60)
[2022-01-11] MEDS ORDERED: Lactated Ringers 1000 ml BAG 1,000 ML IV SCH (08:00)
[2022-01-11] MEDS: NS 0.9% 1000 ml BAG 1,000 ML IV SCH (10:04)
[2022-01-11 12:52] LABS: Haptoglobin <14 mg/dL (30 - 200)
[2022-01-11 13:33] LABS: CA 19-9 144 U/mL (<35)
[2022-01-11] MEDS: Enoxaparin 40 MG/0.4 ML SYR SUBCUT SCH (16:59)
[2022-01-12] MEDS: HYDROmorphone 1 MG/1 ML SYRINGE IV SLOW PU PRN ×4 (01:15→16:18)
[2022-01-12] MEDS: ZOSYN 3.375 GM Q8H per EXTENDED INFUSION IV SCH ×2 (01:15→10:32)
[2022-01-12] MEDS: NS 0.9% 1000 ml BAG 1,000 ML IV SCH (01:16)
[2022-01-12 05:11] LABS: ABS Basophils 0.1 10^3/ul (0-0.2); ABS Eosinophils 0.3 10^3/ul (0-0.6); ABS Lymphocytes 0.7 10^3/ul (1.0-4.8); ABS Monocytes 0.6 10^3/ul (0-0.8); ABS Neutrophils 8.8 10^3/ul (1.5-7.7); Eosinophil % 3.3 %; Hematocrit 28 % (42-52); Hemoglobin 9.4 g/dL (14.0-18.0); Lymphocyte % 6.8 %; Mean Corpuscular HGB Conc 33 g/dL (31-36); Mean Corpuscular Hemoglobin 29 pg (27-31); Mean Corpuscular Volume 88 fL (80-94); Mean Platelet Volume 7.9 fL (7.4-10.4); Platelet Count 304 10^3/uL (150-450); Red Blood Count 3.23 10^6 /uL (4.18-5.48); Red Cell Distribution Width 16 % (10-15); White Blood Count 10.5 10^3/uL (3.5-10.8)
[2022-01-12] MEDS: Ondansetron 4 mg VIAL 2 MG/ML 2 ml VIAL IV PRN (05:38)
[2022-01-12] MEDS: Morphine ER 30 mg TAB ** extended release PO SCH ×3 (05:56→21:06)
[2022-01-12 06:22] LABS: Albumin 3.1 g/dL (3.2-5.2); Albumin/Globulin Ratio 1.1 (1-3); Calcium 8.4 mg/dL (8.6-10.3); Globulin 2.8 g/dL (2-4); Potassium 3.7 mmol/L (3.5-5.0); Total Bilirubin 0.9 mg/dL (0.2-1.0); Total Protein 5.9 g/dL (6.4-8.9); eGFR CKD-EPI 62.1 (>60)
[2022-01-12] MEDS: cefTRIAXone 1 gm/50 mL D5W 1 GM/50 ML BAG IV SCH (10:22)
[2022-01-12] MEDS: Enoxaparin 40 MG/0.4 ML SYR SUBCUT SCH (21:08)
[2022-01-13] MEDS: HYDROmorphone 1 MG/1 ML SYRINGE IV SLOW PU PRN ×5 (02:43→22:39)
[2022-01-13] MEDS: Ondansetron 4 mg VIAL 2 MG/ML 2 ml VIAL IV PRN ×2 (02:43→13:21)
[2022-01-13 05:01] LABS: ABS Eosinophils 0.8 10^3/ul (0-0.6); ABS Lymphocytes 0.6 10^3/ul (1.0-4.8); ABS Monocytes 0.5 10^3/ul (0-0.8); ABS Neutrophils 7.3 10^3/ul (1.5-7.7); Eosinophil % 8.9 %; Hematocrit 26 % (42-52); Hemoglobin 8.5 g/dL (14.0-18.0); Lymphocyte % 6.2 %; Mean Corpuscular HGB Conc 32 g/dL (31-36); Mean Corpuscular Hemoglobin 28 pg (27-31); Mean Corpuscular Volume 88 fL (80-94); Mean Platelet Volume 8.2 fL (7.4-10.4); Platelet Count 286 10^3/uL (150-450); Red Blood Count 2.99 10^6 /uL (4.18-5.48); Red Cell Distribution Width 16 % (10-15); White Blood Count 9.2 10^3/uL (3.5-10.8)
[2022-01-13 05:17] LABS: Potassium 3.6 mmol/L (3.5-5.0)
[2022-01-13 05:18] LABS: Albumin 2.6 g/dL (3.2-5.2); Calcium 8.2 mg/dL (8.6-10.3); Globulin 2.7 g/dL (2-4); Total Bilirubin 0.7 mg/dL (0.2-1.0); Total Protein 5.3 g/dL (6.4-8.9); eGFR CKD-EPI 101.7 (>60)
[2022-01-13] MEDS: Morphine ER 30 mg TAB ** extended release PO SCH ×2 (06:21→19:40)
[2022-01-13] MEDS: cefTRIAXone 1 gm/50 mL D5W 1 GM/50 ML BAG IV SCH (10:59)
[2022-01-13] MEDS: Magnesium Hydroxide LIQ 30 ML UDC PO PRN (12:17)
[2022-01-13] MEDS: Enoxaparin 40 MG/0.4 ML SYR SUBCUT SCH (19:41)
[2022-01-14] MEDS: HYDROmorphone 1 MG/1 ML SYRINGE IV SLOW PU PRN ×4 (06:04→18:41)
[2022-01-14] MEDS: Ondansetron 4 mg VIAL 2 MG/ML 2 ml VIAL IV PRN ×2 (07:58→21:02)
[2022-01-14] MEDS ORDERED: CMCS:Saliva Substitute (NF) 1 SPRAY BTL MT PRN (08:33)
[2022-01-14] MEDS: Prochlorperazine 5 mg/ml 2 ml VIAL (10 mg) IV PRN (08:42)
[2022-01-14] MEDS: Morphine ER 30 mg TAB ** extended release PO SCH ×2 (08:42→20:51)
[2022-01-14] MEDS: Magnesium Hydroxide LIQ 30 ML UDC PO PRN ×2 (08:42→21:02)
[2022-01-14] MEDS: cefTRIAXone 1 gm/50 mL D5W 1 GM/50 ML BAG IV SCH (09:34)
[2022-01-14] MEDS: Enoxaparin 40 MG/0.4 ML SYR SUBCUT SCH (20:55)
[2022-01-15] MEDS: HYDROmorphone 1 MG/1 ML SYRINGE IV SLOW PU PRN ×4 (00:50→21:17)
[2022-01-15] MEDS: Morphine ER 30 mg TAB ** extended release PO SCH (09:03)
[2022-01-15 16:04] LABS: Albumin 2.6 g/dL (3.2-5.2); Albumin/Globulin Ratio 0.9 (1-3); Calcium 8.3 mg/dL (8.6-10.3); Potassium 3.8 mmol/L (3.5-5.0); Total Bilirubin 0.6 mg/dL (0.2-1.0); Total Protein 5.6 g/dL (6.4-8.9); eGFR CKD-EPI 101.2 (>60)
[2022-01-15] MEDS: cefTRIAXone 1 gm/50 mL D5W 1 GM/50 ML BAG IV SCH (16:39)
[2022-01-15] MEDS: Morphine ER 15 mg TAB ** extended release PO SCH (18:07)
[2022-01-15] MEDS: Enoxaparin 40 MG/0.4 ML SYR SUBCUT SCH (20:56)
[2022-01-15] MEDS ORDERED: Senna TAB 8.6 mg TAB PO SCH (21:00)
[2022-01-16] MEDS: Morphine ER 15 mg TAB ** extended release PO SCH (02:47)
[2022-01-16] MEDS: HYDROmorphone 1 MG/1 ML SYRINGE IV SLOW PU PRN ×6 (02:52→23:06)
[2022-01-16] MEDS ORDERED: Naloxone 0.4 mg VIAL 0.4 mg/ml 1 ml VIAL IV PUSH PRN (08:13)
[2022-01-16] MEDS ORDERED: fentaNYL PATCH 25 MCG/HR 1 PATCH TRANSDERM SCH (09:00)
[2022-01-16] MEDS: cefTRIAXone 1 gm/50 mL D5W 1 GM/50 ML BAG IV SCH (12:28)
[2022-01-16] MEDS: fentaNYL Patch Check Q Shift NOTE FOLLOW UP SCH (18:44)
[2022-01-16] MEDS: Polyethylene Glycol 3350 17 GM PACKET PO PRN (20:18)
[2022-01-16] MEDS: Enoxaparin 40 MG/0.4 ML SYR SUBCUT SCH (20:19)
[2022-01-16] MEDS: Senna TAB 8.6 mg TAB PO SCH (20:19)
[2022-01-16] MEDS: Magnesium Hydroxide LIQ 30 ML UDC PO SCH (20:19)
[2022-01-17] MEDS: HYDROmorphone 1 MG/1 ML SYRINGE IV SLOW PU PRN ×7 (02:23→22:13)
[2022-01-17 06:23] LABS: ABS Eosinophils 1.2 10^3/ul (0-0.6); ABS Lymphocytes 0.7 10^3/ul (1.0-4.8); ABS Monocytes 0.8 10^3/ul (0-0.8); ABS Neutrophils 4.8 10^3/ul (1.5-7.7); Eosinophil % 16.1 %; Hematocrit 27 % (42-52); Hemoglobin 8.7 g/dL (14.0-18.0); Lymphocyte % 9.2 %; Mean Corpuscular HGB Conc 33 g/dL (31-36); Mean Corpuscular Hemoglobin 29 pg (27-31); Mean Corpuscular Volume 88 fL (80-94); Mean Platelet Volume 6.5 fL (7.4-10.4); Platelet Count 348 10^3/uL (150-450); Red Blood Count 3.07 10^6 /uL (4.18-5.48); Red Cell Distribution Width 16 % (10-15); White Blood Count 7.6 10^3/uL (3.5-10.8)
[2022-01-17 07:06] LABS: Albumin 2.5 g/dL (3.2-5.2); Albumin/Globulin Ratio 0.8 (1-3); Calcium 8.2 mg/dL (8.6-10.3); Potassium 3.9 mmol/L (3.5-5.0); Total Bilirubin 0.6 mg/dL (0.2-1.0); Total Protein 5.5 g/dL (6.4-8.9); eGFR CKD-EPI 105.1 (>60)
[2022-01-17] MEDS: fentaNYL Patch Check Q Shift NOTE FOLLOW UP SCH ×2 (07:21→19:29)
[2022-01-17] MEDS: cefTRIAXone 1 gm/50 mL D5W 1 GM/50 ML BAG IV SCH (09:38)
[2022-01-17] MEDS: Magnesium Hydroxide LIQ 30 ML UDC PO SCH ×3 (09:39→20:44)
[2022-01-17] MEDS: Senna TAB 8.6 mg TAB PO SCH ×2 (09:39→20:43)
[2022-01-17 18:24] LABS: High Sensitivity Troponin 1 Hr 9 pg/mL (<20)
[2022-01-17] MEDS: Enoxaparin 40 MG/0.4 ML SYR SUBCUT SCH (20:44)
[2022-01-17 23:52] LABS: High Sensitivity Troponin 3 Hr 8 pg/mL (<20)
[2022-01-18] MEDS: Prochlorperazine 5 mg/ml 2 ml VIAL (10 mg) IV PRN ×2 (02:00→08:52)
[2022-01-18] MEDS: HYDROmorphone 1 MG/1 ML SYRINGE IV SLOW PU PRN ×4 (05:12→22:15)
[2022-01-18 05:59] LABS: ABS Basophils 0.1 10^3/ul (0-0.2); ABS Eosinophils 0.7 10^3/ul (0-0.6); ABS Lymphocytes 0.9 10^3/ul (1.0-4.8); ABS Monocytes 0.7 10^3/ul (0-0.8); ABS Neutrophils 4.7 10^3/ul (1.5-7.7); Eosinophil % 10.5 %; Hematocrit 26 % (42-52); Hemoglobin 8.8 g/dL (14.0-18.0); Lymphocyte % 12.2 %; Mean Corpuscular HGB Conc 34 g/dL (31-36); Mean Corpuscular Hemoglobin 29 pg (27-31); Mean Corpuscular Volume 87 fL (80-94); Mean Platelet Volume 6.8 fL (7.4-10.4); Platelet Count 386 10^3/uL (150-450); Red Blood Count 3.04 10^6 /uL (4.18-5.48); Red Cell Distribution Width 16 % (10-15)
[2022-01-18 06:26] LABS: Albumin 2.5 g/dL (3.2-5.2); Albumin/Globulin Ratio 0.8 (1-3); Calcium 8.4 mg/dL (8.6-10.3); Globulin 3.3 g/dL (2-4); Potassium 3.7 mmol/L (3.5-5.0); Total Bilirubin 0.6 mg/dL (0.2-1.0); Total Protein 5.8 g/dL (6.4-8.9); eGFR CKD-EPI 106.8 (>60)
[2022-01-18] MEDS: fentaNYL Patch Check Q Shift NOTE FOLLOW UP SCH ×2 (07:03→19:35)
[2022-01-18] MEDS: Senna TAB 8.6 mg TAB PO SCH ×2 (08:52→22:11)
[2022-01-18] MEDS: Magnesium Hydroxide LIQ 30 ML UDC PO SCH ×2 (08:52→22:11)
[2022-01-18] MEDS: cefTRIAXone 1 gm/50 mL D5W 1 GM/50 ML BAG IV SCH (09:06)
[2022-01-18] MEDS: fentaNYL PATCH 50 MCG/HR 1 PATCH TRANSDERM SCH (19:33)
[2022-01-18] MEDS: Enoxaparin 40 MG/0.4 ML SYR SUBCUT SCH (22:09)
[2022-01-19] MEDS: HYDROmorphone 1 MG/1 ML SYRINGE IV SLOW PU PRN ×6 (01:41→22:42)
[2022-01-19] MEDS: fentaNYL Patch Check Q Shift NOTE FOLLOW UP SCH ×2 (06:41→18:54)
[2022-01-19 07:05] LABS: ABS Basophils 0.1 10^3/ul (0-0.2); ABS Eosinophils 0.3 10^3/ul (0-0.6); ABS Lymphocytes 0.9 10^3/ul (1.0-4.8); ABS Monocytes 0.6 10^3/ul (0-0.8); ABS Neutrophils 5.3 10^3/ul (1.5-7.7); Eosinophil % 4.8 %; Hematocrit 32 % (42-52); Hemoglobin 10.7 g/dL (14.0-18.0); Lymphocyte % 13.1 %; Mean Corpuscular HGB Conc 34 g/dL (31-36); Mean Corpuscular Hemoglobin 29 pg (27-31); Mean Corpuscular Volume 87 fL (80-94); Mean Platelet Volume 6.6 fL (7.4-10.4); Platelet Count 504 10^3/uL (150-450); Red Blood Count 3.68 10^6 /uL (4.18-5.48); Red Cell Distribution Width 16 % (10-15); White Blood Count 7.2 10^3/uL (3.5-10.8)
[2022-01-19 07:27] LABS: eGFR CKD-EPI 105.7 (>60)
[2022-01-19] MEDS: Senna TAB 8.6 mg TAB PO SCH ×2 (09:42→22:36)
[2022-01-19] MEDS: cefTRIAXone 1 gm/50 mL D5W 1 GM/50 ML BAG IV SCH (09:44)
[2022-01-19] MEDS: Magnesium Hydroxide LIQ 30 ML UDC PO SCH ×2 (09:45→22:38)
[2022-01-19] MEDS: Prochlorperazine 5 mg/ml 2 ml VIAL (10 mg) IV PRN (13:22)
[2022-01-19] MEDS: Enoxaparin 40 MG/0.4 ML SYR SUBCUT SCH (22:38)
[2022-01-20] MEDS: HYDROmorphone 1 MG/1 ML SYRINGE IV SLOW PU PRN ×5 (02:26→21:49)
[2022-01-20 06:20] LABS: ABS Basophils 0.1 10^3/ul (0-0.2); ABS Eosinophils 0.4 10^3/ul (0-0.6); ABS Monocytes 0.6 10^3/ul (0-0.8); Eosinophil % 4.9 %; Hematocrit 29 % (42-52); Hemoglobin 9.9 g/dL (14.0-18.0); Lymphocyte % 12.9 %; Mean Corpuscular HGB Conc 34 g/dL (31-36); Mean Corpuscular Hemoglobin 29 pg (27-31); Mean Corpuscular Volume 86 fL (80-94); Mean Platelet Volume 6.6 fL (7.4-10.4); Platelet Count 573 10^3/uL (150-450); Red Blood Count 3.39 10^6 /uL (4.18-5.48); Red Cell Distribution Width 16 % (10-15); White Blood Count 8.1 10^3/uL (3.5-10.8)
[2022-01-20] MEDS: fentaNYL Patch Check Q Shift NOTE FOLLOW UP SCH ×2 (07:10→18:58)
[2022-01-20] MEDS: Senna TAB 8.6 mg TAB PO SCH ×2 (07:28→21:51)
[2022-01-20] MEDS: Magnesium Hydroxide LIQ 30 ML UDC PO SCH ×2 (07:29→21:51)
[2022-01-20] MEDS: cefTRIAXone 1 gm/50 mL D5W 1 GM/50 ML BAG IV SCH (09:47)
[2022-01-20] MEDS: Polyethylene Glycol 3350 17 GM PACKET PO PRN (09:47)
[2022-01-20] MEDS ORDERED: Albuterol HFA INHALER 8 gm MDI INH ONE (10:00)
[2022-01-20] MEDS ORDERED: Albuterol HFA INHALER 8 gm MDI INH PRN (10:00)
[2022-01-20] MEDS ORDERED: Lactulose 30 ml UDC PO ONE (10:01)
[2022-01-20] MEDS: Nystatin SUSPENSION 100,000 UNITS/ML UDC SWISH SWAL SCH ×3 (12:42→21:50)
[2022-01-20] MEDS: Ondansetron 4 mg VIAL 2 MG/ML 2 ml VIAL IV PRN (18:35)
[2022-01-20] MEDS ORDERED: Acetaminophen IV 1 GM/100ML 100 ML IV PRN (18:46)
[2022-01-20] MEDS: Enoxaparin 40 MG/0.4 ML SYR SUBCUT SCH (21:50)
[2022-01-20] MEDS: Prochlorperazine 5 mg/ml 2 ml VIAL (10 mg) IV PRN (22:06)
[2022-01-21] MEDS: HYDROmorphone 1 MG/1 ML SYRINGE IV SLOW PU PRN ×5 (04:29→18:35)
[2022-01-21 05:20] LABS: Calcium 8.9 mg/dL (8.6-10.3); Potassium 4.4 mmol/L (3.5-5.0)
[2022-01-21 05:24] LABS: ABS Basophils 0.1 10^3/ul (0-0.2); ABS Eosinophils 0.2 10^3/ul (0-0.6); ABS Lymphocytes 1.2 10^3/ul (1.0-4.8); ABS Monocytes 0.6 10^3/ul (0-0.8); ABS Neutrophils 7.1 10^3/ul (1.5-7.7); Eosinophil % 2.1 %; Hematocrit 30 % (42-52); Hemoglobin 9.8 g/dL (14.0-18.0); Lymphocyte % 13.1 %; Mean Corpuscular HGB Conc 32 g/dL (31-36); Mean Corpuscular Hemoglobin 28 pg (27-31); Mean Corpuscular Volume 88 fL (80-94); Mean Platelet Volume 7.2 fL (7.4-10.4); Platelet Count 538 10^3/uL (150-450); Red Blood Count 3.46 10^6 /uL (4.18-5.48); Red Cell Distribution Width 16 % (10-15); White Blood Count 9.2 10^3/uL (3.5-10.8)
[2022-01-21 05:26] LABS: eGFR CKD-EPI 97.9 (>60)
[2022-01-21] MEDS: fentaNYL Patch Check Q Shift NOTE FOLLOW UP SCH ×2 (06:59→18:36)
[2022-01-21] MEDS: Nystatin SUSPENSION 100,000 UNITS/ML UDC SWISH SWAL SCH ×4 (08:06→21:34)
[2022-01-21] MEDS: Senna TAB 8.6 mg TAB PO SCH ×2 (08:06→21:27)
[2022-01-21] MEDS: Magnesium Hydroxide LIQ 30 ML UDC PO SCH ×2 (08:23→21:25)
[2022-01-21] MEDS: Acetaminophen IV 1 GM/100ML 100 ML IV PRN ×2 (10:20→21:44)
[2022-01-21] MEDS: cefTRIAXone 1 gm/50 mL D5W 1 GM/50 ML BAG IV SCH (10:21)
[2022-01-21] MEDS: Ondansetron 4 mg VIAL 2 MG/ML 2 ml VIAL IV PRN ×2 (12:17→19:44)
[2022-01-21] MEDS: Polyethylene Glycol 3350 17 GM PACKET PO SCH (18:00)
[2022-01-21] MEDS: fentaNYL PATCH 50 MCG/HR 1 PATCH TRANSDERM SCH (18:35)
[2022-01-21] MEDS: Enoxaparin 40 MG/0.4 ML SYR SUBCUT SCH (21:35)
[2022-01-22] MEDS: HYDROmorphone 1 MG/1 ML SYRINGE IV SLOW PU PRN ×7 (00:33→21:01)
[2022-01-22] MEDS: fentaNYL Patch Check Q Shift NOTE FOLLOW UP SCH ×2 (07:37→18:35)
[2022-01-22] MEDS: Senna TAB 8.6 mg TAB PO SCH ×2 (08:10→20:21)
[2022-01-22] MEDS: Polyethylene Glycol 3350 17 GM PACKET PO SCH ×2 (08:47→16:59)
[2022-01-22] MEDS: Magnesium Hydroxide LIQ 30 ML UDC PO SCH ×3 (08:47→20:21)
[2022-01-22] MEDS: Nystatin SUSPENSION 100,000 UNITS/ML UDC SWISH SWAL SCH ×4 (08:49→20:21)
[2022-01-22] MEDS: Enoxaparin 40 MG/0.4 ML SYR SUBCUT SCH (21:08)
[2022-01-23] MEDS: HYDROmorphone 1 MG/1 ML SYRINGE IV SLOW PU PRN ×7 (00:04→21:47)
[2022-01-23] MEDS: fentaNYL Patch Check Q Shift NOTE FOLLOW UP SCH ×2 (07:14→18:58)
[2022-01-23 07:49] LABS: High Sensitivity Troponin 1 Hr 7 pg/mL (<20)
[2022-01-23] MEDS: Nystatin SUSPENSION 100,000 UNITS/ML UDC SWISH SWAL SCH ×4 (08:46→21:24)
[2022-01-23] MEDS: Magnesium Hydroxide LIQ 30 ML UDC PO SCH ×2 (08:48→21:24)
[2022-01-23] MEDS: Senna TAB 8.6 mg TAB PO SCH ×2 (08:48→21:24)
[2022-01-23] MEDS: Polyethylene Glycol 3350 17 GM PACKET PO SCH (08:48)
[2022-01-23] MEDS: Ondansetron 4 mg VIAL 2 MG/ML 2 ml VIAL IV PRN ×2 (14:28→21:48)
[2022-01-23] MEDS: Prochlorperazine 5 mg/ml 2 ml VIAL (10 mg) IV PRN (17:51)
[2022-01-23] MEDS: Acetaminophen IV 1 GM/100ML 100 ML IV PRN (17:52)
[2022-01-23] MEDS: Enoxaparin 40 MG/0.4 ML SYR SUBCUT SCH (23:29)
[2022-01-24 05:16] LABS: ABS Basophils 0.1 10^3/ul (0-0.2); ABS Eosinophils 0.3 10^3/ul (0-0.6); ABS Lymphocytes 0.5 10^3/ul (1.0-4.8); ABS Monocytes 0.9 10^3/ul (0-0.8); ABS Neutrophils 7.6 10^3/ul (1.5-7.7); Eosinophil % 3.7 %; Hematocrit 27 % (42-52); Hemoglobin 8.8 g/dL (14.0-18.0); Lymphocyte % 5.7 %; Mean Corpuscular HGB Conc 33 g/dL (31-36); Mean Corpuscular Hemoglobin 28 pg (27-31); Mean Corpuscular Volume 86 fL (80-94); Mean Platelet Volume 6.5 fL (7.4-10.4); Platelet Count 623 10^3/uL (150-450); Red Blood Count 3.12 10^6 /uL (4.18-5.48); Red Cell Distribution Width 16 % (10-15); White Blood Count 9.4 10^3/uL (3.5-10.8)
[2022-01-24 06:07] LABS: Albumin 2.8 g/dL (3.2-5.2); Albumin/Globulin Ratio 0.8 (1-3); Calcium 8.8 mg/dL (8.6-10.3); Globulin 3.4 g/dL (2-4); Potassium 4.4 mmol/L (3.5-5.0); Total Bilirubin 1.6 mg/dL (0.2-1.0); Total Protein 6.2 g/dL (6.4-8.9); eGFR CKD-EPI 98.3 (>60)
[2022-01-24] MEDS: fentaNYL Patch Check Q Shift NOTE FOLLOW UP SCH ×2 (06:50→19:16)
[2022-01-24] MEDS: HYDROmorphone 1 MG/1 ML SYRINGE IV SLOW PU PRN ×3 (07:41→21:21)
[2022-01-24] MEDS: Ondansetron 4 mg VIAL 2 MG/ML 2 ml VIAL IV PRN (07:42)
[2022-01-24] MEDS: Nystatin SUSPENSION 100,000 UNITS/ML UDC SWISH SWAL SCH ×4 (07:45→21:14)
[2022-01-24] MEDS: Magnesium Hydroxide LIQ 30 ML UDC PO SCH ×2 (08:48→21:13)
[2022-01-24] MEDS: Senna TAB 8.6 mg TAB PO SCH ×2 (08:49→21:12)
[2022-01-24] MEDS: Polyethylene Glycol 3350 17 GM PACKET PO SCH (08:49)
[2022-01-24] MEDS: Prochlorperazine 5 mg/ml 2 ml VIAL (10 mg) IV PRN (12:07)
[2022-01-24] MEDS: fentaNYL PATCH 50 MCG/HR 1 PATCH TRANSDERM SCH (19:13)
[2022-01-24] MEDS: Enoxaparin 40 MG/0.4 ML SYR SUBCUT SCH (21:14)
[2022-01-25 05:05] LABS: ABS Basophils 0.1 10^3/ul (0-0.2); ABS Eosinophils 0.7 10^3/ul (0-0.6); ABS Lymphocytes 0.8 10^3/ul (1.0-4.8); ABS Monocytes 0.6 10^3/ul (0-0.8); ABS Neutrophils 3.7 10^3/ul (1.5-7.7); Eosinophil % 12.1 %; Hematocrit 25 % (42-52); Hemoglobin 8.3 g/dL (14.0-18.0); Lymphocyte % 13.9 %; Mean Corpuscular HGB Conc 34 g/dL (31-36); Mean Corpuscular Hemoglobin 29 pg (27-31); Mean Corpuscular Volume 86 fL (80-94); Mean Platelet Volume 6.5 fL (7.4-10.4); Platelet Count 566 10^3/uL (150-450); Red Blood Count 2.85 10^6 /uL (4.18-5.48); Red Cell Distribution Width 17 % (10-15); White Blood Count 5.8 10^3/uL (3.5-10.8)
[2022-01-25 05:28] LABS: Albumin 2.5 g/dL (3.2-5.2); Albumin/Globulin Ratio 0.8 (1-3); Calcium 8.7 mg/dL (8.6-10.3); Globulin 3.1 g/dL (2-4); Magnesium 1.7 mg/dL (1.9-2.7); Potassium 4.1 mmol/L (3.5-5.0); Total Bilirubin 0.9 mg/dL (0.2-1.0); Total Protein 5.6 g/dL (6.4-8.9); eGFR CKD-EPI 99.5 (>60)
[2022-01-25] MEDS: fentaNYL Patch Check Q Shift NOTE FOLLOW UP SCH ×2 (06:41→19:26)
[2022-01-25] MEDS: Senna TAB 8.6 mg TAB PO SCH ×2 (09:10→20:13)
[2022-01-25] MEDS: Polyethylene Glycol 3350 17 GM PACKET PO SCH (09:10)
[2022-01-25] MEDS: HYDROmorphone 1 MG/1 ML SYRINGE IV SLOW PU PRN ×3 (09:10→20:20)
[2022-01-25] MEDS: Nystatin SUSPENSION 100,000 UNITS/ML UDC SWISH SWAL SCH ×4 (09:10→20:13)
[2022-01-25] MEDS: Magnesium Hydroxide LIQ 30 ML UDC PO SCH ×2 (09:10→20:14)
[2022-01-25] MEDS: Enoxaparin 40 MG/0.4 ML SYR SUBCUT SCH (20:13)
[2022-01-26] MEDS: HYDROmorphone 1 MG/1 ML SYRINGE IV SLOW PU PRN ×5 (01:20→21:22)
[2022-01-26 05:42] LABS: Hematocrit 25 % (42-52); Hemoglobin 8.3 g/dL (14.0-18.0); Mean Corpuscular HGB Conc 33 g/dL (31-36); Mean Corpuscular Hemoglobin 29 pg (27-31); Mean Corpuscular Volume 87 fL (80-94); Mean Platelet Volume 6.5 fL (7.4-10.4); Platelet Count 533 10^3/uL (150-450); Red Blood Count 2.91 10^6 /uL (4.18-5.48); Red Cell Distribution Width 17 % (10-15); White Blood Count 5.5 10^3/uL (3.5-10.8)
[2022-01-26 06:18] LABS: Albumin 2.5 g/dL (3.2-5.2); Albumin/Globulin Ratio 0.8 (1-3); C Reactive Protein 77.11 mg/L (<8.01); Calcium 8.6 mg/dL (8.6-10.3); Globulin 3.1 g/dL (2-4); Magnesium 1.7 mg/dL (1.9-2.7); Potassium 4.1 mmol/L (3.5-5.0); Total Bilirubin 0.7 mg/dL (0.2-1.0); Total Protein 5.6 g/dL (6.4-8.9); eGFR CKD-EPI 101.7 (>60)
[2022-01-26] MEDS: fentaNYL Patch Check Q Shift NOTE FOLLOW UP SCH ×2 (07:16→18:43)
[2022-01-26] MEDS: Senna TAB 8.6 mg TAB PO SCH ×2 (08:32→20:24)
[2022-01-26] MEDS: Polyethylene Glycol 3350 17 GM PACKET PO SCH (08:32)
[2022-01-26] MEDS: Magnesium Hydroxide LIQ 30 ML UDC PO SCH ×2 (08:32→20:24)
[2022-01-26] MEDS: Nystatin SUSPENSION 100,000 UNITS/ML UDC SWISH SWAL SCH ×4 (08:32→20:24)
[2022-01-26] MEDS: Enoxaparin 40 MG/0.4 ML SYR SUBCUT SCH (20:24)
[2022-01-27] MEDS: HYDROmorphone 1 MG/1 ML SYRINGE IV SLOW PU PRN ×5 (02:20→21:34)
[2022-01-27] MEDS: fentaNYL Patch Check Q Shift NOTE FOLLOW UP SCH ×2 (07:04→18:42)
[2022-01-27] MEDS: Nystatin SUSPENSION 100,000 UNITS/ML UDC SWISH SWAL SCH (09:38)
[2022-01-27] MEDS: Senna TAB 8.6 mg TAB PO SCH ×2 (09:38→21:23)
[2022-01-27] MEDS: Magnesium Hydroxide LIQ 30 ML UDC PO SCH ×2 (09:39→21:23)
[2022-01-27] MEDS: Polyethylene Glycol 3350 17 GM PACKET PO SCH (09:39)
[2022-01-27] MEDS: Enoxaparin 40 MG/0.4 ML SYR SUBCUT SCH (21:21)
[2022-01-27] MEDS: fentaNYL PATCH 50 MCG/HR 1 PATCH TRANSDERM SCH (21:30)
[2022-01-28] MEDS ORDERED: HYDROmorphone 0.5 MG/0.5 ML SYRINGE IV ONE (06:25)
[2022-01-28] MEDS: fentaNYL Patch Check Q Shift NOTE FOLLOW UP SCH ×2 (07:02→19:53)
[2022-01-28] MEDS: Acetaminophen IV 1 GM/100ML 100 ML IV PRN (07:36)
[2022-01-28] MEDS: Polyethylene Glycol 3350 17 GM PACKET PO SCH (09:12)
[2022-01-28] MEDS: Senna TAB 8.6 mg TAB PO SCH ×2 (09:12→20:59)
[2022-01-28] MEDS: Magnesium Hydroxide LIQ 30 ML UDC PO SCH ×2 (09:12→21:11)
[2022-01-28] MEDS: HYDROmorphone 1 MG/1 ML SYRINGE IV SLOW PU PRN ×3 (10:37→23:53)
[2022-01-28] MEDS ORDERED: HYDROmorphone 0.5 MG/0.5 ML SYRINGE ONE (14:39)
[2022-01-28] MEDS: Enoxaparin 40 MG/0.4 ML SYR SUBCUT SCH (21:00)
[2022-01-29] MEDS: HYDROmorphone 1 MG/1 ML SYRINGE IV SLOW PU PRN ×3 (04:09→17:48)
[2022-01-29] MEDS: fentaNYL Patch Check Q Shift NOTE FOLLOW UP SCH ×2 (07:13→18:58)
[2022-01-29] MEDS: Magnesium Hydroxide LIQ 30 ML UDC PO SCH ×2 (09:35→21:18)
[2022-01-29] MEDS: Senna TAB 8.6 mg TAB PO SCH ×2 (09:35→21:18)
[2022-01-29] MEDS: Polyethylene Glycol 3350 17 GM PACKET PO SCH (09:36)
[2022-01-29] MEDS: Prochlorperazine 5 mg/ml 2 ml VIAL (10 mg) IV PRN (18:06)
[2022-01-29] MEDS: Enoxaparin 40 MG/0.4 ML SYR SUBCUT SCH (21:17)
[2022-01-30] MEDS: HYDROmorphone 1 MG/1 ML SYRINGE IV SLOW PU PRN ×4 (05:08→20:34)
[2022-01-30] MEDS: Ondansetron 4 mg VIAL 2 MG/ML 2 ml VIAL IV PRN ×2 (05:34→14:17)
[2022-01-30 05:58] LABS: Hematocrit 26 % (42-52); Hemoglobin 8.7 g/dL (14.0-18.0); Mean Corpuscular HGB Conc 34 g/dL (31-36); Mean Corpuscular Hemoglobin 29 pg (27-31); Mean Corpuscular Volume 86 fL (80-94); Mean Platelet Volume 6.7 fL (7.4-10.4); Platelet Count 556 10^3/uL (150-450); Red Blood Count 2.99 10^6 /uL (4.18-5.48); Red Cell Distribution Width 17 % (10-15); White Blood Count 8.1 10^3/uL (3.5-10.8)
[2022-01-30 06:37] LABS: Albumin 2.8 g/dL (3.2-5.2); Albumin/Globulin Ratio 0.9 (1-3); Calcium 8.4 mg/dL (8.6-10.3); Globulin 3.1 g/dL (2-4); Potassium 3.9 mmol/L (3.5-5.0); Total Protein 5.9 g/dL (6.4-8.9); eGFR CKD-EPI 101.7 (>60)
[2022-01-30] MEDS: fentaNYL Patch Check Q Shift NOTE FOLLOW UP SCH ×2 (07:28→19:31)
[2022-01-30 08:41] LABS: Magnesium 1.9 mg/dL (1.9-2.7)
[2022-01-30] MEDS: Magnesium Hydroxide LIQ 30 ML UDC PO SCH ×2 (08:56→20:25)
[2022-01-30] MEDS: Prochlorperazine 5 mg/ml 2 ml VIAL (10 mg) IV PRN ×2 (08:57→20:33)
[2022-01-30] MEDS: Senna TAB 8.6 mg TAB PO SCH ×2 (09:53→20:26)
[2022-01-30] MEDS: Polyethylene Glycol 3350 17 GM PACKET PO SCH (09:53)
[2022-01-30] MEDS: Enoxaparin 40 MG/0.4 ML SYR SUBCUT SCH (20:25)
[2022-01-30] MEDS: fentaNYL PATCH 50 MCG/HR 1 PATCH TRANSDERM SCH (20:45)
[2022-01-31] MEDS: HYDROmorphone 1 MG/1 ML SYRINGE IV SLOW PU PRN ×3 (05:22→19:33)
[2022-01-31 06:35] LABS: INR 1.21 (0.86-1.15)
[2022-01-31] MEDS: fentaNYL Patch Check Q Shift NOTE FOLLOW UP SCH ×2 (07:17→19:05)
[2022-01-31] MEDS ORDERED: ceFAZolin 1 GM ADVAN 1 GM ADDV.VIAL IVPB ONE (08:30)
[2022-01-31] MEDS ORDERED: HYDROmorphone 0.5 MG/0.5 ML SYRINGE ONE (08:31)
[2022-01-31] MEDS ORDERED: Lidocaine 1% w EPI 1:200,000 SDV 30 ML VIAL INJ ONE (08:38)
[2022-01-31] MEDS: Magnesium Hydroxide LIQ 30 ML UDC PO SCH ×3 (09:22→21:23)
[2022-01-31] MEDS: Polyethylene Glycol 3350 17 GM PACKET PO SCH (09:22)
[2022-01-31] MEDS: Senna TAB 8.6 mg TAB PO SCH ×2 (09:22→21:23)
[2022-01-31] MEDS: Ondansetron 4 mg VIAL 2 MG/ML 2 ml VIAL IV PRN (16:57)
[2022-01-31] MEDS: Enoxaparin 40 MG/0.4 ML SYR SUBCUT SCH (21:23)
[2022-02-01] MEDS: fentaNYL Patch Check Q Shift NOTE FOLLOW UP SCH ×2 (07:08→18:45)
[2022-02-01 07:32] LABS: ABS Basophils 0.1 10^3/ul (0-0.2); ABS Eosinophils 0.6 10^3/ul (0-0.6); ABS Lymphocytes 0.4 10^3/ul (1.0-4.8); ABS Monocytes 0.4 10^3/ul (0-0.8); ABS Neutrophils 3.9 10^3/ul (1.5-7.7); Eosinophil % 10.3 %; Hematocrit 28 % (42-52); Hemoglobin 9.6 g/dL (14.0-18.0); Mean Corpuscular HGB Conc 34 g/dL (31-36); Mean Corpuscular Hemoglobin 30 pg (27-31); Mean Corpuscular Volume 88 fL (80-94); Mean Platelet Volume 6.6 fL (7.4-10.4); Platelet Count 449 10^3/uL (150-450); Red Blood Count 3.17 10^6 /uL (4.18-5.48); Red Cell Distribution Width 17 % (10-15); White Blood Count 5.4 10^3/uL (3.5-10.8)
[2022-02-01 08:15] LABS: Albumin 2.9 g/dL (3.2-5.2); Albumin/Globulin Ratio 0.9 (1-3); Calcium 8.7 mg/dL (8.6-10.3); Globulin 3.4 g/dL (2-4); Potassium 4.4 mmol/L (3.5-5.0); Total Bilirubin 1.1 mg/dL (0.2-1.0); Total Protein 6.3 g/dL (6.4-8.9); eGFR CKD-EPI 99.9 (>60)
[2022-02-01] MEDS: Senna TAB 8.6 mg TAB PO SCH ×2 (09:12→20:27)
[2022-02-01] MEDS: Polyethylene Glycol 3350 17 GM PACKET PO SCH (09:12)
[2022-02-01] MEDS: Magnesium Hydroxide LIQ 30 ML UDC PO SCH ×2 (09:12→20:28)
[2022-02-01] MEDS: HYDROmorphone 1 MG/1 ML SYRINGE IV SLOW PU PRN ×3 (09:23→21:04)
[2022-02-01] MEDS: Ondansetron 4 mg VIAL 2 MG/ML 2 ml VIAL IV PRN (16:51)
[2022-02-01] MEDS ORDERED: fentaNYL PATCH 75 MCG/HR 1 PATCH TRANSDERM SCH (18:30)
[2022-02-01] MEDS: Enoxaparin 40 MG/0.4 ML SYR SUBCUT SCH ×2 (20:28→20:30)
[2022-02-01] MEDS ORDERED: HYDROmorphone 1 MG/1 ML SYRINGE IV SLOW PU ONE (23:00)
[2022-02-02] MEDS: Ondansetron 4 mg VIAL 2 MG/ML 2 ml VIAL IV PRN (04:51)
[2022-02-02] MEDS: fentaNYL Patch Check Q Shift NOTE FOLLOW UP SCH ×2 (07:22→19:04)
[2022-02-02] MEDS: HYDROmorphone 1 MG/1 ML SYRINGE IV SLOW PU PRN ×3 (08:35→18:28)
[2022-02-02] MEDS: Polyethylene Glycol 3350 17 GM PACKET PO SCH (08:36)
[2022-02-02] MEDS: Magnesium Hydroxide LIQ 30 ML UDC PO SCH ×2 (08:36→20:44)
[2022-02-02] MEDS: Senna TAB 8.6 mg TAB PO SCH ×2 (08:37→20:44)
[2022-02-02] MEDS: Prochlorperazine 5 mg/ml 2 ml VIAL (10 mg) IV PRN (13:48)
[2022-02-02] MEDS: Enoxaparin 40 MG/0.4 ML SYR SUBCUT SCH (20:47)
[2022-02-03] MEDS: fentaNYL Patch Check Q Shift NOTE FOLLOW UP SCH ×2 (07:01→18:47)
[2022-02-03] MEDS: Magnesium Hydroxide LIQ 30 ML UDC PO SCH ×2 (09:17→21:13)
[2022-02-03] MEDS: HYDROmorphone 1 MG/1 ML SYRINGE IV SLOW PU PRN ×2 (09:22→16:02)
[2022-02-03] MEDS: Polyethylene Glycol 3350 17 GM PACKET PO SCH (11:50)
[2022-02-03] MEDS: Senna TAB 8.6 mg TAB PO SCH ×2 (11:50→21:16)
[2022-02-03] MEDS: Prochlorperazine 5 mg/ml 2 ml VIAL (10 mg) IV PRN ×2 (12:36→21:08)
[2022-02-03] MEDS: fentaNYL PATCH 100 MCG/HR 1 PATCH TRANSDERM SCH (12:47)
[2022-02-03] MEDS: Enoxaparin 40 MG/0.4 ML SYR SUBCUT SCH (21:16)
[2022-02-03] MEDS: HYDROmorphone 1 MG/1 ML SYRINGE IV PRN (21:24)
[2022-02-04 06:38] LABS: ABS Eosinophils 0.3 10^3/ul (0-0.6); ABS Lymphocytes 0.3 10^3/ul (1.0-4.8); ABS Monocytes 0.5 10^3/ul (0-0.8); ABS Neutrophils 3.9 10^3/ul (1.5-7.7); Eosinophil % 6.9 %; Hematocrit 26 % (42-52); Hemoglobin 8.5 g/dL (14.0-18.0); Lymphocyte % 6.8 %; Mean Corpuscular HGB Conc 33 g/dL (31-36); Mean Corpuscular Hemoglobin 29 pg (27-31); Mean Corpuscular Volume 88 fL (80-94); Mean Platelet Volume 6.6 fL (7.4-10.4); Platelet Count 371 10^3/uL (150-450); Red Blood Count 2.99 10^6 /uL (4.18-5.48); Red Cell Distribution Width 17 % (10-15); White Blood Count 5.1 10^3/uL (3.5-10.8)
[2022-02-04 07:08] LABS: Albumin 2.8 g/dL (3.2-5.2); Albumin/Globulin Ratio 0.9 (1-3); Calcium 8.4 mg/dL (8.6-10.3); Globulin 3.2 g/dL (2-4); Potassium 4.3 mmol/L (3.5-5.0); Total Bilirubin 0.7 mg/dL (0.2-1.0); eGFR CKD-EPI 104.1 (>60)
[2022-02-04] MEDS: fentaNYL Patch Check Q Shift NOTE FOLLOW UP SCH ×2 (07:14→18:42)
[2022-02-04] MEDS: HYDROmorphone 1 MG/1 ML SYRINGE IV PRN ×2 (07:29→12:35)
[2022-02-04] MEDS: Magnesium Hydroxide LIQ 30 ML UDC PO SCH ×2 (09:40→22:17)
[2022-02-04] MEDS: Polyethylene Glycol 3350 17 GM PACKET PO SCH (09:40)
[2022-02-04] MEDS: Senna TAB 8.6 mg TAB PO SCH ×2 (09:40→22:16)
[2022-02-04] MEDS: Prochlorperazine 5 mg/ml 2 ml VIAL (10 mg) IV PRN ×2 (15:25→22:09)
[2022-02-04] MEDS: Enoxaparin 40 MG/0.4 ML SYR SUBCUT SCH (22:17)
[2022-02-05] MEDS: HYDROmorphone 1 MG/1 ML SYRINGE IV PRN ×4 (04:11→21:06)
[2022-02-05] MEDS: fentaNYL Patch Check Q Shift NOTE FOLLOW UP SCH ×2 (07:12→19:00)
[2022-02-05] MEDS: Senna TAB 8.6 mg TAB PO SCH ×2 (08:35→20:37)
[2022-02-05] MEDS: Magnesium Hydroxide LIQ 30 ML UDC PO SCH ×2 (08:35→20:37)
[2022-02-05] MEDS: Polyethylene Glycol 3350 17 GM PACKET PO SCH (08:47)
[2022-02-05] MEDS ORDERED: FOSAPREPITANT IV ONE ×2 (09:37)
[2022-02-05] MEDS ORDERED: Metoclopramide 5 MG/ML VIAL (10 mg) IV SLOW PU PRN (11:05)
[2022-02-05] MEDS ORDERED: FOSAPREPITANT IVPB ONE (11:15)
[2022-02-05] MEDS ORDERED: NS 0.9% IVPB ONE (11:15)
[2022-02-05] MEDS: Scopolamine 1 mg/72hr PATCH TRANSDERM SCH (11:41)
[2022-02-05] MEDS ORDERED: Vancomycin per Pharmacy 1 EA NOTE FOLLOW UP SCH (17:00)
[2022-02-05] MEDS ORDERED: Vancomycin 1,250 MG in NS 0.9% 250 ml 250 ML IVPB ONE (18:00)
[2022-02-05] MEDS: Enoxaparin 40 MG/0.4 ML SYR SUBCUT SCH (20:36)
[2022-02-05] MEDS: Vancomycin 1,250 MG in NS 0.9% 250 ml 250 ML IVPB SCH (23:46)
[2022-02-06] MEDS ORDERED: Vancomycin Trough Check NOTE FOLLOW UP ONE (07:00)
[2022-02-06] MEDS: fentaNYL Patch Check Q Shift NOTE FOLLOW UP SCH ×2 (07:52→19:23)
[2022-02-06] MEDS: Vancomycin 1,250 MG in NS 0.9% 250 ml 250 ML IVPB SCH ×3 (09:18→23:30)
[2022-02-06] MEDS: HYDROmorphone 1 MG/1 ML SYRINGE IV PRN (10:28)
[2022-02-06] MEDS: Magnesium Hydroxide LIQ 30 ML UDC PO SCH ×2 (11:55→19:29)
[2022-02-06] MEDS: Senna TAB 8.6 mg TAB PO SCH ×2 (11:56→19:30)
[2022-02-06] MEDS: Polyethylene Glycol 3350 17 GM PACKET PO SCH (11:56)
[2022-02-06] MEDS: fentaNYL PATCH 100 MCG/HR 1 PATCH TRANSDERM SCH (11:56)
[2022-02-06] MEDS: Enoxaparin 40 MG/0.4 ML SYR SUBCUT SCH (19:29)
[2022-02-07] MEDS: fentaNYL Patch Check Q Shift NOTE FOLLOW UP SCH ×2 (06:46→21:13)
[2022-02-07] MEDS ORDERED: Vancomycin Trough Check NOTE FOLLOW UP ONE (07:30)
[2022-02-07 08:18] LABS: eGFR CKD-EPI 107.9 (>60)
[2022-02-07] MEDS: Magnesium Hydroxide LIQ 30 ML UDC PO SCH ×2 (08:59→21:08)
[2022-02-07] MEDS: Senna TAB 8.6 mg TAB PO SCH ×2 (08:59→21:09)
[2022-02-07] MEDS: Polyethylene Glycol 3350 17 GM PACKET PO SCH (08:59)
[2022-02-07 13:37] LABS: ABS Basophils 0.1 10^3/ul (0-0.2); ABS Eosinophils 0.3 10^3/ul (0-0.6); ABS Lymphocytes 0.3 10^3/ul (1.0-4.8); ABS Monocytes 0.6 10^3/ul (0-0.8); ABS Neutrophils 4.9 10^3/ul (1.5-7.7); Eosinophil % 5.1 %; Hematocrit 28 % (42-52); Hemoglobin 9.1 g/dL (14.0-18.0); Lymphocyte % 4.5 %; Mean Corpuscular HGB Conc 32 g/dL (31-36); Mean Corpuscular Hemoglobin 28 pg (27-31); Mean Corpuscular Volume 88 fL (80-94); Mean Platelet Volume 6.8 fL (7.4-10.4); Platelet Count 422 10^3/uL (150-450); Red Blood Count 3.21 10^6 /uL (4.18-5.48); Red Cell Distribution Width 16 % (10-15); White Blood Count 6.2 10^3/uL (3.5-10.8)
[2022-02-07 14:36] LABS: Albumin 3.1 g/dL (3.2-5.2); Albumin/Globulin Ratio 0.9 (1-3); C Reactive Protein 183.69 mg/L (<8.01); Calcium 8.7 mg/dL (8.6-10.3); Globulin 3.6 g/dL (2-4); Potassium 4.4 mmol/L (3.5-5.0); Total Bilirubin 0.7 mg/dL (0.2-1.0); Total Protein 6.7 g/dL (6.4-8.9); eGFR CKD-EPI 104.6 (>60)
[2022-02-07] MEDS: Vancomycin 1,250 MG in NS 0.9% 250 ml 250 ML IVPB SCH (19:21)
[2022-02-07] MEDS: Enoxaparin 40 MG/0.4 ML SYR SUBCUT SCH (21:09)
[2022-02-08 06:22] LABS: ABS Basophils 0.1 10^3/ul (0-0.2); ABS Eosinophils 0.4 10^3/ul (0-0.6); ABS Lymphocytes 0.4 10^3/ul (1.0-4.8); ABS Monocytes 0.6 10^3/ul (0-0.8); ABS Neutrophils 3.2 10^3/ul (1.5-7.7); Eosinophil % 7.7 %; Hematocrit 26 % (42-52); Hemoglobin 8.4 g/dL (14.0-18.0); Lymphocyte % 9.3 %; Mean Corpuscular HGB Conc 32 g/dL (31-36); Mean Corpuscular Hemoglobin 28 pg (27-31); Mean Corpuscular Volume 87 fL (80-94); Mean Platelet Volume 6.6 fL (7.4-10.4); Platelet Count 338 10^3/uL (150-450); Red Blood Count 3.01 10^6 /uL (4.18-5.48); Red Cell Distribution Width 16 % (10-15); White Blood Count 4.6 10^3/uL (3.5-10.8)
[2022-02-08 06:58] LABS: Albumin 2.7 g/dL (3.2-5.2); Albumin/Globulin Ratio 0.9 (1-3); C Reactive Protein 129.79 mg/L (<8.01); Calcium 8.5 mg/dL (8.6-10.3); Globulin 3.1 g/dL (2-4); Potassium 4.2 mmol/L (3.5-5.0); Total Bilirubin 0.5 mg/dL (0.2-1.0); Total Protein 5.8 g/dL (6.4-8.9); eGFR CKD-EPI 106.2 (>60)
[2022-02-08] MEDS: fentaNYL Patch Check Q Shift NOTE FOLLOW UP SCH ×2 (07:11→19:31)
[2022-02-08] MEDS: Magnesium Hydroxide LIQ 30 ML UDC PO SCH ×2 (09:01→22:30)
[2022-02-08] MEDS: Scopolamine 1 mg/72hr PATCH TRANSDERM SCH (09:02)
[2022-02-08] MEDS: Senna TAB 8.6 mg TAB PO SCH ×2 (09:06→22:30)
[2022-02-08] MEDS: Polyethylene Glycol 3350 17 GM PACKET PO SCH (09:06)
[2022-02-08] MEDS: Enoxaparin 40 MG/0.4 ML SYR SUBCUT SCH (22:29)
[2022-02-09] MEDS: fentaNYL Patch Check Q Shift NOTE FOLLOW UP SCH ×2 (07:31→19:05)
[2022-02-09] MEDS: Magnesium Hydroxide LIQ 30 ML UDC PO SCH ×2 (08:52→20:28)
[2022-02-09] MEDS: Senna TAB 8.6 mg TAB PO SCH ×2 (08:53→20:27)
[2022-02-09] MEDS: Polyethylene Glycol 3350 17 GM PACKET PO SCH (08:53)
[2022-02-09] MEDS: fentaNYL PATCH 100 MCG/HR 1 PATCH TRANSDERM SCH (10:17)
[2022-02-09] MEDS: Enoxaparin 40 MG/0.4 ML SYR SUBCUT SCH (20:28)
[2022-02-10] MEDS: fentaNYL Patch Check Q Shift NOTE FOLLOW UP SCH ×2 (06:58→18:43)
[2022-02-10 08:10] LABS: ABS Eosinophils 0.3 10^3/ul (0-0.6); ABS Lymphocytes 0.4 10^3/ul (1.0-4.8); ABS Monocytes 0.6 10^3/ul (0-0.8); ABS Neutrophils 2.9 10^3/ul (1.5-7.7); Eosinophil % 7.9 %; Hematocrit 26 % (42-52); Hemoglobin 8.5 g/dL (14.0-18.0); Lymphocyte % 9.2 %; Mean Corpuscular HGB Conc 33 g/dL (31-36); Mean Corpuscular Hemoglobin 29 pg (27-31); Mean Corpuscular Volume 87 fL (80-94); Mean Platelet Volume 6.4 fL (7.4-10.4); Platelet Count 337 10^3/uL (150-450); Red Blood Count 2.97 10^6 /uL (4.18-5.48); Red Cell Distribution Width 16 % (10-15); White Blood Count 4.2 10^3/uL (3.5-10.8)
[2022-02-10] MEDS: Magnesium Hydroxide LIQ 30 ML UDC PO SCH ×2 (08:27→23:05)
[2022-02-10] MEDS: Polyethylene Glycol 3350 17 GM PACKET PO SCH (08:27)
[2022-02-10] MEDS: Senna TAB 8.6 mg TAB PO SCH ×2 (08:27→23:05)
[2022-02-10 08:54] LABS: Albumin 2.7 g/dL (3.2-5.2); Albumin/Globulin Ratio 0.8 (1-3); C Reactive Protein 86.45 mg/L (<8.01); Calcium 8.5 mg/dL (8.6-10.3); Globulin 3.2 g/dL (2-4); Potassium 4.1 mmol/L (3.5-5.0); Total Bilirubin 0.5 mg/dL (0.2-1.0); Total Protein 5.9 g/dL (6.4-8.9); eGFR CKD-EPI 105.1 (>60)
[2022-02-10] MEDS ORDERED: HYDROmorphone 0.5 MG/0.5 ML SYRINGE IV SLOW PU PRN (08:59)
[2022-02-10] MEDS ORDERED: Lidocaine 2.5%/Prilocain 2.5% 5 GM TUBE TOPICAL SCH (09:00)
[2022-02-10] MEDS: Enoxaparin 40 MG/0.4 ML SYR SUBCUT SCH (23:05)
[2022-02-11] MEDS ORDERED: HYDROmorphone 0.5 MG/0.5 ML SYRINGE IV SLOW PU ONE (03:01)
[2022-02-11] MEDS ORDERED: Propofol 10 MG/ML 20 ML BTL ONE (06:49)
[2022-02-11] MEDS ORDERED: Lidocaine 2% PF 5 ML VIAL ONE (06:49)
[2022-02-11] MEDS ORDERED: Rocuronium 50 mg VIAL 10 mg/ml 5 ml VIAL (50 mg) ONE (06:49)
[2022-02-11] MEDS ORDERED: Midazolam 2 mg/2 ml VIAL 1 mg/ml 2 ml VIAL (2 mg) ONE (06:49)
[2022-02-11] MEDS ORDERED: fentaNYL 100 mcg/2 ml 50 MCG/ML VIAL ONE (06:49)
[2022-02-11] MEDS ORDERED: Ondansetron 4 mg VIAL 2 MG/ML 2 ml VIAL ONE (06:50)
[2022-02-11] MEDS ORDERED: Dexamethasone IV 4 MG/ML VIAL 1 ml VIAL ONE (06:50)
[2022-02-11] MEDS: fentaNYL Patch Check Q Shift NOTE FOLLOW UP SCH ×2 (07:01→18:37)
[2022-02-11] MEDS ORDERED: Naloxone 0.4 mg VIAL 0.4 mg/ml 1 ml VIAL IV PRN (09:38)
[2022-02-11] MEDS: Magnesium Hydroxide LIQ 30 ML UDC PO SCH ×2 (10:19→19:59)
[2022-02-11] MEDS: Senna TAB 8.6 mg TAB PO SCH ×2 (10:19→19:58)
[2022-02-11] MEDS: Polyethylene Glycol 3350 17 GM PACKET PO SCH (10:19)
[2022-02-11] MEDS: Scopolamine 1 mg/72hr PATCH TRANSDERM SCH (10:48)
[2022-02-11] MEDS: Cefepime 2 GM in Dextrose 2 GM/50 ML BAG IV SCH (12:58)
[2022-02-11] MEDS: Enoxaparin 40 MG/0.4 ML SYR SUBCUT SCH (19:58)
[2022-02-12] MEDS: Cefepime 2 GM in Dextrose 2 GM/50 ML BAG IV SCH ×3 (00:23→23:36)
[2022-02-12 05:27] LABS: ABS Eosinophils 0.2 10^3/ul (0-0.6); ABS Lymphocytes 0.4 10^3/ul (1.0-4.8); ABS Monocytes 0.6 10^3/ul (0-0.8); ABS Neutrophils 3.4 10^3/ul (1.5-7.7); Eosinophil % 4.1 %; Hematocrit 25 % (42-52); Lymphocyte % 8.6 %; Mean Corpuscular HGB Conc 32 g/dL (31-36); Mean Corpuscular Hemoglobin 28 pg (27-31); Mean Corpuscular Volume 86 fL (80-94); Mean Platelet Volume 6.2 fL (7.4-10.4); Platelet Count 348 10^3/uL (150-450); Red Cell Distribution Width 16 % (10-15); White Blood Count 4.6 10^3/uL (3.5-10.8)
[2022-02-12 06:16] LABS: Albumin 2.5 g/dL (3.2-5.2); Calcium 8.2 mg/dL (8.6-10.3); Potassium 4.3 mmol/L (3.5-5.0); Total Bilirubin 0.4 mg/dL (0.2-1.0)
[2022-02-12 06:22] LABS: Albumin/Globulin Ratio 0.8 (1-3); C Reactive Protein 70.85 mg/L (<8.01); Total Protein 5.5 g/dL (6.4-8.9); eGFR CKD-EPI 102.2 (>60)
[2022-02-12] MEDS: fentaNYL Patch Check Q Shift NOTE FOLLOW UP SCH ×2 (06:38→19:32)
[2022-02-12] MEDS: Senna TAB 8.6 mg TAB PO SCH ×2 (08:34→19:57)
[2022-02-12] MEDS: Magnesium Hydroxide LIQ 30 ML UDC PO SCH ×2 (08:34→19:56)
[2022-02-12] MEDS: Polyethylene Glycol 3350 17 GM PACKET PO SCH (08:34)
[2022-02-12] MEDS: fentaNYL PATCH 100 MCG/HR 1 PATCH TRANSDERM SCH (11:45)
[2022-02-12] MEDS: Enoxaparin 40 MG/0.4 ML SYR SUBCUT SCH (19:57)
[2022-02-13] MEDS: fentaNYL Patch Check Q Shift NOTE FOLLOW UP SCH (07:36)
[2022-02-13] MEDS: Polyethylene Glycol 3350 17 GM PACKET PO SCH (10:58)
[2022-02-13] MEDS: Senna TAB 8.6 mg TAB PO SCH (10:58)
[2022-02-13] MEDS: Magnesium Hydroxide LIQ 30 ML UDC PO SCH (10:58)
[2022-02-13 11:15] VITALS: BP 130/79
== END 2022-02-13 18:00 | disposition home health service (06) | DRG 444 ==
LOC: ED 15:37 → EDHOLD 19:40 → SUATTDRO 19:40 → EDHOLD 01-08 13:45 → MED 01-08 15:01
PROVIDERS: ADMIT Internal Medicine; ATTEND Hospitalist

== ENCOUNTER 2022-03-18 17:59 | Inpatient (IN) ==
[2022-03-18] MEDS ORDERED: Al Hydrox/Mg Hydrox/Simet LIQ 30 ML UDC PO PRN (18:21)
[2022-03-18] MEDS ORDERED: Magnesium Hydroxide LIQ 30 ML UDC PO PRN (18:21)
[2022-03-18] MEDS: oxyCODONE SR 15 mg TAB PO SCH (19:54)
[2022-03-18] MEDS: Senna TAB 8.6 mg TAB PO SCH (19:54)
[2022-03-19] MEDS: oxyCODONE SR 15 mg TAB PO SCH ×4 (08:08→21:28)
[2022-03-19] MEDS: Polyethylene Glycol 3350 17 GM PACKET PO SCH (09:30)
[2022-03-19] MEDS: Senna TAB 8.6 mg TAB PO SCH ×2 (09:30→22:37)
[2022-03-19] MEDS: oxyCODONE 5 mg/5 ml ORAL.SOLN UDC PO PRN (11:23)
[2022-03-20] MEDS: oxyCODONE 5 mg/5 ml ORAL.SOLN UDC PO PRN ×3 (02:01→12:12)
[2022-03-20] MEDS: Polyethylene Glycol 3350 17 GM PACKET PO SCH (09:37)
[2022-03-20] MEDS: Senna TAB 8.6 mg TAB PO SCH ×2 (09:37→22:17)
[2022-03-20] MEDS: oxyCODONE SR 15 mg TAB PO SCH ×3 (09:37→22:17)
[2022-03-21] MEDS: oxyCODONE 5 mg/5 ml ORAL.SOLN UDC PO PRN ×2 (00:42→07:17)
[2022-03-21] MEDS: oxyCODONE SR 15 mg TAB PO SCH ×3 (09:41→19:38)
[2022-03-21] MEDS: Senna TAB 8.6 mg TAB PO SCH ×2 (09:42→19:39)
[2022-03-21] MEDS: Polyethylene Glycol 3350 17 GM PACKET PO SCH (09:42)
[2022-03-22] MEDS: Senna TAB 8.6 mg TAB PO SCH ×2 (07:50→21:31)
[2022-03-22] MEDS: oxyCODONE SR 15 mg TAB PO SCH ×3 (07:51→21:32)
[2022-03-22] MEDS: Polyethylene Glycol 3350 17 GM PACKET PO SCH (07:51)
[2022-03-22] MEDS: oxyCODONE 5 mg/5 ml ORAL.SOLN UDC PO PRN (10:18)
[2022-03-23] MEDS: oxyCODONE 5 mg/5 ml ORAL.SOLN UDC PO PRN (07:49)
[2022-03-23] MEDS: Senna TAB 8.6 mg TAB PO SCH ×2 (07:50→21:30)
[2022-03-23] MEDS: oxyCODONE SR 15 mg TAB PO SCH ×4 (07:50→21:31)
[2022-03-23] MEDS: Polyethylene Glycol 3350 17 GM PACKET PO SCH (07:51)
[2022-03-24] MEDS: oxyCODONE 5 mg/5 ml ORAL.SOLN UDC PO PRN ×3 (00:56→15:01)
[2022-03-24] MEDS: Polyethylene Glycol 3350 17 GM PACKET PO SCH (07:37)
[2022-03-24] MEDS: oxyCODONE SR 15 mg TAB PO SCH ×3 (07:37→21:23)
[2022-03-24] MEDS: Senna TAB 8.6 mg TAB PO SCH ×2 (07:37→20:55)
[2022-03-25] MEDS: Morphine ORAL CONCENTRATE 5 MG/0.25 ML ORAL.SYRIN SL PRN ×2 (05:56→08:09)
[2022-03-25] MEDS: oxyCODONE SR 15 mg TAB PO SCH ×3 (08:09→20:00)
[2022-03-25] MEDS: Senna TAB 8.6 mg TAB PO SCH (08:15)
[2022-03-25] MEDS: Polyethylene Glycol 3350 17 GM PACKET PO SCH (08:15)
[2022-03-26] MEDS: Senna TAB 8.6 mg TAB PO SCH ×2 (00:54→08:01)
[2022-03-26 07:25] VITALS: BP 104/68
[2022-03-26] MEDS: oxyCODONE SR 15 mg TAB PO SCH (07:59)
[2022-03-26] MEDS: Polyethylene Glycol 3350 17 GM PACKET PO SCH (08:01)
== END 2022-03-26 11:30 | disposition home or self-care (01) | DRG 437 ==
LOC: SUATTDRO 17:59 → MED 17:59
PROVIDERS: ADMIT Internal Medicine; ATTEND Internal Medicine